=== PATIENT | male | born 1995 | race Caucasian/White ===

== ENCOUNTER 2017-02-21 15:00 | Inpatient (IN) | payer OTHER, BC ==
[~2017-02-21] VITALS: Ht 188 cm; Wt 58.5 kg
[2017-02-21] VITALS (8 sets, daily range): BP systolic 115–122; BP diastolic 72–75; PULSE 98–105; RESP 16; TEMP 99.9; O2SAT 95–100
[~2017-02-21 15:00] MED LIST: LIDOCAINE HCL 2% 100 MG/5 ML SYRINGE IV PUSH ONE
[2017-02-21] MEDS ORDERED: SUCCINYLCHOLINE CHLORIDE 200 MG/10 ML VIAL ONE (15:10)
[2017-02-21] MEDS ORDERED: ETOMIDATE 20 MG/10 ML VIAL ONE (15:11)
[2017-02-21] MEDS ORDERED: MIDAZOLAM HCL 5 MG/ML VIAL (1 ML) ONE ×3 (15:13→16:10)
[2017-02-21] MEDS ORDERED: PROPOFOL 1000 MG/100 ML INJ 100 ML ONE ×2 (15:23→17:31)
[2017-02-21] MEDS ORDERED: DIPHTH/TETANUS/ACEL PERTUSSIS (BOOSTER) 0.5 ML VIAL/PFS IM ONE (15:26)
[2017-02-21 15:40] LABS: I-STAT POTASSIUM 3.3 MMOL/L (3.5-4.9); I-STAT SODIUM 143 MMOL/L (138-146)
[2017-02-21 15:44] LABS: AUTOMATED NEUTROPHIL # 16.7 TH/MM3 (1.8-7.7); BASOPHIL # 0.1 TH/MM3 (0-0.2); BASOPHIL % 0.2 % (0.0-2.0); EOSINOPHIL % 0.2 % (0.0-4.0); HEMATOCRIT 45.6 % (39.0-51.0); HEMO FLAGS DIFF FINAL; LYMPHOCYTE # 3.5 TH/MM3 (1.0-4.8); MEAN CORPUSCULAR HEMOGLOBIN 29.8 PG (27.0-34.0); MEAN CORPUSCULAR HGB CONC 33.8 % (32.0-36.0); NEUT % 75.6 % (16.0-70.0); PLATELET COUNT 315 TH/MM3 (150-450); RED BLOOD COUNT 5.18 MIL/MM3 (4.50-5.90); RED CELL DISTRIBUTION WIDTH 12.2 % (11.6-17.2); WHITE BLOOD COUNT 22.1 TH/MM3 (4.0-11.0)
[2017-02-21] MEDS ORDERED: MISCELLANEOUS NURSING INFORMATION XX SCH (15:45)
[2017-02-21] MEDS ORDERED: ENALAPRILAT 1.25 MG/ML VIAL IV PRN (15:45)
[2017-02-21] MEDS ORDERED: SODIUM CHLORIDE 0.9% FLUSH 10 ML FLUSH IV FLUSH PRN (15:45)
[2017-02-21] MEDS ORDERED: CHLORHEXIDINE GLUCONATE 2 % 1 PACK (2 CLOTHS) TOP PRN (15:45)
[2017-02-21 15:49] LABS: APTT (PATIENT) 25.2 SEC (24.3-30.1); PROTHROMBIN TIME - PATIENT 11.4 SEC (9.8-11.6)
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
[2017-02-21] MEDS ORDERED: IOHEXOL 350 MG/ML 10 ML VIAL (for RAD DIAG) IV ONE (15:55)
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
--- NOTE | 2017-02-21 16:43 | PD.OP ---
Operative Report Date of Surgery: Feb 21, 2017 Preoperative Diagnosis: Traumatic brain injury with a left acute subdural hemorrhage and cerebral contusions; multiple left frontal and temporal scalp lacerations Postoperative Diagnosis: Same Procedure: Left frontal twist drill hole Gino intracanal pressure monitor placement; repair of 7 cm frontal and 4 cm left temporal scalp laceration Anesthesia: Local with sedation Surgeon: Michele Teixeira M.D. Court Deputy(s): None Operation and Findings: Following administration of the intravenous Versed along with continuation of the Diprivan and fentanyl drip with the oxygen saturation and hemodynamic monitoring in the intensive care unit, the right frontal region was shaved and the prep with chlor prep and sterilely draped. A 7 cm left frontal scalp laceration along with 4 cm left temporal scalp laceration was visualized and cleaned and prepped with the ChloraPrep also. Skin ophelia are used for primary scalp laceration closure. Using landmarks of 11 cm behind the nasion and 3 cm to the left of the midline, a 1 cm scalp incision was made after infiltrating with 1% lidocaine with epinephrine solution. With a handheld drill a twist drill hole was made in the underlying dura penetrated with a blunt probe. The [place] bolt was then secured to the skull. The fiberoptic catheter zeroed and passed into the subarachnoid space with an opening pressure of 14 mmHg noted. A sterile dressing was applied. There were no complications and blood loss was less than 5 cc. Michele Teixeira MD Feb 21, 2017 16:43
[2017-02-21] MEDS: SODIUM CHLOR 0.9% 1000 ML INJ 1,000 ML IV SCH ×2 (17:00→23:11)
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
[2017-02-21] MEDS ORDERED: POTASSIUM PHOSPHATE MONOBASIC 500 MG TAB PO PRN (17:45)
[2017-02-21] MEDS ORDERED: POTASSIUM PHOSPHATE MONOBASIC 500 MG TAB PO/TUBE PRN (17:45)
[2017-02-21] MEDS ORDERED: MAGNESIUM SULFATE INJ 2 GM in SODIUM CHLORIDE 0.9% INJ 96 ML IV PRN (17:45)
[2017-02-21] MEDS ORDERED: POTASSIUM CHLORIDE 25 MEQ EFFERVESCENT TAB PO PRN (17:45)
[2017-02-21] MEDS ORDERED: MAGNESIUM OXIDE 400 MG TAB PO PRN (17:45)
[2017-02-21] MEDS ORDERED: POTASSIUM CHLOR 20 MEQ PREMIX 100 ML IV PRN (17:45)
[2017-02-21] MEDS ORDERED: MAGNESIUM SULFATE INJ 4 GM in SODIUM CHLORIDE 0.9% INJ 92 ML IV PRN (17:45)
[2017-02-21] MEDS ORDERED: SODIUM PHOSPHATE INJ 30 MMOL in SODIUM CHLOR 0.9% 250 ML INJ 240 ML IV PRN (17:45)
[2017-02-21] MEDS: PANTOPRAZOLE SODIUM 40 MG VIAL IVP SCH (18:00)
[2017-02-21] MEDS: fentaNYL DRIP 250 ML IV SCH (18:14)
[2017-02-21] MEDS: MIDAZOLAM 100 MG/ML INJ 100 ML IV SCH (18:14)
[2017-02-21] MEDS ORDERED: ceFAZolin 2 GM PREMIX 50 ML ONE (18:23)
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
[2017-02-21] MEDS ORDERED: IODIXANOL 320 MG/ML 50 ML VIAL (for RAD SPEC) I-ARTERIAL ONE (19:16)
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
[2017-02-21 20:17] LABS: AMPHETAMINE, URINE NEG (NEG); BARBITURATES, URINE NEG (NEG); COCAINE, URINE NEG (NEG)
[2017-02-21] MEDS: levETIRAcetam INJ 500 MG in SODIUM CHLORIDE 0.9% INJ 100 ML IV SCH (21:10)
[2017-02-21] MEDS: MULTIVITAMIN INJ 10 ML, THIAMINE INJ 100 MG, FOLIC ACID INJ 1 MG in SODIUM CHLORID 0.9%... IV SCH (21:10)
[2017-02-21] MEDS: DOCUSATE SODIUM 100 MG CAP PO SCH (21:10)
[2017-02-21] MEDS ORDERED: ACETAMINOPHEN 1000 MG/100 ML VIAL IV PRN (21:30)
[2017-02-21 21:37] LABS: HEMATOCRIT 38.3 % (39.0-51.0); REVIEW FLAG FINAL
[2017-02-21 21:55] LABS: BLOOD GAS BASE EXCESS -2.9 mmol/L (-2-2); BLOOD GAS CARBOXYHEMOGLOBIN 0.8 % (0-4); BLOOD GAS HCO3 21 mmol/L (22-26); BLOOD GAS METHEMOGLOBIN 0.9 % (0-2); BLOOD GAS O2 HGB SATURATION 98 % (90-100); BLOOD GAS OXYGEN CONTENT 18.4 Vol % (12.0-20.0); BLOOD GAS PCO2 30 mmHg (38-42); BLOOD GAS PO2 291 mmHg (61-120); BLOOD GAS TOTAL HGB 12.8 G/DL (12.0-16.0); CRITICAL VALUE NO; DRAW SITE ART LINE; FIO2 70 %; OXYGEN DEVICE VENTILATOR; STAT NO; TEMP CORR TO 98.6
[2017-02-21 21:56] LABS: VENT SETTINGS AC/16/500/PEEP 5
[2017-02-21] MEDS: BACITRACIN TOP OINT 15 GM TUBE TOP SCH (22:06)
[2017-02-21] MEDS: PROPOFOL 1000 MG/100 ML INJ 100 ML IV SCH (22:07)
[2017-02-22] VITALS (20 sets, daily range): BP systolic 90–143; BP diastolic 54–74; PULSE 100–134; RESP 16; TEMP 99.9–102.2; O2SAT 95–100
[2017-02-22] MEDS ORDERED: NOREPINEPHRINE-DEXTROSE DRIP 250 ML IV ONE (00:31)
[2017-02-22] MEDS ORDERED: TERBUTALINE INJ 1 MG/ML AMP SQ PRN (00:45)
[2017-02-22] MEDS ORDERED: NOREPINEPHRINE 4 MG/4 ML AMP ONE (00:56)
[2017-02-22 01:21] LABS: REVIEW FLAG FINAL
[2017-02-22] MEDS: PROPOFOL 1000 MG/100 ML INJ 100 ML IV SCH ×5 (01:32→22:27)
[2017-02-22] MEDS: MIDAZOLAM 100 MG/ML INJ 100 ML IV SCH ×2 (03:03→17:34)
[2017-02-22] MEDS: fentaNYL DRIP 250 ML IV SCH ×3 (03:03→22:27)
[2017-02-22 04:24] LABS: AUTOMATED NEUTROPHIL # 12.1 TH/MM3 (1.8-7.7); BASOPHIL # 0.1 TH/MM3 (0-0.2); BASOPHIL % 0.3 % (0.0-2.0); EOSINOPHIL # 0.3 TH/MM3 (0-0.4); HEMATOCRIT 34.2 % (39.0-51.0); HEMO FLAGS DIFF FINAL; LYMPH % 8.3 % (9.0-44.0); LYMPHOCYTE # 1.3 TH/MM3 (1.0-4.8); MEAN CELL VOLUME 86.6 FL (80.0-100.0); MEAN CORPUSCULAR HEMOGLOBIN 30.9 PG (27.0-34.0); MEAN CORPUSCULAR HGB CONC 35.6 % (32.0-36.0); MONO % 12.7 % (0.0-8.0); NEUT % 76.7 % (16.0-70.0); PLATELET COUNT 208 TH/MM3 (150-450); RED BLOOD COUNT 3.95 MIL/MM3 (4.50-5.90); RED CELL DISTRIBUTION WIDTH 12.1 % (11.6-17.2); WHITE BLOOD COUNT 15.8 TH/MM3 (4.0-11.0)
--- NOTE | 2017-02-22 04:27 | RADRPT ---
EXAM DATE/TIME: 02/22/2017 03:41 [facility] COMPARISON: CHEST SINGLE AP, February 21, 2017, 15:04. CHEST SINGLE AP, February 21, 2017, 19:44. INDICATIONS : Short of breath. MEDICAL HISTORY : None. SURGICAL HISTORY : None. ENCOUNTER: Subsequent ACUITY: 1 week PAIN SCORE: 0/10 LOCATION: Bilateral chest FINDINGS: Lines and tubes are present not significantly changed. Right lung base opacity is present probably co llapsed right middle lobe and lower lobe. Mucous plugging should be entertained. Pleural effusion is difficult to exclude at this time. The left lung is clear. CONCLUSION: Probable collapsed right middle lobe and lower lobe and mucous plugging should be entertained. Right pleural effusion is difficult to exclude. Varinder Damico MD on February 22, 2017 at 4:24 Board Certified Radiologist. This report was verified electronically.
[2017-02-22] MEDS: CHLORHEXIDINE GLUCONATE 2 % 1 PACK (2 CLOTHS) TOP SCH (04:39)
[2017-02-22 04:45] LABS: BICARBONATE 22.4 MEQ/L (21.0-32.0); POTASSIUM 3.4 MEQ/L (3.5-5.1)
[2017-02-22] MEDS ORDERED: EPINEPHrine HCL (1:10,000) 1 MG/10 ML SYRINGE ONE (04:55)
[2017-02-22] MEDS ORDERED: ATROPINE SULFATE 1 MG/10 ML SYRINGE ONE (04:55)
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
[2017-02-22] MEDS: ACETAMINOPHEN 1000 MG/100 ML VIAL IV PRN ×2 (05:58→12:52)
[2017-02-22] MEDS: SODIUM CHLOR 0.9% 1000 ML INJ 1,000 ML IV SCH ×3 (05:59→16:35)
[2017-02-22] MEDS: POTASSIUM CHLOR 40 MEQ PREMIX 100 ML IV PRN (06:44)
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
[2017-02-22] MEDS: NOREPINEPHRINE INJ 4 MG in SODIUM CHLOR 0.9% 250 ML INJ 246 ML IV SCH ×4 (08:11→23:32)
[2017-02-22] MEDS: levETIRAcetam INJ 500 MG in SODIUM CHLORIDE 0.9% INJ 100 ML IV SCH ×2 (08:12→19:25)
[2017-02-22] MEDS: DOCUSATE SODIUM 100 MG CAP PO SCH ×2 (08:12→19:26)
[2017-02-22] MEDS: BACITRACIN TOP OINT 15 GM TUBE TOP SCH ×2 (08:12→19:43)
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
[2017-02-22 11:54] LABS: REVIEW FLAG FINAL
[2017-02-22] MEDS: SODIUM CHLORIDE 23.4% INJ 188 MEQ in SODIUM CHLOR 0.9% 1000 ML INJ 1,000 ML IV SCH (12:23)
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
[2017-02-22] MEDS: MULTIVITAMIN INJ 10 ML, THIAMINE INJ 100 MG, FOLIC ACID INJ 1 MG in SODIUM CHLORID 0.9%... IV SCH (16:51)
[2017-02-22] MEDS: PANTOPRAZOLE SODIUM 40 MG VIAL IVP SCH (16:51)
[2017-02-22] MEDS ORDERED: ROCURONIUM INJ 50 MG/5 ML VIAL ONE (17:32)
[2017-02-22] MEDS ORDERED: ROCURONIUM INJ 50 MG/5 ML VIAL IV ONE (17:45)
--- NOTE | 2017-02-22 17:53 | RADRPT ---
EXAM DATE/TIME: 02/22/2017 17:11 This report includes an Addendum and supersedes previous reports for this exam. [facility] COMPARISON: CHEST SINGLE AP, February 22, 2017, 3:41. INDICATIONS : Shortness of breath. MEDICAL HISTORY : None. SURGICAL HISTORY : None. ENCOUNTER: Subsequent ACUITY: 2 days PAIN SCORE: Non-responsive. LOCATION: Bilateral chest FINDINGS: The endotracheal tube has its tip approximately 4 cm above the soo. A nasogastric tube has its tip below the diaphragm. A right subclavian central line has its tip in the right atrium. There is no p neumothorax. Hazy opacity is noted within the right lung base consistent with atelectasis and/or con solidation. Clinical correlation is recommended. The left lung is clear. CONCLUSION: 1. Hazy opacity within the right lung base consistent with atelectasis and/or pneumonia. Clinical cor relation is recommended. 2. Multiple tubes and lines are stable. Elmer Vizcaino MD on February 22, 2017 at 17:48 Board Certified Radiologist. This report was verified electronically. ADDENDUM: Right base atelectasis is associated with volume loss and may be on the basis of mucous plugging. The re is associated rightward mediastinal shift. Dylan Heck MD on February 22, 2017 at 18:14 Board Certified Radiologist. This report was verified electronically.
--- NOTE | 2017-02-22 18:03 | PD.PROCEDR ---
Procedure Note Procedure Procedure: Diagnostic and Bronchoscopy Indication: R middle and lower lobe collapse Description: Patient was continuously sedated with propofol, fentanyl and versed gtt. NM paralysis with 50 mg Rocuronium. Bronchoscope placed within ETT and anterior airways inspected (trachea, right and left mainstem). R mainstem bronchus and bronchus intermedius was completely obstructed with thick yellow mucus. All secretions cleared with multiple saline lavages and suctioning. Bronchoscope then advance to RLL and RML subsegmental bronchi which had moderate amount of yellow secretions. BAL specimen collected from right lower lobe and sent for culture. Right upper lobe subsegmental bronchi also had large amount of yellow thick secretions which was lavaged and suctioned out. After this left lung was inspected. Left lower lobe, left upper lobe and lingular segments were devoid of major secretions. Patient tolerated procedure well. 100 g IV fentanyl was also pushed due to transient ICP elevation to 22. CXR: Follow up CXR pending Complications: Pt tolerated procedure well with no acute complications noted. BAL for bronchoscopy was negligible Sonny Richardson MD Feb 22, 2017 18:03
[2017-02-22] MEDS: PIPERACIL-TAZO 4.5 GM PREMIX 100 ML IV SCH (18:24)
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
--- NOTE | 2017-02-22 18:34 | RADRPT ---
EXAM DATE/TIME: 02/22/2017 18:11 [facility] COMPARISON: No previous studies available for comparison. INDICATIONS : Post bronchoscopy. Right lower lung atelectasis. MEDICAL HISTORY : None. SURGICAL HISTORY : None. ENCOUNTER: Initial ACUITY: 1 day PAIN SCORE: Non-responsive. LOCATION: Right chest FINDINGS: Slightly improved aeration seen at the right lung base. The associated volume loss has decreased with now minimal rightward mediastinal shift. No large effusion demonstrated. No pneumothorax. Patient remains intubated. Endotracheal tube tip is about 4 cm above the soo. There is a nasogastr ic tube with tip in the stomach again seen. Right subclavian central venous catheter with tip in the right atrium again noted. CONCLUSION: Decreased atelectasis/volume loss of the right base. No pneumothorax. Unchanged lines and tubes. Dylan Heck MD on February 22, 2017 at 18:31 Board Certified Radiologist. This report was verified electronically.
[2017-02-22] MEDS: CHLORHEXIDINE 0.12% (ORAL KIT) 15 ML CUP MT SCH (19:25)
[2017-02-22] MEDS ORDERED: VANCOMYCIN INJ 1,250 MG in SODIUM CHLOR 0.9% 250 ML INJ 250 ML IV ONE (20:00)
[2017-02-22 23:52] LABS: BLOOD GAS BASE EXCESS -5.7 mmol/L (-2-2); BLOOD GAS CARBOXYHEMOGLOBIN 0.7 % (0-4); BLOOD GAS HCO3 20 mmol/L (22-26); BLOOD GAS METHEMOGLOBIN 0.9 % (0-2); BLOOD GAS O2 HGB SATURATION 94 % (90-100); BLOOD GAS OXYGEN CONTENT 15.3 Vol % (12.0-20.0); BLOOD GAS PCO2 40 mmHg (38-42); BLOOD GAS PO2 78 mmHg (61-120); BLOOD GAS TOTAL HGB 11.6 G/DL (12.0-16.0); CRITICAL VALUE NO; OXYGEN DEVICE VENTILATOR; TEMP CORR TO 98.6
[2017-02-22 23:53] LABS: DRAW SITE ART LINE; FIO2 70 %; STAT NO; VENT SETTINGS AC/16/625/PEEP5
[2017-02-23] VITALS (23 sets, daily range): BP systolic 106–148; BP diastolic 51–68; PULSE 84–132; RESP 14–22; TEMP 97.2–102.6; O2SAT 97–100
[2017-02-23] MEDS: RESP: ALBUTEROL 2.5 MG/IPRATROPIUM 0.5 MG NEB (SCH) NEB ×7 (00:56→23:44)
[2017-02-23] MEDS: PIPERACIL-TAZO 4.5 GM PREMIX 100 ML IV SCH ×5 (00:59→23:36)
[2017-02-23] MEDS: SODIUM CHLOR 0.9% 1000 ML INJ 1,000 ML IV SCH ×4 (02:07→19:34)
[2017-02-23] MEDS: PROPOFOL 1000 MG/100 ML INJ 100 ML IV SCH ×3 (02:40→16:58)
[2017-02-23] MEDS: NOREPINEPHRINE INJ 4 MG in SODIUM CHLOR 0.9% 250 ML INJ 246 ML IV SCH ×4 (02:41→18:42)
[2017-02-23] MEDS: MIDAZOLAM 100 MG/ML INJ 100 ML IV SCH (03:41)
[2017-02-23 04:03] LABS: BLOOD GAS BASE EXCESS -5.3 mmol/L (-2-2); BLOOD GAS CARBOXYHEMOGLOBIN 0.7 % (0-4); BLOOD GAS HCO3 20 mmol/L (22-26); BLOOD GAS METHEMOGLOBIN 0.9 % (0-2); BLOOD GAS O2 HGB SATURATION 96 % (90-100); BLOOD GAS OXYGEN CONTENT 15.6 Vol % (12.0-20.0); BLOOD GAS PCO2 39 mmHg (38-42); BLOOD GAS PO2 96 mmHg (61-120); BLOOD GAS TOTAL HGB 11.5 G/DL (12.0-16.0); TEMP CORR TO 98.6
[2017-02-23 04:05] LABS: CRITICAL VALUE YES
[2017-02-23 04:07] LABS: DRAW SITE ART LINE; FIO2 70 %; OXYGEN DEVICE AC/14/625/PEEP5; STAT NO
[2017-02-23 04:58] LABS: BASOPHIL # 0.1 TH/MM3 (0-0.2); BASOPHIL % 0.7 % (0.0-2.0); EOSINOPHIL # 0.5 TH/MM3 (0-0.4); EOSINOPHIL % 2.5 % (0.0-4.0); HEMATOCRIT 32.3 % (39.0-51.0); HEMO FLAGS DIFF FINAL; LYMPH % 3.9 % (9.0-44.0); LYMPHOCYTE # 0.7 TH/MM3 (1.0-4.8); MEAN CELL VOLUME 89.3 FL (80.0-100.0); MEAN CORPUSCULAR HEMOGLOBIN 30.2 PG (27.0-34.0); MEAN CORPUSCULAR HGB CONC 33.9 % (32.0-36.0); MONO % 8.4 % (0.0-8.0); NEUT % 84.5 % (16.0-70.0); PLATELET COUNT 171 TH/MM3 (150-450); RED BLOOD COUNT 3.62 MIL/MM3 (4.50-5.90); RED CELL DISTRIBUTION WIDTH 12.3 % (11.6-17.2); WHITE BLOOD COUNT 18.9 TH/MM3 (4.0-11.0)
[2017-02-23 05:03] LABS: ALKALINE PHOSPHATASE 254 U/L (45-117); ALT (GPT) 116 U/L (9-52); ANION GAP 9 MEQ/L (5-15); AST (GOT) 74 U/L (15-39); BICARBONATE 20.8 MEQ/L (21.0-32.0); BLOOD UREA NITROGEN 6 MG/DL (7-18); CHLORIDE 118 MEQ/L (98-107); GLOMERULAR FILTRATION RATE 121 ML/MIN (>89); MAGNESIUM 2.1 MG/DL (1.5-2.5); POTASSIUM 3.9 MEQ/L (3.5-5.1); SODIUM (NA) 148 MEQ/L (136-145); TOTAL BILIRUBIN ADULT 0.5 MG/DL (0.2-1.0)
[2017-02-23] MEDS: CHLORHEXIDINE GLUCONATE 2 % 1 PACK (2 CLOTHS) TOP SCH (05:03)
--- NOTE | 2017-02-23 05:47 | RADRPT ---
EXAM DATE/TIME: 02/23/2017 04:46 [facility] COMPARISON: CHEST SINGLE AP, February 22, 2017, 18:11. INDICATIONS : Shortness of breath. MEDICAL HISTORY : None. SURGICAL HISTORY : None. ENCOUNTER: Subsequent ACUITY: 3 days PAIN SCORE: Non-responsive. LOCATION: Bilateral chest FINDINGS: Lines and tubes are present not significantly changed. There is improvement in the aeration of the ri ght lung base since the prior examination with dense consolidation remaining. Slight atelectasis is p resent in the left lung base. Heart and mediastinum are unremarkable for technique. CONCLUSION: Slight improvement in aeration of right lung base. Varinder Damico MD on February 23, 2017 at 5:44 Board Certified Radiologist. This report was verified electronically.
[2017-02-23 06:33] LABS: BLOOD GAS BASE EXCESS -5.3 mmol/L (-2-2); BLOOD GAS CARBOXYHEMOGLOBIN 0.6 % (0-4); BLOOD GAS HCO3 20 mmol/L (22-26); BLOOD GAS O2 HGB SATURATION 92 % (90-100); BLOOD GAS OXYGEN CONTENT 14.5 Vol % (12.0-20.0); BLOOD GAS PCO2 43 mmHg (38-42); BLOOD GAS PO2 74 mmHg (61-120); BLOOD GAS TOTAL HGB 11.1 G/DL (12.0-16.0); CRITICAL VALUE YES; OXYGEN DEVICE VENTILATOR; TEMP CORR TO 98.6
[2017-02-23 06:34] LABS: DRAW SITE ART LINE; FIO2 70 %; STAT NO; VENT SETTINGS AC/14/625/PEEP 5
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
[2017-02-23] MEDS: fentaNYL DRIP 250 ML IV SCH ×2 (06:50→16:03)
[2017-02-23] MEDS: DOCUSATE SODIUM 100 MG CAP PO SCH ×2 (08:16→19:34)
[2017-02-23] MEDS: levETIRAcetam INJ 500 MG in SODIUM CHLORIDE 0.9% INJ 100 ML IV SCH ×2 (08:16→19:33)
[2017-02-23] MEDS: AZITHROMYCIN INJ 500 MG in SODIUM CHLOR 0.9% 250 ML INJ 250 ML IV SCH (08:16)
[2017-02-23] MEDS: CHLORHEXIDINE 0.12% (ORAL KIT) 15 ML CUP MT SCH ×2 (08:16→19:33)
[2017-02-23] MEDS: BACITRACIN TOP OINT 15 GM TUBE TOP SCH ×2 (08:17→19:34)
[2017-02-23 08:36] LABS: BLOOD GAS BASE EXCESS -4.7 mmol/L (-2-2); BLOOD GAS CARBOXYHEMOGLOBIN 0.6 % (0-4); BLOOD GAS HCO3 20 mmol/L (22-26); BLOOD GAS METHEMOGLOBIN 0.8 % (0-2); BLOOD GAS O2 HGB SATURATION 93 % (90-100); BLOOD GAS OXYGEN CONTENT 18.7 Vol % (12.0-20.0); BLOOD GAS PO2 75 mmHg (61-120); BLOOD GAS TOTAL HGB 14.2 G/DL (12.0-16.0); CRITICAL VALUE NO; DRAW SITE ART LINE; FIO2 60 %; OXYGEN DEVICE VENTILATOR; STAT NO; TEMP CORR TO 98.6; VENT SETTINGS 625/18/PEEP10
[2017-02-23 08:37] LABS: BLOOD GAS PCO2 39 mmHg (38-42)
[2017-02-23] MEDS: SODIUM CHLORIDE 23.4% INJ 188 MEQ in SODIUM CHLOR 0.9% 1000 ML INJ 1,000 ML IV SCH (10:00)
[2017-02-23] MEDS ORDERED: ALBUMIN HUMAN 5% 25 GM/500 ML BOTTLE IV ONE (11:00)
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
--- NOTE | 2017-02-23 12:52 | HHI.PR ---
Neuropsych Emotional Emotional: UnabletoAssess: Emotional, Anxious/Fearful, Depressed/Sad, Hostile/ Resentful, Irritable/Angry/Frustrate, Labile, Constricted/Blunted Behavior Behavior: Unable to Asses: Behavior, Coping/Acceptance, Cooperative w/ Treatment, Motivation, Frustration Tolerance/[place], Impulsive/Agitated, Suicidal/ Homicidal Risk Cognitive Cognitive: Unable to Asses: Cognitive, Attention/Concentration, Confused/ Orientation, Insight/Awareness, Judgement/Problem-Solving, Memory Progress Notes/Response to Tx Contents of Sessions: Adjustment Time with Patient: 15 minutes Premorbid psychological status Premorbid Cognitive, Emotional and Behavioral Status: Unable to Assess. Family was not present to discuss. Behavioral Reactions of Patient and Family/Support System: Unable to Assess. The patients family will likely experience ongoing issues of adjustment given the nature of the injury, and this aspect of recovery will require ongoing monitoring. Emotional/Behavioral Status of Patient and Family/Support System: Unable to Assess. Pertinent issues, if appropriate to this patients clinical care, are described in detail above. Maximizing acute care outcome It is recommended that the patient be monitored for emergent behavioral impulsivity as the medical condition evolves. This patients neuropathological challenges may limit their rehabilitation potential going forward, and these challenges will require specialized therapeutic skills to maximize outcome. Additionally, the patients family is experiencing ongoing issues of adjustment given the traumatic nature of the injury, and they may benefit from ongoing psychological assistance. Anticipated Problems Ongoing areas of concern will include behavioral impulsivity, lack of insight and judgment, which is expected to improve with time and treatment. Presently , the patient is intubated and sedated. Treatment Plan This clinician will continue to follow with you throughout the course of this patients acute care treatment, and I will be available to meet with the patient s family/support system to facilitate their understanding and the ongoing care of their family member. The goals of neuropsychological intervention shall be both educational and supportive to the family/support system as is deemed clinically appropriate. [facility] Level: I:No response-total assistance Impression This patient sustained a severe traumatic brain injury with anticipated major neurocognitive disorder. Diagnosis: (1) Major neurocognitive disorder as late effect of traumatic brain injury without behavioral disturbance Status: Acute Progress Note Narrative Ongoing follow-up of patient seen during daily trauma rounds. This is day 2 post injury. The patient is stable, with ICPs controlled with propofol and fentanyl. He withdraws to pain x 4. He remains at [facility]. I will continue to follow. Tom Dunaway PhD Feb 23, 2017 12:52
[2017-02-23] MEDS ORDERED: VANCOMYCIN INJ 1,500 MG in SODIUM CHLORID 0.9% 500 ML INJ 500 ML IV ONE (13:45)
[2017-02-23] MEDS ORDERED: Vancomycin Consult Pharmacy 1 EA OTHER SCH (13:45)
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
[2017-02-23] MEDS: VANCOMYCIN INJ 1,250 MG in SODIUM CHLOR 0.9% 250 ML INJ 250 ML IV SCH (16:02)
[2017-02-23] MEDS: ACETAMINOPHEN 1000 MG/100 ML VIAL IV PRN ×2 (16:02→23:35)
[2017-02-23] MEDS: MULTIVITAMIN INJ 10 ML, THIAMINE INJ 100 MG, FOLIC ACID INJ 1 MG in SODIUM CHLORID 0.9%... IV SCH (16:58)
[2017-02-23] MEDS: PANTOPRAZOLE SODIUM 40 MG VIAL IVP SCH (16:59)
--- NOTE | 2017-02-23 18:59 | PD.PROCEDR ---
Procedure Note Procedure Date of procedure March 23, 2017 Time 1741 Procedure: Subclavian central line placement A time-out was completed verifying correct patient, procedure, site, positioning , and special equipment if applicable. The patient was placed in a dependent position appropriate for central line placement based on the vein to be cannulated. The patients right shoulder was prepped and draped in sterile fashion. 1% Lidocaine was used to anesthetize the surrounding skin area. A triple lumen 9-[place] Cordis catheter was introduced into the the right subclavian vein using the Seldinger technique. The catheter was threaded smoothly over the guide wire and appropriate blood return was obtained. Each lumen of the catheter was evacuated of air and flushed with sterile saline. The catheter was then sutured in place to the skin and a sterile dressing applied. Perfusion to the extremity distal to the point of catheter insertion was checked and found to be adequate. Estimated Blood Loss: 1ml The patient tolerated the procedure well and there were no complications. Flex Colorado MD Feb 23, 2017 18:59
--- NOTE | 2017-02-23 19:01 | PD.PROCEDR ---
Procedure Note Procedure Procedure date: February 21, 2017 Procedure time: 1804 Procedure: Right radial arterial line placement A time-out was completed verifying correct patient, procedure, site, positioning , and special equipment if applicable. Allens test was performed to ensure adequate perfusion. The patients right wrist was prepped and draped in sterile fashion. 1% Lidocaine was used to anesthetize the area. A 18G Arrow arterial line was introduced into the radial artery. The catheter was threaded over the guide wire and the needle was removed with appropriate pulsatile blood return. The catheter was then sutured in place to the skin and a sterile dressing applied. Perfusion to the extremity distal to the point of catheter insertion was checked and found to be adequate. Estimated Blood Loss: 1ml The patient tolerated the procedure well and there were no complications. Flex Colorado MD Feb 23, 2017 19:01
[2017-02-23] MEDS: MUPIROCIN 2% OINT 1 APPLIC/GM SYR NASAL SCH (19:33)
[2017-02-24] VITALS (18 sets, daily range): BP systolic 107–132; BP diastolic 52–93; PULSE 76–128; RESP 18–20; TEMP 96.7–100.9; O2SAT 97–100
[2017-02-24] MEDS: VANCOMYCIN INJ 1,250 MG in SODIUM CHLOR 0.9% 250 ML INJ 250 ML IV SCH ×3 (01:25→16:06)
[2017-02-24] MEDS: PROPOFOL 1000 MG/100 ML INJ 100 ML IV SCH ×2 (01:25→07:53)
[2017-02-24] MEDS: RESP: ALBUTEROL 2.5 MG/IPRATROPIUM 0.5 MG NEB (SCH) NEB ×6 (03:24→23:38)
[2017-02-24 04:26] LABS: BASOPHIL # 0.1 TH/MM3 (0-0.2); BASOPHIL % 0.7 % (0.0-2.0); EOSINOPHIL # 0.6 TH/MM3 (0-0.4); EOSINOPHIL % 2.7 % (0.0-4.0); HEMATOCRIT 28.8 % (39.0-51.0); LYMPH % 2.7 % (9.0-44.0); LYMPHOCYTE # 0.6 TH/MM3 (1.0-4.8); MEAN CELL VOLUME 89.3 FL (80.0-100.0); MEAN CORPUSCULAR HEMOGLOBIN 30.7 PG (27.0-34.0); MEAN CORPUSCULAR HGB CONC 34.3 % (32.0-36.0); MONO % 9.6 % (0.0-8.0); NEUT % 84.3 % (16.0-70.0); PLATELET COUNT 184 TH/MM3 (150-450); RED BLOOD COUNT 3.22 MIL/MM3 (4.50-5.90); RED CELL DISTRIBUTION WIDTH 12.7 % (11.6-17.2); WHITE BLOOD COUNT 22.5 TH/MM3 (4.0-11.0)
[2017-02-24] MEDS: CHLORHEXIDINE GLUCONATE 2 % 1 PACK (2 CLOTHS) TOP SCH (04:27)
[2017-02-24] MEDS: SODIUM CHLOR 0.9% 1000 ML INJ 1,000 ML IV SCH ×4 (04:27→23:06)
[2017-02-24 04:32] LABS: HEMO FLAGS AUTO DIFF
[2017-02-24 04:40] LABS: ANION GAP 10 MEQ/L (5-15); AST (GOT) 48 U/L (15-39); BICARBONATE 21.5 MEQ/L (21.0-32.0); BLOOD UREA NITROGEN 9 MG/DL (7-18); CHLORIDE 115 MEQ/L (98-107); GLOMERULAR FILTRATION RATE 115 ML/MIN (>89); MAGNESIUM 2.1 MG/DL (1.5-2.5); POTASSIUM 3.7 MEQ/L (3.5-5.1); SODIUM (NA) 146 MEQ/L (136-145)
[2017-02-24 04:45] LABS: ALKALINE PHOSPHATASE 57 U/L (45-117); ALT (GPT) 78 U/L (9-52); TOTAL BILIRUBIN ADULT 0.7 MG/DL (0.2-1.0)
--- NOTE | 2017-02-24 05:19 | RADRPT ---
EXAM DATE/TIME: 02/24/2017 04:43 [place] COMPARISON: CHEST SINGLE AP, February 23, 2017, 4:46. INDICATIONS : Short of breath. MEDICAL HISTORY : None. SURGICAL HISTORY : None. ENCOUNTER: Subsequent ACUITY: 1 week PAIN SCORE: 0/10 LOCATION: Bilateral chest FINDINGS: Macroaaa left lung base parenchymal process has progressed, however there is no significant change in air space process in right lower lung. The rest of the examination has not significantly changed. CONCLUSION: Worsening left lung base mainly as this process and the right lung base air space consolidation has n ot changed. Varinder Damico MD on February 24, 2017 at 5:17 Board Certified Radiologist. This report was verified electronically.
[2017-02-24 05:29] LABS: BLOOD GAS BASE EXCESS -5.5 mmol/L (-2-2); BLOOD GAS CARBOXYHEMOGLOBIN 0.8 % (0-4); BLOOD GAS HCO3 19 mmol/L (22-26); BLOOD GAS METHEMOGLOBIN 0.9 % (0-2); BLOOD GAS O2 HGB SATURATION 97 % (90-100); BLOOD GAS OXYGEN CONTENT 13.7 Vol % (12.0-20.0); BLOOD GAS PCO2 37 mmHg (38-42); BLOOD GAS PO2 134 mmHg (61-120); BLOOD GAS TOTAL HGB 9.8 G/DL (12.0-16.0)
[2017-02-24] MEDS: PIPERACIL-TAZO 4.5 GM PREMIX 100 ML IV SCH ×4 (05:29→23:09)
[2017-02-24 05:30] LABS: CRITICAL VALUE NO; OXYGEN DEVICE VENTILATOR
[2017-02-24 05:31] LABS: FIO2 60 %; TEMP CORR TO 98.6; VENT SETTINGS PRVC
[2017-02-24 05:32] LABS: DRAW SITE ART LINE; STAT NO
[2017-02-24 06:02] LABS: BANDS 34 % (0-6); EOSINOPHILS 1 % (0-4); METAMYELOCYTES 3 % (0-1); NEUTROPHIL # MANUAL DIFF 20.9 TH/MM3 (1.8-7.7); POLYS (SEG NEUTROPHILS) 56 % (16-70); WBC DIFF SAMPLE 100
[2017-02-24 06:03] LABS: PLATELET ESTIMATE SMEAR NORMAL (NORMAL); PLATELET MORPHOLOGY NORMAL (NORMAL); SCAN/DIFF FINAL DIFF MANUAL
[2017-02-24] MEDS: fentaNYL DRIP 250 ML IV SCH (07:53)
[2017-02-24] MEDS ORDERED: DEXMEDETOMIDINE INJ 400 MCG in SODIUM CHLORIDE 0.9% INJ 100 ML IV SCH (08:15)
[2017-02-24] MEDS: AZITHROMYCIN INJ 500 MG in SODIUM CHLOR 0.9% 250 ML INJ 250 ML IV SCH (08:28)
[2017-02-24] MEDS: SODIUM CHLORIDE 23.4% INJ 188 MEQ in SODIUM CHLOR 0.9% 1000 ML INJ 1,000 ML IV SCH (08:29)
[2017-02-24] MEDS: NOREPINEPHRINE INJ 4 MG in SODIUM CHLOR 0.9% 250 ML INJ 246 ML IV SCH (08:29)
[2017-02-24] MEDS: levETIRAcetam INJ 500 MG in SODIUM CHLORIDE 0.9% INJ 100 ML IV SCH ×2 (08:29→20:05)
[2017-02-24] MEDS: DOCUSATE SODIUM 100 MG CAP PO SCH ×2 (08:30→20:05)
[2017-02-24] MEDS: CHLORHEXIDINE 0.12% (ORAL KIT) 15 ML CUP MT SCH ×2 (08:30→20:00)
[2017-02-24] MEDS: MUPIROCIN 2% OINT 1 APPLIC/GM SYR NASAL SCH ×3 (08:30→20:47)
[2017-02-24] MEDS: BACITRACIN TOP OINT 15 GM TUBE TOP SCH ×2 (08:31→20:06)
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
[2017-02-24] MEDS: ENOXAPARIN SODIUM 40 MG/0.4 ML SYRINGE SQ SCH (12:13)
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
[2017-02-24] MEDS ORDERED: PHARMACY ORDERED LAB ONE (15:45)
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
[2017-02-24] MEDS: PANTOPRAZOLE SODIUM 40 MG VIAL IVP SCH (17:50)
[2017-02-24] MEDS: DEXMEDETOMIDINE INJ 400 MCG in SODIUM CHLORIDE 0.9% INJ 100 ML IV SCH (23:06)
[2017-02-25] VITALS (21 sets, daily range): BP systolic 103–134; BP diastolic 62–78; PULSE 72–83; RESP 18–30; TEMP 97.2–99.2; O2SAT 93–100
[2017-02-25] MEDS: VANCOMYCIN INJ 1,500 MG in SODIUM CHLORID 0.9% 500 ML INJ 500 ML IV SCH ×3 (00:20→15:53)
[2017-02-25] MEDS: DEXMEDETOMIDINE INJ 400 MCG in SODIUM CHLORIDE 0.9% INJ 100 ML IV SCH ×4 (03:01→15:53)
[2017-02-25] MEDS: RESP: ALBUTEROL 2.5 MG/IPRATROPIUM 0.5 MG NEB (SCH) NEB ×6 (03:04→22:50)
[2017-02-25] MEDS: CHLORHEXIDINE GLUCONATE 2 % 1 PACK (2 CLOTHS) TOP SCH (04:00)
[2017-02-25 05:35] LABS: BLOOD GAS BASE EXCESS -4.1 mmol/L (-2-2); BLOOD GAS CARBOXYHEMOGLOBIN 0.8 % (0-4); BLOOD GAS HCO3 19 mmol/L (22-26); BLOOD GAS METHEMOGLOBIN 0.6 % (0-2); BLOOD GAS O2 HGB SATURATION 98 % (90-100); BLOOD GAS OXYGEN CONTENT 17.2 Vol % (12.0-20.0); BLOOD GAS PCO2 27 mmHg (38-42); BLOOD GAS PO2 130 mmHg (61-120); BLOOD GAS TOTAL HGB 12.4 G/DL (12.0-16.0); CRITICAL VALUE NO; TEMP CORR TO 98.6
[2017-02-25 05:42] LABS: OXYGEN DEVICE VENT
[2017-02-25 05:43] LABS: DRAW SITE ALINE; FIO2 50 %; STAT NO; ULNAR PULSE PRESENT; VENT SETTINGS SEE COMMENTS
[2017-02-25 05:52] LABS: AUTOMATED NEUTROPHIL # 20.9 TH/MM3 (1.8-7.7); BASOPHIL % 0.1 % (0.0-2.0); EOSINOPHIL # 0.4 TH/MM3 (0-0.4); EOSINOPHIL % 1.8 % (0.0-4.0); HEMATOCRIT 27.8 % (39.0-51.0); LYMPH % 2.6 % (9.0-44.0); LYMPHOCYTE # 0.6 TH/MM3 (1.0-4.8); MEAN CELL VOLUME 88.4 FL (80.0-100.0); MEAN CORPUSCULAR HEMOGLOBIN 30.1 PG (27.0-34.0); MEAN CORPUSCULAR HGB CONC 34.1 % (32.0-36.0); MONO % 7.4 % (0.0-8.0); NEUT % 88.1 % (16.0-70.0); PLATELET COUNT 191 TH/MM3 (150-450); RED BLOOD COUNT 3.14 MIL/MM3 (4.50-5.90); RED CELL DISTRIBUTION WIDTH 12.6 % (11.6-17.2); WHITE BLOOD COUNT 23.7 TH/MM3 (4.0-11.0)
[2017-02-25 05:54] LABS: HEMO FLAGS AUTO DIFF
[2017-02-25] MEDS: PIPERACIL-TAZO 4.5 GM PREMIX 100 ML IV SCH ×3 (06:14→17:17)
[2017-02-25] MEDS: SODIUM CHLOR 0.9% 1000 ML INJ 1,000 ML IV SCH ×3 (06:15→17:17)
[2017-02-25 06:17] LABS: ALKALINE PHOSPHATASE 73 U/L (45-117); ALT (GPT) 59 U/L (9-52); ANION GAP 5 MEQ/L (5-15); AST (GOT) 43 U/L (15-39); BICARBONATE 22.7 MEQ/L (21.0-32.0); BLOOD UREA NITROGEN 11 MG/DL (7-18); CHLORIDE 120 MEQ/L (98-107); GLOMERULAR FILTRATION RATE 198 ML/MIN (>89); MAGNESIUM 2.1 MG/DL (1.5-2.5); POTASSIUM 3.2 MEQ/L (3.5-5.1); SODIUM (NA) 148 MEQ/L (136-145); TOTAL BILIRUBIN ADULT 0.6 MG/DL (0.2-1.0)
--- NOTE | 2017-02-25 06:23 | RADRPT ---
EXAM DATE/TIME: 02/25/2017 04:50 [facility] COMPARISON: CHEST SINGLE AP, February 24, 2017, 4:43. INDICATIONS : Short of breath. MEDICAL HISTORY : None. SURGICAL HISTORY : None. ENCOUNTER: Subsequent ACUITY: 4 - 6 days PAIN SCORE: Non-responsive. LOCATION: Bilateral chest FINDINGS: Lines and tubes are present not significantly changed. There is no change in left lung base infiltrat e and right lung base opacity appears more diffuse. This could be due to interval development of pleu ral effusion and right lung base consolidation may have improved slightly. CONCLUSION: No change in left mid and lower lung infiltrate, the right lung this opacity appears more diffuse pos sibly due to interval development of pulmonary edema. Right lung base air space process possibly slig htly improved. Varindre Damico MD on February 25, 2017 at 6:20 Board Certified Radiologist. This report was verified electronically.
[2017-02-25 07:06] LABS: BANDS 46 % (0-6); CORRECTED NUCLEATED RBC 2 /100 WBC (0-0); EOSINOPHILS 1 % (0-4); NEUTROPHIL # MANUAL DIFF 20.4 TH/MM3 (1.8-7.7); PLATELET ESTIMATE SMEAR NORMAL (NORMAL); PLATELET MORPHOLOGY NORMAL (NORMAL); POLYS (SEG NEUTROPHILS) 40 % (16-70); SCAN/DIFF FINAL DIFF MANUAL; WBC DIFF SAMPLE 100
[2017-02-25] MEDS: POTASSIUM PHOSPHATE INJ 30 MMOL in SODIUM CHLOR 0.9% 250 ML INJ 250 ML IV PRN (08:10)
[2017-02-25] MEDS: levETIRAcetam INJ 500 MG in SODIUM CHLORIDE 0.9% INJ 100 ML IV SCH ×2 (08:11→19:41)
[2017-02-25] MEDS: AZITHROMYCIN INJ 500 MG in SODIUM CHLOR 0.9% 250 ML INJ 250 ML IV SCH (08:11)
[2017-02-25] MEDS: MUPIROCIN 2% OINT 1 APPLIC/GM SYR NASAL SCH ×2 (08:11→21:00)
[2017-02-25] MEDS: DOCUSATE SODIUM 100 MG CAP PO SCH ×2 (08:11→19:42)
[2017-02-25] MEDS: CHLORHEXIDINE 0.12% (ORAL KIT) 15 ML CUP MT SCH ×2 (08:11→19:41)
[2017-02-25] MEDS: BACITRACIN TOP OINT 15 GM TUBE TOP SCH ×2 (08:12→21:00)
[2017-02-25] MEDS: SODIUM CHLORIDE 23.4% INJ 188 MEQ in SODIUM CHLOR 0.9% 1000 ML INJ 1,000 ML IV SCH (08:12)
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
[2017-02-25] MEDS ORDERED: BISACODYL 10 MG SUPP RECTAL ONE (10:15)
[2017-02-25] MEDS: LACTULOSE SYRUP 20 GM/30 ML CUP PO SCH (11:17)
[2017-02-25] MEDS: ENOXAPARIN SODIUM 40 MG/0.4 ML SYRINGE SQ SCH (11:17)
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
[2017-02-25] MEDS ORDERED: LORazepam 2 MG/ML VIAL ONE ×2 (13:12→13:18)
[2017-02-25] MEDS ORDERED: LORazepam 2 MG/ML VIAL IV ONE (13:30)
[2017-02-25] MEDS: METOCLOPRAMIDE HCL 10 MG/2 ML VIAL IV PUSH SCH ×2 (14:12→22:51)
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
--- NOTE | 2017-02-25 15:24 | HHI.PR ---
Neuropsych Progress Notes/Response to Tx Contents of Sessions: Level of Consciousness Time with Patient: 15 minutes Premorbid psychological status Premorbid Cognitive, Emotional and Behavioral Status: Unable to Assess. Family was not present to discuss. Behavioral Reactions of Patient and Family/Support System: Unable to Assess. The patients family will likely experience ongoing issues of adjustment given the nature of the injury, and this aspect of recovery will require ongoing monitoring. Emotional/Behavioral Status of Patient and Family/Support System: Unable to Assess. Pertinent issues, if appropriate to this patients clinical care, are described in detail above. Maximizing acute care outcome It is recommended that the patient be monitored for emergent behavioral impulsivity as the medical condition evolves. This patients neuropathological challenges may limit their rehabilitation potential going forward, and these challenges will require specialized therapeutic skills to maximize outcome. Additionally, the patients family is experiencing ongoing issues of adjustment given the traumatic nature of the injury, and they may benefit from ongoing psychological assistance. Anticipated Problems Ongoing areas of concern will include behavioral impulsivity, lack of insight and judgment, which is expected to improve with time and treatment. Presently , the patient is intubated and sedated. Treatment Plan This clinician will continue to follow with you throughout the course of this patients acute care treatment, and I will be available to meet with the patient s family/support system to facilitate their understanding and the ongoing care of their family member. The goals of neuropsychological intervention shall be both educational and supportive to the family/support system as is deemed clinically appropriate. [facility] Level: I:No response-total assistance Impression This patient sustained a severe traumatic brain injury with anticipated major neurocognitive disorder. Diagnosis: (1) Major neurocognitive disorder as late effect of traumatic brain injury without behavioral disturbance Status: Acute Progress Note Narrative Ongoing follow-up of patient seen in daily trauma rounds. This is day 4 post injury. The patient's CPP/ICP is stable, and he remains intubated and sedated. Neurobehaviorally, he remains a [place]. I will continue to follow. Tom Dunaway PhD Feb 25, 2017 3:24 pm
[2017-02-25] MEDS: PANTOPRAZOLE SODIUM 40 MG VIAL IVP SCH (17:17)
[2017-02-25] MEDS: ACETAMINOPHEN 1000 MG/100 ML VIAL IV PRN (20:35)
[2017-02-25] MEDS: PROPOFOL 1000 MG/100 ML INJ 100 ML IV SCH (20:57)
[2017-02-25] MEDS: ONDANSETRON HCL 4 MG/2 ML VIAL IV PRN (21:06)
[2017-02-25] MEDS ORDERED: LIDOCAINE HCL 2% 100 MG/5 ML SYRINGE ONE (22:26)
[2017-02-25] MEDS ORDERED: EPINEPHrine HCL (1:10,000) 1 MG/10 ML SYRINGE ONE (22:26)
[2017-02-25] MEDS ORDERED: ATROPINE SULFATE 1 MG/10 ML SYRINGE ONE (22:26)
[2017-02-25] MEDS ORDERED: IOHEXOL 350 MG/ML 10 ML VIAL (for RAD DIAG) IV ONE (23:46)
[2017-02-26] VITALS (21 sets, daily range): BP systolic 121–152; BP diastolic 63–82; PULSE 92–118; RESP 21–28; TEMP 99–101.4; O2SAT 95–100
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
[2017-02-26] MEDS: PIPERACIL-TAZO 4.5 GM PREMIX 100 ML IV SCH ×3 (00:21→11:29)
[2017-02-26] MEDS: POTASSIUM PHOSPHATE INJ 30 MMOL in SODIUM CHLOR 0.9% 250 ML INJ 250 ML IV PRN (00:22)
[2017-02-26] MEDS: VANCOMYCIN INJ 1,500 MG in SODIUM CHLORID 0.9% 500 ML INJ 500 ML IV SCH ×4 (01:13→23:19)
[2017-02-26] MEDS: PROPOFOL 1000 MG/100 ML INJ 100 ML IV SCH ×5 (01:13→20:12)
[2017-02-26] MEDS: ACETAMINOPHEN 1000 MG/100 ML VIAL IV PRN ×2 (02:13→21:19)
[2017-02-26] MEDS: SODIUM CHLOR 0.9% 1000 ML INJ 1,000 ML IV SCH ×2 (02:23→08:33)
[2017-02-26] MEDS: RESP: ALBUTEROL 2.5 MG/IPRATROPIUM 0.5 MG NEB (SCH) NEB ×5 (03:14→21:00)
[2017-02-26] MEDS: CHLORHEXIDINE GLUCONATE 2 % 1 PACK (2 CLOTHS) TOP SCH (04:00)
[2017-02-26 05:15] LABS: BLOOD GAS BASE EXCESS -3.2 mmol/L (-2-2); BLOOD GAS CARBOXYHEMOGLOBIN 0.7 % (0-4); BLOOD GAS HCO3 21 mmol/L (22-26); BLOOD GAS METHEMOGLOBIN 1.1 % (0-2); BLOOD GAS O2 HGB SATURATION 97 % (90-100); BLOOD GAS OXYGEN CONTENT 16.2 Vol % (12.0-20.0); BLOOD GAS PCO2 34 mmHg (38-42); BLOOD GAS PO2 146 mmHg (61-120); BLOOD GAS TOTAL HGB 11.7 G/DL (12.0-16.0); TEMP CORR TO 98.6
[2017-02-26 05:16] LABS: CRITICAL VALUE NO; DRAW SITE RT RADIAL; FIO2 60 %; NUMBER OF ARTERIAL PUNCTURES 1; OXYGEN DEVICE VENTILATOR
[2017-02-26 05:16] LABS: AUTOMATED NEUTROPHIL # 21.1 TH/MM3 (1.8-7.7); BASOPHIL % 0.2 % (0.0-2.0); EOSINOPHIL # 0.4 TH/MM3 (0-0.4); EOSINOPHIL % 1.8 % (0.0-4.0); HEMATOCRIT 28.5 % (39.0-51.0); LYMPH % 3.1 % (9.0-44.0); LYMPHOCYTE # 0.8 TH/MM3 (1.0-4.8); MEAN CELL VOLUME 88.6 FL (80.0-100.0); MEAN CORPUSCULAR HGB CONC 33.8 % (32.0-36.0); NEUT % 85.9 % (16.0-70.0); PLATELET COUNT 218 TH/MM3 (150-450); RED BLOOD COUNT 3.21 MIL/MM3 (4.50-5.90); WHITE BLOOD COUNT 24.5 TH/MM3 (4.0-11.0)
[2017-02-26 05:17] LABS: STAT NO; ULNAR PULSE PRESENT
[2017-02-26 05:18] LABS: HEMO FLAGS AUTO DIFF
[2017-02-26] MEDS: METOCLOPRAMIDE HCL 10 MG/2 ML VIAL IV PUSH SCH ×3 (05:22→20:37)
[2017-02-26 05:42] LABS: ALT (GPT) 65 U/L (9-52); ANION GAP 8 MEQ/L (5-15); AST (GOT) 55 U/L (15-39); BICARBONATE 24.4 MEQ/L (21.0-32.0); BLOOD UREA NITROGEN 11 MG/DL (7-18); CHLORIDE 118 MEQ/L (98-107); GLOMERULAR FILTRATION RATE 162 ML/MIN (>89); POTASSIUM 3.2 MEQ/L (3.5-5.1); SODIUM (NA) 150 MEQ/L (136-145)
[2017-02-26 05:45] LABS: ALKALINE PHOSPHATASE 134 U/L (45-117)
[2017-02-26 06:00] LABS: BANDS 2 % (0-6); EOSINOPHILS 1 % (0-4); MYELOCYTES 1 % (0-0); NEUTROPHIL # MANUAL DIFF 23.3 TH/MM3 (1.8-7.7); POLYS (SEG NEUTROPHILS) 92 % (16-70); WBC DIFF SAMPLE 100
[2017-02-26 06:01] LABS: KERATOCYTES 1+ (NORMAL); PLATELET ESTIMATE SMEAR NORMAL (NORMAL); PLATELET MORPHOLOGY NORMAL (NORMAL); SCAN/DIFF FINAL DIFF MANUAL
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
[2017-02-26] MEDS ORDERED: PHARMACY ORDERED LAB-VANCO TROUGH ONE (07:45)
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
[2017-02-26] MEDS: MUPIROCIN 2% OINT 1 APPLIC/GM SYR NASAL SCH ×2 (08:32→20:11)
[2017-02-26] MEDS: levETIRAcetam INJ 500 MG in SODIUM CHLORIDE 0.9% INJ 100 ML IV SCH ×2 (08:32→20:11)
[2017-02-26] MEDS: DOCUSATE SODIUM 100 MG CAP PO SCH ×2 (08:32→20:11)
[2017-02-26] MEDS: BACITRACIN TOP OINT 15 GM TUBE TOP SCH ×2 (08:33→20:11)
[2017-02-26] MEDS: LACTULOSE SYRUP 20 GM/30 ML CUP PO SCH (08:33)
[2017-02-26] MEDS: AZITHROMYCIN INJ 500 MG in SODIUM CHLOR 0.9% 250 ML INJ 250 ML IV SCH (08:34)
[2017-02-26] MEDS: CHLORHEXIDINE 0.12% (ORAL KIT) 15 ML CUP MT SCH ×2 (08:34→20:12)
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
[2017-02-26] MEDS: SODIUM CHLORIDE 23.4% INJ 188 MEQ in SODIUM CHLOR 0.9% 1000 ML INJ 1,000 ML IV SCH (10:00)
[2017-02-26 10:24] LABS: POTASSIUM 3.1 MEQ/L (3.5-5.1)
[2017-02-26] MEDS ORDERED: FUROSEMIDE 40 MG/4 ML VIAL IV PUSH ONE (10:30)
[2017-02-26] MEDS: ENOXAPARIN SODIUM 40 MG/0.4 ML SYRINGE SQ SCH (11:29)
[2017-02-26] MEDS: POTASSIUM CHLOR 40 MEQ PREMIX 100 ML IV PRN ×3 (11:30→23:19)
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
[2017-02-26] MEDS ORDERED: LIDOCAINE 1%/EPINEPHrine 1:100,000 SOLN 50 ML VIAL ONE (13:13)
[2017-02-26] MEDS ORDERED: LIDOCAINE 1%/EPINEPHrine 1:100,000 SOLN 20 ML VIAL INFIL ONE (13:15)
[2017-02-26] MEDS: CEFEPIME INJ 2,000 MG in SODIUM CHLORIDE 0.9% INJ 100 ML IV SCH ×2 (15:01→20:37)
[2017-02-26] MEDS: metroNIDAZOLE 500 MG INJ 100 ML IV SCH ×2 (15:02→23:13)
[2017-02-26] MEDS: LEVOFLOXACIN 750 MG PREMIX INJ 150 ML IV SCH (15:02)
[2017-02-26] MEDS: DEXMEDETOMIDINE INJ 400 MCG in SODIUM CHLORIDE 0.9% INJ 100 ML IV SCH ×2 (15:03→22:23)
[2017-02-26] MEDS ORDERED: LIDOCAINE HCL 1% 20 ML VIAL ONE (16:44)
--- NOTE | 2017-02-26 17:15 | RADRPT ---
EXAM DATE/TIME: 02/26/2017 16:39 [facility] COMPARISON: CHEST SINGLE AP, February 26, 2017, 5:40. INDICATIONS : Status post bronchoscopy. MEDICAL HISTORY : None. SURGICAL HISTORY : None. ENCOUNTER: Subsequent ACUITY: 1 day PAIN SCORE: Non-responsive. LOCATION: Chest FINDINGS: ET tube and central venous catheter are in good position. There is interval improvement with less air -space disease present. Parenchymal changes persist in both lung bases. Heart and pulmonary vasculari ty are normal. CONCLUSION: 1. Interval improvement following bronchoscopy. 2. Support apparatus in good position. Lincoln Kaiser MD FACR on February 26, 2017 at 17:10 Board Certified Radiologist. This report was verified electronically.
[2017-02-26] MEDS: PANTOPRAZOLE SODIUM 40 MG VIAL IVP SCH (18:00)
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
[2017-02-26] MEDS: ONDANSETRON HCL 4 MG/2 ML VIAL IV PRN (22:14)
[2017-02-27] VITALS (18 sets, daily range): BP systolic 113–155; BP diastolic 62–96; PULSE 84–116; RESP 16–29; TEMP 100–100.8; O2SAT 100
[2017-02-27] MEDS: PROPOFOL 1000 MG/100 ML INJ 100 ML IV SCH ×7 (00:41→20:03)
[2017-02-27] MEDS: SODIUM CHLOR 0.9% 1000 ML INJ 1,000 ML IV SCH (02:39)
[2017-02-27] MEDS: RESP: ALBUTEROL 2.5 MG/IPRATROPIUM 0.5 MG NEB (SCH) NEB ×4 (03:02→21:20)
[2017-02-27] MEDS: CHLORHEXIDINE GLUCONATE 2 % 1 PACK (2 CLOTHS) TOP SCH (04:00)
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
[2017-02-27 04:58] LABS: AUTOMATED NEUTROPHIL # 19.8 TH/MM3 (1.8-7.7); BASOPHIL # 0.1 TH/MM3 (0-0.2); BASOPHIL % 0.2 % (0.0-2.0); EOSINOPHIL # 0.9 TH/MM3 (0-0.4); EOSINOPHIL % 3.8 % (0.0-4.0); HEMATOCRIT 26.3 % (39.0-51.0); LYMPH % 3.6 % (9.0-44.0); LYMPHOCYTE # 0.9 TH/MM3 (1.0-4.8); MEAN CELL VOLUME 89.2 FL (80.0-100.0); MEAN CORPUSCULAR HEMOGLOBIN 30.1 PG (27.0-34.0); MEAN CORPUSCULAR HGB CONC 33.7 % (32.0-36.0); MONO % 12.3 % (0.0-8.0); NEUT % 80.1 % (16.0-70.0); PLATELET COUNT 245 TH/MM3 (150-450); RED BLOOD COUNT 2.95 MIL/MM3 (4.50-5.90); RED CELL DISTRIBUTION WIDTH 12.9 % (11.6-17.2); WHITE BLOOD COUNT 24.7 TH/MM3 (4.0-11.0)
[2017-02-27 05:02] LABS: HEMO FLAGS AUTO DIFF
[2017-02-27] MEDS: CEFEPIME INJ 2,000 MG in SODIUM CHLORIDE 0.9% INJ 100 ML IV SCH ×3 (05:04→21:49)
[2017-02-27] MEDS: METOCLOPRAMIDE HCL 10 MG/2 ML VIAL IV PUSH SCH ×3 (05:04→21:49)
[2017-02-27 05:24] LABS: CALCIUM-PROTEIN CORRECTED 8.5 MG/DL (8.5-10.1); POTASSIUM 3.5 MEQ/L (3.5-5.1); TOTAL BILIRUBIN ADULT 0.9 MG/DL (0.2-1.0)
[2017-02-27] MEDS: DOCUSATE SODIUM 100 MG CAP PO SCH ×2 (08:14→20:02)
[2017-02-27] MEDS: LACTULOSE SYRUP 20 GM/30 ML CUP PO SCH (08:14)
[2017-02-27] MEDS: levETIRAcetam INJ 500 MG in SODIUM CHLORIDE 0.9% INJ 100 ML IV SCH ×2 (08:14→20:02)
[2017-02-27] MEDS: MUPIROCIN 2% OINT 1 APPLIC/GM SYR NASAL SCH ×2 (08:15→20:02)
[2017-02-27] MEDS: metroNIDAZOLE 500 MG INJ 100 ML IV SCH ×3 (08:18→23:03)
[2017-02-27] MEDS: VANCOMYCIN INJ 1,500 MG in SODIUM CHLORID 0.9% 500 ML INJ 500 ML IV SCH ×3 (08:19→23:03)
[2017-02-27] MEDS: CHLORHEXIDINE 0.12% (ORAL KIT) 15 ML CUP MT SCH ×2 (08:19→20:00)
[2017-02-27] MEDS: BACITRACIN TOP OINT 15 GM TUBE TOP SCH ×2 (08:20→20:02)
[2017-02-27 08:40] LABS: BANDS 19 % (0-6); CORRECTED NUCLEATED RBC 1 /100 WBC (0-0); EOSINOPHILS 3 % (0-4); MYELOCYTES 2 % (0-0); NEUTROPHIL # MANUAL DIFF 20.7 TH/MM3 (1.8-7.7); POLYS (SEG NEUTROPHILS) 63 % (16-70); WBC DIFF SAMPLE 100
[2017-02-27 08:41] LABS: SCAN/DIFF FINAL DIFF MANUAL
[2017-02-27] MEDS ORDERED: FUROSEMIDE 20 MG/2 ML VIAL IV PUSH ONE (10:30)
[2017-02-27] MEDS ORDERED: POTASSIUM CHLORIDE 25 MEQ EFFERVESCENT TAB PO ONE (12:00)
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
[2017-02-27] MEDS: LEVOFLOXACIN 750 MG PREMIX INJ 150 ML IV SCH (14:30)
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
[2017-02-27] MEDS ORDERED: oxyCODONE HCL ORAL CONC 20 MG/ML SYRINGE PO PRN (17:15)
[2017-02-27] MEDS ORDERED: MORPHINE SULFATE 4 MG/ML INJ IV PUSH PRN (17:15)
[2017-02-27] MEDS: oxyCODONE HCL ORAL CONC 20 MG/ML SYRINGE PO SCH ×2 (17:34→23:04)
[2017-02-27] MEDS: PANTOPRAZOLE SODIUM 40 MG VIAL IVP SCH (17:35)
[2017-02-27] MEDS: guaiFENesin SOLUTION 200 MG/10 ML CUP OG-TUBE SCH ×2 (18:16→23:04)
[2017-02-27] MEDS: RESP: ACETYLCYSTEINE 10% 30 ML NEB NEB SCH (22:00)
[2017-02-28] VITALS (21 sets, daily range): BP systolic 126–173; BP diastolic 72–93; PULSE 98–127; RESP 17–27; TEMP 99.7–101.1; O2SAT 93–100
[2017-02-28] MEDS: PROPOFOL 1000 MG/100 ML INJ 100 ML IV SCH ×4 (00:55→21:22)
[2017-02-28] MEDS: RESP: ACETYLCYSTEINE 10% 30 ML NEB NEB SCH ×3 (03:20→16:03)
[2017-02-28] MEDS: RESP: ALBUTEROL 2.5 MG/IPRATROPIUM 0.5 MG NEB (SCH) NEB ×4 (03:20→21:55)
[2017-02-28] MEDS: CHLORHEXIDINE GLUCONATE 2 % 1 PACK (2 CLOTHS) TOP SCH (04:00)
[2017-02-28] MEDS: CEFEPIME INJ 2,000 MG in SODIUM CHLORIDE 0.9% INJ 100 ML IV SCH ×3 (05:14→22:31)
[2017-02-28] MEDS: METOCLOPRAMIDE HCL 10 MG/2 ML VIAL IV PUSH SCH ×3 (05:14→22:31)
[2017-02-28] MEDS: oxyCODONE HCL ORAL CONC 20 MG/ML SYRINGE PO SCH ×3 (05:15→18:00)
[2017-02-28] MEDS: guaiFENesin SOLUTION 200 MG/10 ML CUP OG-TUBE SCH ×3 (05:15→16:57)
[2017-02-28 05:54] LABS: AUTOMATED NEUTROPHIL # 20.8 TH/MM3 (1.8-7.7); BASOPHIL # 0.1 TH/MM3 (0-0.2); BASOPHIL % 0.5 % (0.0-2.0); EOSINOPHIL # 1.6 TH/MM3 (0-0.4); LYMPH % 5.1 % (9.0-44.0); LYMPHOCYTE # 1.4 TH/MM3 (1.0-4.8); MEAN CELL VOLUME 89.1 FL (80.0-100.0); MEAN CORPUSCULAR HEMOGLOBIN 30.5 PG (27.0-34.0); MEAN CORPUSCULAR HGB CONC 34.2 % (32.0-36.0); MONO % 11.8 % (0.0-8.0); NEUT % 76.6 % (16.0-70.0); PLATELET COUNT 311 TH/MM3 (150-450); RED BLOOD COUNT 3.02 MIL/MM3 (4.50-5.90); RED CELL DISTRIBUTION WIDTH 13.3 % (11.6-17.2)
[2017-02-28 06:02] LABS: HEMO FLAGS AUTO DIFF
[2017-02-28 06:09] LABS: BLOOD GAS BASE EXCESS 2.4 mmol/L (-2-2); BLOOD GAS HCO3 26 mmol/L (22-26); BLOOD GAS METHEMOGLOBIN 1.2 % (0-2); BLOOD GAS O2 HGB SATURATION 90 % (90-100); BLOOD GAS OXYGEN CONTENT 12.8 Vol % (12.0-20.0); BLOOD GAS PCO2 41 mmHg (38-42); BLOOD GAS PO2 64 mmHg (61-120); BLOOD GAS TOTAL HGB 10.1 G/DL (12.0-16.0); CRITICAL VALUE NO; DRAW SITE RT RADIAL; FIO2 60 %; OXYGEN DEVICE VENTILATOR; TEMP CORR TO 98.6; VENT SETTINGS AC/14/600/PEEP10
[2017-02-28 06:10] LABS: NUMBER OF ARTERIAL PUNCTURES 1; STAT NO; ULNAR PULSE PRESENT
[2017-02-28 06:34] LABS: ALKALINE PHOSPHATASE 223 U/L (45-117); ALT (GPT) 51 U/L (9-52); ANION GAP 7 MEQ/L (5-15); AST (GOT) 50 U/L (15-39); BICARBONATE 29.2 MEQ/L (21.0-32.0); BLOOD UREA NITROGEN 13 MG/DL (7-18); CHLORIDE 109 MEQ/L (98-107); GLOMERULAR FILTRATION RATE 190 ML/MIN (>89); POTASSIUM 3.6 MEQ/L (3.5-5.1); SODIUM (NA) 145 MEQ/L (136-145); TOTAL BILIRUBIN ADULT 0.7 MG/DL (0.2-1.0)
[2017-02-28] MEDS: ACETAMINOPHEN 1000 MG/100 ML VIAL IV PRN (07:30)
[2017-02-28] MEDS ORDERED: PHARMACY ORDERED LAB ONE (07:45)
[2017-02-28 07:48] LABS: BANDS 16 % (0-6); EOSINOPHILS 5 % (0-4); METAMYELOCYTES 6 % (0-1); MYELOCYTES 5 % (0-0); NEUTROPHIL # MANUAL DIFF 23.2 TH/MM3 (1.8-7.7); POLYS (SEG NEUTROPHILS) 59 % (16-70); WBC DIFF SAMPLE 100
[2017-02-28 07:49] LABS: DOHLE BODIES PRESENT (NONE SEEN)
[2017-02-28 07:50] LABS: PLATELET ESTIMATE SMEAR NORMAL (NORMAL); PLATELET MORPHOLOGY NORMAL (NORMAL); SCAN/DIFF FINAL DIFF MANUAL; TOXIC GRANULATION 1+ (NORMAL)
--- NOTE | 2017-02-28 07:54 | RADRPT ---
EXAM DATE/TIME: 02/28/2017 07:05 [facility] COMPARISON: No previous studies available for comparison. INDICATIONS : Evaluate lung status. MEDICAL HISTORY : None. SURGICAL HISTORY : None. ENCOUNTER: Initial ACUITY: 1 day PAIN SCORE: Non-responsive. LOCATION: Bilateral chest FINDINGS: A single view of the chest demonstrates endotracheal tube in satisfactory position. Nasogastric tube enters stomach. Right central line in superior vena cava. Bilateral mostly basilar airspace consolida tion increasing from February 27. CONCLUSION: 1. Worsening airspace disease bilaterally since February 27. The support apparatus unchanged. Kale Rojas MD on February 28, 2017 at 7:50 Board Certified Radiologist. This report was verified electronically.
[2017-02-28] MEDS: metroNIDAZOLE 500 MG INJ 100 ML IV SCH ×2 (07:55→16:57)
[2017-02-28] MEDS: BACITRACIN TOP OINT 15 GM TUBE TOP SCH (07:56)
[2017-02-28] MEDS: LACTULOSE SYRUP 20 GM/30 ML CUP PO SCH (07:56)
[2017-02-28] MEDS: levETIRAcetam INJ 500 MG in SODIUM CHLORIDE 0.9% INJ 100 ML IV SCH (07:56)
[2017-02-28] MEDS: CHLORHEXIDINE 0.12% (ORAL KIT) 15 ML CUP MT SCH (07:56)
[2017-02-28] MEDS: MUPIROCIN 2% OINT 1 APPLIC/GM SYR NASAL SCH ×2 (07:56→22:32)
[2017-02-28] MEDS: DOCUSATE SODIUM 100 MG CAP PO SCH ×2 (07:56→22:32)
[2017-02-28] MEDS: VANCOMYCIN INJ 1,500 MG in SODIUM CHLORID 0.9% 500 ML INJ 500 ML IV SCH (08:00)
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
[2017-02-28] MEDS ORDERED: MICAFUNGIN INJ 100 MG in SODIUM CHLORIDE 0.9% INJ 100 ML IV ONE (13:00)
[2017-02-28 13:12] LABS: BACTERIA, URINE OCC /hpf; BLOOD, URINE NEG (NEG); GLUCOSE,URINE NEG (NEG); KETONE, URINE NEG (NEG); MUCUS URINE FEW /lpf (OCC); NITRITE,URINE NEG (NEG); URINE COLOR YELLOW (YELLW/STRAW)
[2017-02-28 13:13] LABS: COMMENT (UR) CATH-CULTURE IND; CULTURE IF INDICATED CATH CULTURE IND
[2017-02-28] MEDS ORDERED: MIDAZOLAM HCL 2 MG/2 ML VIAL IV PUSH ONE (13:30)
[2017-02-28] MEDS: fentaNYL DRIP 250 ML IV SCH ×2 (13:34→22:31)
[2017-02-28] MEDS ORDERED: MIDAZOLAM HCL 5 MG/5 ML VIAL IV PUSH SCH (14:00)
[2017-02-28] MEDS ORDERED: ROCURONIUM INJ 50 MG/5 ML VIAL ONE ×4 (14:14→20:39)
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
[2017-02-28] MEDS ORDERED: IOHEXOL 350 MG/ML 10 ML VIAL (for RAD DIAG) IV ONE (14:45)
--- NOTE | 2017-02-28 14:50 | RADRPT ---
EXAM DATE/TIME: 02/28/2017 14:16 [facility] COMPARISON: CT BRAIN W/O CONTRAST, February 22, 2017, 5:08. INDICATIONS : Previous trauma alert,follow up hemorage. RADIATION DOSE: 65.11 CTDIvol (mGy) MEDICAL HISTORY : None SURGICAL HISTORY : None. ENCOUNTER: Subsequent ACUITY: 1 week PAIN SCALE: Non-responsive LOCATION: Bilateral cranial TECHNIQUE: Multiple contiguous axial images were obtained of the head. Using automated exposure control and adj ustment of the mA and/or kV according to patient size, radiation dose was kept as low as reasonably a chievable to obtain optimal diagnostic quality images. FINDINGS: Previously noted left subdural hematoma is again not identified. The punctate parenchymal contusions in the right temporoparietal mid to high convexities are less evident and resolving. There is hypoden sity noted in the region of left frontal lobe parenchymal contusion consistent with evolving changes. No intercurrent intra-axial or axial hemorrhage. Ventricles are normal in size without evidence for hydrocephalus. Brainstem and cerebellum are unremarkable. There has been interval removal of anterior frontal monitoring device. Interval development of paranasal mucosal thickening and fluid involving nearly all paranasal sinuses. CONCLUSION: 1. Resolution of left subdural hematoma. 2. Evolving intracranial hemorrhages in the right temporoparietal and left frontal lobes. No intercur rent hemorrhage. 3. Interval development of paranasal sinusitis. Serafin Mix MD on February 28, 2017 at 14:41 Board Certified Radiologist. This report was verified electronically.
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
[2017-02-28] MEDS ORDERED: VANCOMYCIN INJ 1,750 MG in SODIUM CHLORID 0.9% 500 ML INJ 500 ML IV SCH (16:00)
--- NOTE | 2017-02-28 16:11 | PD.PROCEDR ---
Procedure Note Procedure DATE: 02/28/17 CENTRAL LINE PLACEMENT: Left internal vein. INDICATION: Central venous access CONSENT Informed consent for procedure was obtained from patient's mother after discussion of risks, benefits, alternatives. Signed consent is on the chart. DESCRIPTION OF THE PROCEDURE The patient was placed in supine position, Trendelenburg. The skin was cleansed with Chloraprep x3. Additional barrier precautions included large sterile drape, sterile gloves, sterile gown, face mask, and hat. 1 % lidocaine was used for local anesthesia. Under direct ultrasound guidance and on single attempt, the vein was accessed with an introducer needle. The guide wire was advanced and confirmed venous position by u/s. The tract was dilated. Using Seldinger technique a 7 Yoruba 20 cm antimicrobial coated triple-lumen catheter was advanced to a depth of 18 centimeters. The guide wire was removed. All ports had good return of dark venous blood and flushed easily with saline. The central line was secured with 2.0 silk. A sterile dressing with antibiotic disc was applied. ESTIMATED BLOOD LOSS: Minimal COMPLICATIONS: No apparent complications. STAT chest x-ray is pending. Chey Marx MD Feb 28, 2017 16:11
--- NOTE | 2017-02-28 16:53 | RADRPT ---
EXAM DATE/TIME: 02/28/2017 16:15 [facility] COMPARISON: CHEST SINGLE AP, February 28, 2017, 7:05. INDICATIONS : Central line placement. MEDICAL HISTORY : None. SURGICAL HISTORY : None. ENCOUNTER: Subsequent ACUITY: 2 weeks PAIN SCORE: 0/10 LOCATION: Bilateral chest FINDINGS: There is a stable ETT in place. Interval removal of right subclavian central line. Interval placement of left IJ central line with tip coiled in the brachiocephalic vein region. Redemonstration of diffu se bilateral, right greater left, patchy airspace opacities. Probable small right pleural effusion. C ardiomediastinal contours are within normal limits. Remainder of exam is unchanged. CONCLUSION: 1. Left IJ central line is coiled likely in the brachiocephalic vein. No pneumothorax. 2. No significant interval change with continued bilateral, right greater than left, patchy airspace opacities consistent with diffuse infection versus ARDS. Serafin Mix MD on February 28, 2017 at 16:45 Board Certified Radiologist. This report was verified electronically.
[2017-02-28] MEDS: LINEZOLID 600 MG PREMIX 300 ML IV SCH (16:57)
[2017-02-28] MEDS: PANTOPRAZOLE SODIUM 40 MG VIAL IVP SCH (16:57)
--- NOTE | 2017-02-28 17:05 | RADRPT ---
EXAM DATE/TIME: 02/28/2017 14:22 [facility] COMPARISON: CT ABSCESS DRAINAGE AVINASH/RETRO, February 26, 2017, 17:31. CT ABDOMEN & PELVIS W CONTRAST, February 25, 2017, 23:44. INDICATIONS : Previous trauma alert. Post drainage. Fever. IV CONTRAST: 71 cc Omnipaque 350 (iohexol) IV ; Cumulative dose for multiple exams. ORAL CONTRAST: No oral contrast ingested. RADIATION DOSE: 19.01 CTDIvol (mGy) ; Combined studies MEDICAL HISTORY : None SURGICAL HISTORY : drainage done recently. ENCOUNTER: Initial ACUITY: 4 - 6 days PAIN SCALE: Non-responsive LOCATION: Bilateral abdomen TECHNIQUE: Volumetric scanning of the abdomen and pelvis was performed. Using automated exposure control and ad justment of the mA and/or kV according to patient size, radiation dose was kept as low as reasonably achievable to obtain optimal diagnostic quality images. FINDINGS: LOWER LUNGS: Please refer to chest CT report for description of the supradiaphragmatic findings. LIVER: Homogeneous density without lesion. There is no dilation of the biliary tree. No calcified gallston es. SPLEEN: Spleen demonstrates areas of non-enhancement likely representing infarct particular the superior aspe ct and combination of laceration. No significant perisplenic hematoma is present. The appearance has not significantly changed from the prior exam. PANCREAS: No acute finding is identified. KIDNEYS: Normal in size and shape. There is no mass, stone or hydronephrosis. ADRENAL GLANDS: There is a new left adrenal gland hyperdense mass measuring 4.1 x 2.5 cm. Right adrenal gland is with in normal limits. VASCULAR: There is no aortic aneurysm. No acute vascular abnormality is identified. BOWEL/MESENTERY: Nasogastric tube is looped in the stomach. Small bowel and colon demonstrate no acute finding. There is a moderate volume of free fluid in the abdomen and pelvis with layering hyperdense fluid in the in ferior pelvis. There is no free air visualized. ABDOMINAL WALL: There is anasarca. RETROPERITONEUM: There is no lymphadenopathy. BLADDER: Decompressed with Reyes catheter in place. REPRODUCTIVE: Within normal limits. INGUINAL: There is no lymphadenopathy or hernia. MUSCULOSKELETAL: No fracture or acute osseous abnormality is identified. CONCLUSION: 1. There is a new hyperdense left adrenal gland mass measuring approximately 4 cm. Although nonspecif ic this most likely represents interval adrenal gland hemorrhage. 2. The pigtail catheter is looped in the right lower quadrant. There is a moderate volume of free flu id in the abdomen and pelvis with layering hyperdense fluid in the pelvis likely related to a layerin g blood products. 3. Spleen demonstrates a stable appearance related to a combination of infarct and lacerations. 4. Anasarca. Dylan Don MD on February 28, 2017 at 16:57 Board Certified Radiologist. This report was verified electronically.
--- NOTE | 2017-02-28 17:09 | RADRPT ---
EXAM DATE/TIME: 02/28/2017 14:22 [facility] COMPARISON: CT ABDOMEN & PELVIS W CONTRAST, February 25, 2017, 23:44. CT THORAX W CONTRAST, February 21, 2017, 15:44. INDICATIONS : Previous trauma alert. Pneumonia. IV CONTRAST: 71 cc Omnipaque 350 (iohexol) IV ; Cumulative dose for multiple exams. RADIATION DOSE: 19.01 CTDIvol (mGy) ; Combined studies MEDICAL HISTORY : None SURGICAL HISTORY : None. ENCOUNTER: Initial ACUITY: 4 - 6 days PAIN SCALE: Non-responsive LOCATION: Bilateral chest TECHNIQUE: Volumetric scanning of the chest was performed. Using automated exposure control and adjustment of t he mA and/or kV according to patient size, radiation dose was kept as low as reasonably achievable to obtain optimal diagnostic quality images. FINDINGS: LUNGS: There is severe relatively diffuse airspace consolidation bilaterally, right greater than left. This is greater than what was appreciated on the prior CT examinations. There is also volume loss in the l ower lobes bilaterally, right greater than left. No pneumothorax is present. PLEURA: Small bilateral pleural effusions, left slightly larger than right. MEDIASTINUM: The heart and great vessels demonstrate no acute abnormality. There is no mediastinal or hilar lymph adenopathy. Endotracheal tube is present. There is nasogastric tube in the esophagus. Small pericardi al effusion is present. AXILLAE: Within normal limits. No lymphadenopathy. SKELETAL: No acute finding is identified. MISCELLANEOUS: Please refer to abdomen and pelvis CT report for description of the subdiaphragmatic findings. CONCLUSION: 1. Severe relatively diffuse airspace consolidation bilaterally, right greater than left along with l ower lobe volume loss bilaterally. These findings have increased from the prior studies. Although non specific this could be related to ARDS. 2. Small bilateral pleural effusions, left slightly larger than right. 3. Anasarca. Dylan Don MD on February 28, 2017 at 17:03 Board Certified Radiologist. This report was verified electronically.
[2017-02-28 17:25] LABS: BLOOD GAS BASE EXCESS 0.5 mmol/L (-2-2); BLOOD GAS CARBOXYHEMOGLOBIN 0.9 % (0-4); BLOOD GAS HCO3 25 mmol/L (22-26); BLOOD GAS METHEMOGLOBIN 0.9 % (0-2); BLOOD GAS O2 HGB SATURATION 98 % (90-100); BLOOD GAS OXYGEN CONTENT 12.8 Vol % (12.0-20.0); BLOOD GAS PCO2 39 mmHg (38-42); BLOOD GAS PO2 171 mmHG (61-120); BLOOD GAS TOTAL HGB 9.1 G/DL (12.0-16.0); CRITICAL VALUE NO; OXYGEN DEVICE VENTILATOR; TEMP CORR TO 98.6
[2017-02-28 17:26] LABS: DRAW SITE LT RADIAL; FIO2 100 %; NUMBER OF ARTERIAL PUNCTURES 1; STAT YES; ULNAR PULSE Y
[2017-02-28 17:30] LABS: VENT SETTINGS AC/VT500/R26/PEEP12
--- NOTE | 2017-02-28 21:18 | PD.PROCEDR ---
Procedure Note Procedure DATE: 02/28/17 PROCEDURE: Right femoral arterial catheter placement INDICATION: ARDS, need for ABG monitoring. DETAILS OF PROCEDURE RT and myself unsuccessful in placing radial art line. The patient was placed in supine position.. The skin was cleansed with Chloraprep x4. Additional barrier precautions included large sterile drape, sterile gloves, sterile gown, face mask, and hat. 1% lidocaine was used for local anesthesia. Under direct ultrasound guidnce and on the first attempt, the artery was accessed with an introducer needle. The guide wire was advanced. Using Seldinger technique 16 gauge arterial catheter was placed. The guide wire was removed. The catheter was connected to a transducer line and flushed with saline. The video monitor displayed normal arterial wave forms. The catheter was secured with 2-0 silk. A sterile dressing with antibiotic disc was applied. ESTIMATED BLOOD LOSS: minimal COMPLICATIONS: None Chey Marx MD Feb 28, 2017 21:18
--- NOTE | 2017-02-28 21:25 | PD.PROCEDR ---
Procedure Note Procedure DATE: 02/28/17 CENTRAL LINE PLACEMENT: Right internal jugular vein. INDICATION: Central venous access. The L IJ had been placed successfully ( though tip coiled back into brachiocephalic). RN was assisting with preparations to pull the line back and unintentionally left the central line without a dressing in place while attending to other issues including assisting with art line placement. Unfortunately patient had been moving head and drooling and I had significant concern for contamination of the line site. Therefore new CVL was placed. CONSENT Informed consent for procedure was obtained from mother after discussion of risks, benefits alternatives. Signed consent is on the chart. DESCRIPTION OF THE PROCEDURE The patient was placed in supine position, Trendelenburg. The skin was cleansed with Chloraprep x3. Additional barrier precautions included large sterile drape, sterile gloves, sterile gown, face mask, and hat. 1 % lidocaine was used for local anesthesia. Under direct ultrasound guidance and on single attempt, the vein was accessed with an introducer needle. The guide wire was advanced and the tract was dilated. Using Seldinger technique a 7 Urdu 20 cm antimicrobial coated triple-lumen catheter was advanced to a depth of 17 centimeters. The guide wire was removed. All ports had good return of dark venous blood and flushed easily with saline. The central line was secured with 2.0 silk. A sterile dressing with antibiotic disc was applied. ESTIMATED BLOOD LOSS: Minimal COMPLICATIONS: No apparent complications. STAT chest x-ray is pending. Chey Marx MD Feb 28, 2017 21:25
[2017-02-28] MEDS ORDERED: CISATRACURIUM BESYLATE 20 MG/10 ML VIAL IVP ONE (21:30)
[2017-02-28] MEDS ORDERED: FUROSEMIDE 20 MG/2 ML VIAL IV PUSH SCH (21:30)
[2017-02-28] MEDS ORDERED: CISATRACURIUM INJ 100 MG in SODIUM CHLOR 0.9% 250 ML INJ 240 ML IV SCH (21:30)
--- NOTE | 2017-02-28 22:09 | RADRPT ---
EXAM DATE/TIME: 02/28/2017 21:32 [facility] COMPARISON: CHEST SINGLE AP, February 28, 2017, 16:15. INDICATIONS : Central line placement. MEDICAL HISTORY : None. SURGICAL HISTORY : None. ENCOUNTER: Initial ACUITY: 1 day PAIN SCORE: Non-responsive. LOCATION: Bilateral chest FINDINGS: Portable AP view of the chest demonstrates a normal-sized cardiac silhouette. ETT, NG tube, and feedi ng tube are present. The NG tube and feeding tube course beyond the GE junction. Right IJ line tip is near the cavoatrial junction. Left IJ line remains looped in the region of the left brachiocephalic vein. There is relatively severe diffuse airspace consolidation bilaterally. No pneumothorax is seen. CONCLUSION: 1. The left IJ central line remains partially looped in the left brachiocephalic vein. 2. Stable severe bilateral airspace consolidation. Dylan Don MD on February 28, 2017 at 22:06 Board Certified Radiologist. This report was verified electronically.
--- NOTE | 2017-02-28 22:10 | RADRPT ---
EXAM DATE/TIME: 02/28/2017 21:39 [facility] COMPARISON: No previous studies available for comparison. INDICATIONS : Dobhoff placement. MEDICAL HISTORY : None. SURGICAL HISTORY : None. ENCOUNTER: Initial ACUITY: 1 day PAIN SCORE: Non-responsive. LOCATION: Bilateral abdomen. FINDINGS: Single view of the abdomen demonstrates feeding tube distal tip in the stomach. Nasogastric tube is l ooped in the proximal stomach with tip in the fundal region. There is airspace consolidation in the l ower lung zones. CONCLUSION: Feeding tube tip in the stomach. Dylan Don MD on February 28, 2017 at 22:07 Board Certified Radiologist. This report was verified electronically.
[2017-02-28] MEDS ORDERED: MIDAZOLAM HCL 2 MG/2 ML VIAL IV ONE (23:00)
[2017-02-28] MEDS ORDERED: MIDAZOLAM HCL 2 MG/2 ML VIAL IV PUSH PRN (23:00)
[2017-02-28] MEDS: MIDAZOLAM 100 MG/ML INJ 100 ML IV SCH (23:39)
[2017-03-01] VITALS (19 sets, daily range): BP systolic 103–178; BP diastolic 56–90; PULSE 102–118; RESP 26; TEMP 100–101.3; O2SAT 98–100
[2017-03-01] MEDS ORDERED: METOCLOPRAMIDE HCL 10 MG/2 ML VIAL IV PUSH SCH (01:00)
[2017-03-01] MEDS ORDERED: METOCLOPRAMIDE HCL 10 MG/2 ML VIAL IV PUSH ONE (01:45)
[2017-03-01] MEDS: metroNIDAZOLE 500 MG INJ 100 ML IV SCH ×4 (01:48→23:56)
[2017-03-01] MEDS: CHLORHEXIDINE 0.12% (ORAL KIT) 15 ML CUP MT SCH ×3 (02:01→21:47)
[2017-03-01] MEDS: BACITRACIN TOP OINT 15 GM TUBE TOP SCH ×3 (02:01→21:50)
[2017-03-01] MEDS: ACETAMINOPHEN 1000 MG/100 ML VIAL IV PRN ×2 (03:17→23:57)
[2017-03-01] MEDS: PROPOFOL 1000 MG/100 ML INJ 100 ML IV SCH ×7 (03:33→23:53)
[2017-03-01] MEDS: CHLORHEXIDINE GLUCONATE 2 % 1 PACK (2 CLOTHS) TOP SCH (04:00)
[2017-03-01] MEDS: RESP: ALBUTEROL 2.5 MG/IPRATROPIUM 0.5 MG NEB (SCH) NEB ×4 (05:04→20:19)
[2017-03-01] MEDS: oxyCODONE HCL ORAL CONC 20 MG/ML SYRINGE PO SCH ×6 (06:00→21:48)
[2017-03-01] MEDS: guaiFENesin SOLUTION 200 MG/10 ML CUP OG-TUBE SCH ×4 (06:00→17:14)
[2017-03-01] MEDS: fentaNYL DRIP 250 ML IV SCH ×3 (06:32→23:53)
[2017-03-01] MEDS: CEFEPIME INJ 2,000 MG in SODIUM CHLORIDE 0.9% INJ 100 ML IV SCH ×3 (06:32→21:49)
[2017-03-01] MEDS: LINEZOLID 600 MG PREMIX 300 ML IV SCH ×2 (06:32→17:13)
[2017-03-01 06:41] LABS: AUTOMATED NEUTROPHIL # 27.3 TH/MM3 (1.8-7.7); BASOPHIL # 0.1 TH/MM3 (0-0.2); BASOPHIL % 0.3 % (0.0-2.0); EOSINOPHIL # 1.6 TH/MM3 (0-0.4); EOSINOPHIL % 4.9 % (0.0-4.0); HEMATOCRIT 27.1 % (39.0-51.0); LYMPHOCYTE # 1.3 TH/MM3 (1.0-4.8); MEAN CELL VOLUME 89.7 FL (80.0-100.0); MEAN CORPUSCULAR HEMOGLOBIN 29.4 PG (27.0-34.0); MEAN CORPUSCULAR HGB CONC 32.8 % (32.0-36.0); MONO % 7.8 % (0.0-8.0); PLATELET COUNT 287 TH/MM3 (150-450); RED BLOOD COUNT 3.02 MIL/MM3 (4.50-5.90); RED CELL DISTRIBUTION WIDTH 13.2 % (11.6-17.2); WHITE BLOOD COUNT 32.8 TH/MM3 (4.0-11.0)
[2017-03-01 06:51] LABS: HEMO FLAGS AUTO DIFF
[2017-03-01 07:06] LABS: ALT (GPT) 39 U/L (9-52); ANION GAP 8 MEQ/L (5-15); AST (GOT) 47 U/L (15-39); BICARBONATE 30.2 MEQ/L (21.0-32.0); BLOOD UREA NITROGEN 15 MG/DL (7-18); CHLORIDE 104 MEQ/L (98-107); GLOMERULAR FILTRATION RATE 190 ML/MIN (>89); MAGNESIUM 2.1 MG/DL (1.5-2.5); POTASSIUM 3.4 MEQ/L (3.5-5.1); SODIUM (NA) 142 MEQ/L (136-145)
[2017-03-01 07:08] LABS: ALKALINE PHOSPHATASE 135 U/L (45-117); TOTAL BILIRUBIN ADULT 0.8 MG/DL (0.2-1.0)
[2017-03-01 07:14] LABS: BLOOD GAS BASE EXCESS 3.4 mmol/L (-2-2); BLOOD GAS CARBOXYHEMOGLOBIN 0.9 % (0-4); BLOOD GAS HCO3 27 mmol/L (22-26); BLOOD GAS METHEMOGLOBIN 1.3 % (0-2); BLOOD GAS O2 HGB SATURATION 97 % (90-100); BLOOD GAS OXYGEN CONTENT 12.8 Vol % (12.0-20.0); BLOOD GAS PCO2 39 mmHg (38-42); BLOOD GAS PO2 156 mmHg (61-120); BLOOD GAS TOTAL HGB 9.2 G/DL (12.0-16.0); CRITICAL VALUE NO; DRAW SITE ART LINE; FIO2 70 %; OXYGEN DEVICE VENTILATOR; STAT YES; TEMP CORR TO 98.6; VENT SETTINGS 500/26/+12
[2017-03-01] MEDS: QUEtiapine FUMARATE 100 MG TAB PO SCH ×3 (07:45→21:49)
[2017-03-01] MEDS ORDERED: DEXTROSE 50% IN WATER 50 ML VIAL(D50) IV PUSH PRN (07:45)
[2017-03-01] MEDS ORDERED: PHARMACY ORDERED LAB ONE (07:45)
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
[2017-03-01 07:58] LABS: BANDS 7 % (0-6); CORRECTED NUCLEATED RBC 2 /100 WBC (0-0); EOSINOPHILS 5 % (0-4); METAMYELOCYTES 1 % (0-1); MYELOCYTES 1 % (0-0); NEUTROPHIL # MANUAL DIFF 28.5 TH/MM3 (1.8-7.7); POLYS (SEG NEUTROPHILS) 78 % (16-70); WBC DIFF SAMPLE 100
[2017-03-01 07:59] LABS: PLATELET ESTIMATE SMEAR NORMAL (NORMAL); PLATELET MORPHOLOGY NORMAL (NORMAL); SCAN/DIFF FINAL DIFF MANUAL
[2017-03-01] MEDS: FUROSEMIDE 40 MG/4 ML VIAL IV PUSH SCH ×3 (08:00→21:47)
--- NOTE | 2017-03-01 08:00 | MP ---
cc: JUANA POLO MD DATE OF SURGERY 02/26/2017 PREOPERATIVE DIAGNOSES Opacification of right lower lobe. Atelectasis of the lung Massive secretions. POSTOPERATIVE DIAGNOSES Opacification of right lower lobe. Atelectasis of the lung Massive secretions. OPERATIVE PROCEDURE Bronchoscopy, washout and evacuation of secretions from both lungs. SURGEON MD Jordon ANESTHESIA Propofol from before. ESTIMATED BLOOD LOSS None. PROCEDURE The patient is prepped and draped in usual fashion. The bronchoscope is inserted after the patient is placed on 100% FIO2 and advanced into the trachea. In the trachea there are large, thick mucous plugs which are suctioned off and washed out. Then a bronchoscope is advanced to the bifurcatio, inserted and placed first in the right mainstem bronchus, advanced to the third generation arboration of the bronchi. This was washed out and a copious amount of mucous secretions obtained. The same is done with the left side. Once completed the bronchoscope was withdrawn. The patient was placed back on the respirator 100%. The patient tolerated the procedure well. Juana GARCIA/KASSY /6:37 PM /7:59 AM
[2017-03-01] MEDS: POLYETHYLENE GLYCOL 17 GM PKG PO SCH ×2 (08:13→21:49)
[2017-03-01] MEDS: DOCUSATE SODIUM 100 MG CAP PO SCH ×2 (08:13→21:47)
[2017-03-01] MEDS: METOCLOPRAMIDE HCL 10 MG/2 ML VIAL IV PUSH SCH ×2 (08:13→15:42)
[2017-03-01] MEDS: MUPIROCIN 2% OINT 1 APPLIC/GM SYR NASAL SCH ×2 (08:13→21:48)
[2017-03-01] MEDS: LACTULOSE SYRUP 20 GM/30 ML CUP PO SCH ×2 (08:13→21:48)
[2017-03-01] MEDS: BISACODYL 10 MG SUPP RECTAL SCH (08:14)
[2017-03-01] MEDS: POTASSIUM CHLOR 40 MEQ PREMIX 100 ML IV PRN ×2 (08:15→15:43)
--- NOTE | 2017-03-01 08:38 | RADRPT ---
EXAM DATE/TIME: 02/26/2017 17:31 [place] COMPARISON: No previous studies available for comparison. INDICATIONS : Pelvic hematoma status post splenic embolization. Possible abscess. DEVICE(S): 1.) 10 Fr Skater FLUID: Total volume of 700 cc of cloudy, red fluid was removed. Fluid was sent for laboratory ordered studies. MEDICAL HISTORY : None. SURGICAL HISTORY : None. ENCOUNTER: Initial ACUITY: 1 day PAIN SCORE: Non-responsive LOCATION: Bilateral abdomen PROCEDURE: 2.) EKG and oximetry remained stable throughout the procedure. PROCEDURE : 1. CT guided drainage of the pelvic fluid collection 2. Conscious sedation with continuous EKG and oximetry monitoring. The risks, benefits and alternatives to the procedure were explained and verbal and written consent w as obtained. Using automated exposure control and adjustment of the mA and/or kV according to patient size, radiation dose was kept as low as reasonably achievable to obtain optimal diagnostic quality i mages. The site was prepped in sterile fashion. Full sterile technique was used, including cap, ma sk, sterile gloves and gown and a large sterile sheet. Hand hygiene and 2% chlorhexidine and/or beta dine/alcohol prep was utilized per protocol for cutaneous antisepsis. The skin and subcutaneous tiss ues were infiltrated with local anesthetic solution. Under CT guidance 10-Spanish catheter was placed in the lower abdominal fluid collection. 700 cc of f luid removed. Catheter was left in good position. Fluid was sent for Gram stain and culture. Laureen ter can be removed if the fluid is not infected. The patient tolerated the procedure well and there were no complications. Conscious sedation was per formed with the prescribed dosages and duration as above in the presence of an independent trained ra diology nurse to assist in the monitoring of the patient. EKG and oximetry remained stable throughou t the procedure. The patient tolerated the procedure well and there were no complications. The patient was sent to pos t anesthesia recovery in stable condition. CONCLUSION: Uncomplicated CT guided drainage of pelvic fluid collection. Culture and Gram stain are pending. Ca theter can be removed if the fluid is not infected. Lincoln Kaiser MD FACR on March 01, 2017 at 8:34 Board Certified Radiologist. This report was verified electronically.
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
--- NOTE | 2017-03-01 11:55 | RADRPT ---
EXAM DATE/TIME: 03/01/2017 11:04 [facility] COMPARISON: CHEST SINGLE AP, February 28, 2017, 21:32. INDICATIONS : Short of breath. MEDICAL HISTORY : None. SURGICAL HISTORY : None. ENCOUNTER: Initial ACUITY: 1 week PAIN SCORE: Non-responsive. LOCATION: Bilateral chest FINDINGS: Stable ETT, NGT in the stomach, and nasoenteric feeding catheter with tip beyond the GE junction omit geeta from the image. Stable right IJ central line. Interval removal of left IJ central line. Improving , right greater then left, diffuse patchy airspace disease. Remainder of exam is unchanged. CONCLUSION: 1. Interval removal of left IJ central line. Remaining lines and tubes are stable, as above. 2. Improving bilateral, right greater then left, diffuse airspace disease. Serafin Mix MD on March 01, 2017 at 11:50 Board Certified Radiologist. This report was verified electronically.
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
[2017-03-01] MEDS: INSULIN NovoLIN REGULAR SUPPLEMENTAL SCALE SQ SCH ×2 (12:00→17:39)
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
--- NOTE | 2017-03-01 14:22 | ECHRPT ---
Indication: Shortness of breath CONCLUSIONS The left ventricular systolic function is mildly reduced with an estimated ejection fraction in the range of 45- 50%. Wall thickness is measured at the upper limits of normal. Normal left ventricular size. There is a small pericardial effusion present. BP: 155 / 92 HR: 118 Rhythm: Sinus MEASUREMENTS (Male / Female) Normal Values Technical Quality:Good 2D ECHO LV Diastolic Diameter PLAX 4.3 cm 4.2 - 5.9 / 3.9 - 5.3 cm LV Systolic Diameter PLAX 3.5 cm IVS Diastolic Thickness 1.1 cm 0.6 - 1.0 / 0.6 - 0.9 cm LVPW Diastolic Thickness 1.1 cm 0.6 - 1.0 / 0.6 - 0.9 cm LV Relative Wall Thickness 0.5 LVOT Diameter 2.0 cm M-MODE Aortic Root Diameter MM 3.4 cm LA Systolic Diameter MM 3.3 cm LA Ao Ratio MM 1.0 AV Cusp Separation MM 1.8 cm DOPPLER AV Peak Velocity 122.0 cm/s AV Peak Gradient 6.0 mmHg LVOT Peak Velocity 85.9 cm/s LVOT Peak Gradient 3.0 mmHg AV Area Cont Eq pk 2.2 cm Mitral E Point Velocity 109.0 cm/s Mitral A Point Velocity 80.5 cm/s Mitral E to A Ratio 1.4 LV E' Lateral Velocity 9.9 cm/s Mitral E to LV E' Lateral Ratio 11.0 LV E' Septal Velocity 8.8 cm/s Mitral E to LV E' Septal Ratio 12.4 TR Peak Velocity 191.0 cm/s TR Peak Gradient 14.6 mmHg PV Peak Velocity 118.0 cm/s PV Peak Gradient 5.6 mmHg FINDINGS LEFT VENTRICLE The left ventricular systolic function is mildly reduced with an estimated ejection fraction in the range of 45- 50%. Wall thickness is measured at the upper limits of normal. Normal left ventricular size. There is trace tricuspid valve regurgitation. The estimated pulmonary arterial pressure is 25 mmHg. There is a small pericardial effusion present. A small pleural effusion is noted. RIGHT VENTRICLE Normal right ventricular size and systolic function. LEFT ATRIUM The left atrial size is normal. RIGHT ATRIUM The right atrial size is normal. ATRIAL SEPTUM Normal atrial septal thickness without atrial level shunting by limited color doppler interrogation. AORTA The aortic root and proximal ascending aorta are normal in size on limited imaging. MITRAL VALVE Structurally normal mitral valve. No mitral valve stenosis or regurgitation. AORTIC VALVE Trileaflet aortic valve. No aortic valve stenosis or regurgitation. TRICUSPID VALVE Structurally normal tricuspid valve. There is trace tricuspid valve regurgitation. The estimated pulmonary arterial pressure is 25 mmHg. PULMONARY VALVE The pulmonary valve is not well visualized. VESSELS The inferior vena cava is normal in size. PERICARDIUM There is a small pericardial effusion present. A small pleural effusion is noted. Art Simpson MD (Electronically Signed) Final Date:01 March 2017 14:21
[2017-03-01] MEDS: MIDAZOLAM 100 MG/ML INJ 100 ML IV SCH ×2 (15:14→23:54)
[2017-03-01 15:20] LABS: BICARBONATE 32.9 MEQ/L (21.0-32.0); MAGNESIUM 2.2 MG/DL (1.5-2.5); POTASSIUM 3.4 MEQ/L (3.5-5.1)
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
[2017-03-01] MEDS: PANTOPRAZOLE SODIUM 40 MG VIAL IVP SCH (17:14)
[2017-03-01] MEDS ORDERED: ROCURONIUM INJ 50 MG/5 ML VIAL ONE ×2 (19:35→20:59)
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
--- NOTE | 2017-03-01 20:45 | RADRPT ---
EXAM DATE/TIME: 03/01/2017 20:03 [facility] COMPARISON: No previous studies available for comparison. INDICATIONS : ET tube placement, respiratory failure. MEDICAL HISTORY : None. SURGICAL HISTORY : None. ENCOUNTER: Initial ACUITY: 1 day PAIN SCORE: Non-responsive. LOCATION: Bilateral chest FINDINGS: Portable AP view of the chest demonstrates a normal-sized cardiac silhouette. Endotracheal tube is pr esent with tip near the thoracic inlet region and tip measures 9.4 cm from the soo. Nasogastric tu be and feeding tube course beyond the GE junction. Right IJ line tip is in the SVC. Multiple EKG line s overlie the patient. There is severe right upper lung zone and right midlung zone airspace consolid ation and mild left lower lung zone airspace consolidation. No pneumothorax is visualized. Bones and soft tissues demonstrate no acute finding. CONCLUSION: 1. Endotracheal tube tip measures approximately 9.4 cm from the soo. 2. Patchy bilateral airspace consolidation, right greater than left. Dylan Don MD on March 01, 2017 at 20:42 Board Certified Radiologist. This report was verified electronically.
--- NOTE | 2017-03-01 22:14 | RADRPT ---
EXAM DATE/TIME: 03/01/2017 21:45 [facility] COMPARISON: CHEST SINGLE AP, March 01, 2017, 20:03. INDICATIONS : Repositioning of ET tube. MEDICAL HISTORY : None. SURGICAL HISTORY : None. ENCOUNTER: Subsequent ACUITY: 1 day PAIN SCORE: Non-responsive. LOCATION: Bilateral chest FINDINGS: Portable AP view of the chest demonstrates a normal-sized cardiac silhouette. Endotracheal tube is at the aortic knob level it tip measuring 4.1 cm from the soo. Right IJ line distal tip remains in t he SVC. Nasogastric tube and feeding tube course beyond the GE junction. There is patchy bilateral ai rspace consolidation more severe in the right lung. No pneumothorax is present. CONCLUSION: 1. Endotracheal tube tip now measures approximately 4.1 cm from the soo. 2. Stable bilateral airspace consolidation, right greater than left. Dylan Don MD on March 01, 2017 at 22:10 Board Certified Radiologist. This report was verified electronically.
[2017-03-01] MEDS ORDERED: POTASSIUM CHLORIDE 25 MEQ EFFERVESCENT TAB OG-TUBE ONE (22:30)
[2017-03-02] VITALS (16 sets, daily range): BP systolic 88–153; BP diastolic 48–79; PULSE 114–130; RESP 26–29; TEMP 100–101.3; O2SAT 97–100
[2017-03-02] MEDS ORDERED: POTASSIUM CHLOR 20 MEQ PREMIX 100 ML IV ONE (01:30)
[2017-03-02] MEDS: METOCLOPRAMIDE HCL 10 MG/2 ML VIAL IV PUSH SCH ×3 (01:36→17:37)
[2017-03-02] MEDS: guaiFENesin SOLUTION 200 MG/10 ML CUP OG-TUBE SCH ×5 (01:40→23:09)
[2017-03-02] MEDS: oxyCODONE HCL ORAL CONC 20 MG/ML SYRINGE PO SCH ×6 (01:40→20:20)
[2017-03-02] MEDS ORDERED: LIDOCAINE VISCOUS 2% SOLN 15 ML UDC SWISH-SPIT ONE (03:45)
[2017-03-02] MEDS: RESP: ALBUTEROL 2.5 MG/IPRATROPIUM 0.5 MG NEB (SCH) NEB ×4 (03:46→22:29)
[2017-03-02] MEDS: CHLORHEXIDINE GLUCONATE 2 % 1 PACK (2 CLOTHS) TOP SCH (04:00)
[2017-03-02 05:16] LABS: BLOOD GAS BASE EXCESS 7.2 mmol/L (-2-2); BLOOD GAS HCO3 31 mmol/L (22-26); BLOOD GAS METHEMOGLOBIN 1.3 % (0-2); BLOOD GAS O2 HGB SATURATION 96 % (90-100); BLOOD GAS OXYGEN CONTENT 12.7 Vol % (12.0-20.0); BLOOD GAS PCO2 46 mmHg (38-42); BLOOD GAS PO2 123 mmHg (61-120); BLOOD GAS TOTAL HGB 9.2 G/DL (12.0-16.0); CRITICAL VALUE NO; OXYGEN DEVICE VENTILATOR; TEMP CORR TO 98.6
[2017-03-02 05:17] LABS: DRAW SITE ART LINE; FIO2 55 %; STAT NO; VENT SETTINGS AC/26/500/PEEP12
[2017-03-02] MEDS: CEFEPIME INJ 2,000 MG in SODIUM CHLORIDE 0.9% INJ 100 ML IV SCH ×3 (05:25→23:09)
[2017-03-02] MEDS: LINEZOLID 600 MG PREMIX 300 ML IV SCH ×2 (05:25→17:37)
[2017-03-02] MEDS: QUEtiapine FUMARATE 100 MG TAB PO SCH ×3 (05:27→23:09)
[2017-03-02 05:40] LABS: HEMATOCRIT 25.7 % (39.0-51.0); MEAN CELL VOLUME 88.3 FL (80.0-100.0); MEAN CORPUSCULAR HEMOGLOBIN 30.1 PG (27.0-34.0); PLATELET COUNT 372 TH/MM3 (150-450); RED BLOOD COUNT 2.91 MIL/MM3 (4.50-5.90); RED CELL DISTRIBUTION WIDTH 13.2 % (11.6-17.2); WHITE BLOOD COUNT 35.2 TH/MM3 (4.0-11.0)
[2017-03-02 05:46] LABS: HEMO FLAGS AUTO DIFF
[2017-03-02] MEDS: INSULIN NovoLIN REGULAR SUPPLEMENTAL SCALE SQ SCH ×4 (06:00→18:00)
[2017-03-02] MEDS: PROPOFOL 1000 MG/100 ML INJ 100 ML IV SCH ×4 (06:14→20:54)
[2017-03-02 06:19] LABS: BICARBONATE 32.4 MEQ/L (21.0-32.0); CALCIUM-PROTEIN CORRECTED 8.8 MG/DL (8.5-10.1); MAGNESIUM 2.1 MG/DL (1.5-2.5); POTASSIUM 3.6 MEQ/L (3.5-5.1); TOTAL BILIRUBIN ADULT 0.5 MG/DL (0.2-1.0)
[2017-03-02 07:59] LABS: BANDS 24 % (0-6); EOSINOPHILS 4 % (0-4); METAMYELOCYTES 2 % (0-1); MYELOCYTES 2 % (0-0); NEUTROPHIL # MANUAL DIFF 31.7 TH/MM3 (1.8-7.7); POLYS (SEG NEUTROPHILS) 62 % (16-70); WBC DIFF SAMPLE 100
[2017-03-02 08:00] LABS: PLATELET ESTIMATE SMEAR NORMAL (NORMAL); PLATELET MORPHOLOGY NORMAL (NORMAL); SCAN/DIFF FINAL DIFF MANUAL; TOXIC GRANULATION 2+ (NORMAL)
--- NOTE | 2017-03-02 08:14 | HHI.PR ---
Neuropsych Emotional Emotional: UnabletoAssess: Emotional, Anxious/Fearful, Depressed/Sad, Hostile/ Resentful, Irritable/Angry/Frustrate, Labile, Constricted/Blunted Behavior Behavior: Unable to Asses: Behavior, Coping/Acceptance, Cooperative w/ Treatment, Motivation, Frustration Tolerance/Cement, Impulsive/Agitated, Suicidal/ Homicidal Risk Cognitive Cognitive: Unable to Asses: Cognitive, Attention/Concentration, Confused/ Orientation, Insight/Awareness, Judgement/Problem-Solving, Memory Progress Notes/Response to Tx Contents of Sessions: Adjustment, Level of Consciousness Time with Patient: 15 minutes Premorbid psychological status Premorbid Cognitive, Emotional and Behavioral Status: Unable to Assess. Family was not present to discuss. Behavioral Reactions of Patient and Family/Support System: Unable to Assess. The patients family will likely experience ongoing issues of adjustment given the nature of the injury, and this aspect of recovery will require ongoing monitoring. Emotional/Behavioral Status of Patient and Family/Support System: Unable to Assess. Pertinent issues, if appropriate to this patients clinical care, are described in detail above. Maximizing acute care outcome It is recommended that the patient be monitored for emergent behavioral impulsivity as the medical condition evolves. This patients neuropathological challenges may limit their rehabilitation potential going forward, and these challenges will require specialized therapeutic skills to maximize outcome. Additionally, the patients family is experiencing ongoing issues of adjustment given the traumatic nature of the injury, and they may benefit from ongoing psychological assistance. Anticipated Problems Ongoing areas of concern will include behavioral impulsivity, lack of insight and judgment, which is expected to improve with time and treatment. Presently , the patient is intubated and sedated. Treatment Plan This clinician will continue to follow with you throughout the course of this patients acute care treatment, and I will be available to meet with the patient s family/support system to facilitate their understanding and the ongoing care of their family member. The goals of neuropsychological intervention shall be both educational and supportive to the family/support system as is deemed clinically appropriate. [facility] [place] Level: IV:Confused/Agitated-maximal assist Impression This patient sustained a severe traumatic brain injury with anticipated major neurocognitive disorder. Diagnosis: (1) Major neurocognitive disorder as late effect of traumatic brain injury without behavioral disturbance Status: Acute Progress Note Narrative Ongoing follow-up of patient seen during daily trauma rounds. This is day 9 post injury. The patient is in a prone bed. He has severe pulmonary dysfunction that is improving. His agitation is managed with Seroquel 100 q8H, per Dr. Lopez, with whom I discussed and agree with plan. The patient is considered a medicated [place] IV. We are monitoring him for agitation as his sedation is being weaned, and if necessary will address at that point. I will continue to follow. Tom Dunaway PhD Mar 02, 2017 8:14 am
[2017-03-02] MEDS: BISACODYL 10 MG SUPP RECTAL SCH (08:15)
--- NOTE | 2017-03-02 08:16 | RADRPT ---
EXAM DATE/TIME: 03/02/2017 07:20 [facility] COMPARISON: CHEST SINGLE AP, March 01, 2017, 21:45. INDICATIONS : Respiratory failure. MEDICAL HISTORY : None. SURGICAL HISTORY : None. ENCOUNTER: Initial ACUITY: 2 days PAIN SCORE: Non-responsive. LOCATION: Bilateral chest FINDINGS: A single view of the chest demonstrates bilateral patchy densities. Endotracheal tube, nasogastric tu be and feeding tube and right jugular central line are stable in position. Heart normal in size. No p neumothorax. Osseous structures are intact. CONCLUSION: 1. Patchy airspace disease. 2. Support lines and tubes are unchanged. Kahlil Moon MD on March 02, 2017 at 8:12 Board Certified Radiologist. This report was verified electronically.
[2017-03-02] MEDS: POLYETHYLENE GLYCOL 17 GM PKG PO SCH ×2 (08:32→20:23)
[2017-03-02] MEDS: metroNIDAZOLE 500 MG INJ 100 ML IV SCH ×2 (08:32→17:37)
[2017-03-02] MEDS: LACTULOSE SYRUP 20 GM/30 ML CUP PO SCH ×2 (08:32→20:23)
[2017-03-02] MEDS: MUPIROCIN 2% OINT 1 APPLIC/GM SYR NASAL SCH ×2 (08:33→20:20)
[2017-03-02] MEDS: BACITRACIN TOP OINT 15 GM TUBE TOP SCH ×2 (08:33→20:23)
[2017-03-02] MEDS: DOCUSATE SODIUM 100 MG CAP PO SCH ×2 (08:33→20:22)
[2017-03-02] MEDS: CHLORHEXIDINE 0.12% (ORAL KIT) 15 ML CUP MT SCH ×2 (08:33→20:21)
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
[2017-03-02] MEDS: fentaNYL DRIP 250 ML IV SCH ×2 (12:48→20:54)
[2017-03-02] MEDS: ACETAMINOPHEN 1000 MG/100 ML VIAL IV PRN ×2 (13:45→20:24)
--- NOTE | 2017-03-02 13:55 | HHI.IDPN ---
Subjective Subjective Remarks Improved Off Rotoprone bed on regular low grade fever WBC worsening to 35 K with extreme bandemia, 24 % Growing MRSA from sputum cl a blood clx negative Antibiotics cefepime zyvox flagyl Allergies: Coded Allergies: *MDRO Multi-Drug Resistant Organism (Verified Adverse Reaction, Unknown, ) MRSA PCR Screen POSITIVE 02/22/17 MRSA (bronc wash)-02/22/17 Objective . Vital Signs Date Time Temp Pulse Resp B/P Pulse Ox O2 Delivery O2 Flow Rate FiO2 03/02/17 12:00 45 03/02/17 12:00 124 03/02/17 12:00 100.0 124 27 133/75 100 03/02/17 10:00 119 03/02/17 09:33 26 03/02/17 08:00 121 03/02/17 08:00 45 03/02/17 08:00 100.3 124 28 97 109/59 03/02/17 07:30 97 45 03/02/17 07:00 Mechanical Ventilator 03/02/17 06:00 116 03/02/17 05:32 45 03/02/17 04:00 123 03/02/17 04:00 101.1 123 26 123/71 100 116/61 03/02/17 04:00 55 03/02/17 03:47 100 55 03/02/17 02:00 55 03/02/17 02:00 114 03/02/17 01:18 100 55 03/02/17 00:00 101.1 124 26 88/48 98 98/48 03/02/17 00:00 124 03/02/17 00:00 55 03/01/17 22:00 55 03/01/17 22:00 118 03/01/17 21:28 100 55 03/01/17 20:00 100.6 118 26 98 143/81 03/01/17 20:00 100 03/01/17 20:00 118 03/01/17 19:00 99 Mechanical Ventilator 45 03/01/17 18:00 109 03/01/17 17:40 98 45 03/01/17 16:00 107 03/01/17 16:00 45 03/01/17 16:00 100.4 104 26 100 109/63 03/01/17 14:00 105 03/01/17 03/01/17 03/02/17 15:00 23:00 07:00 Intake Total 1427 ml 1428 ml 1420 ml Output Total 3370 ml 2700 ml 650 ml Balance -1943 ml -1272 ml 770 ml Intake IV Total 1229 ml 1126 ml 949 ml Tube Feeding 38 ml 102 ml 271 ml Tube Irrigant 160 ml 200 ml 200 ml Output Urine Total 3250 ml 2600 ml 650 ml Stool Total 10 ml 100 ml 0 ml Gastric Drainage Total 100 ml 0 ml Drainage Total 10 ml 0 ml 0 ml . Laboratory Tests Test 03/01/17 03/02/17 04:50 05:15 White Blood Count 32.8 TH/MM3 35.2 TH/MM3 Red Blood Count 3.02 MIL/MM3 2.91 MIL/MM3 Hemoglobin 8.9 GM/DL 8.7 GM/DL Hematocrit 27.1 % 25.7 % Mean Corpuscular Volume 89.7 FL 88.3 FL Mean Corpuscular Hemoglobin 29.4 PG 30.1 PG Mean Corpuscular Hemoglobin 32.8 % 34.0 % Concent Red Cell Distribution Width 13.2 % 13.2 % Platelet Count 287 TH/MM3 372 TH/MM3 Mean Platelet Volume 8.5 FL 8.3 FL Neutrophils (%) (Auto) 83.0 % % Lymphocytes (%) (Auto) 4.0 % % Monocytes (%) (Auto) 7.8 % % Eosinophils (%) (Auto) 4.9 % % Basophils (%) (Auto) 0.3 % % Neutrophils # (Auto) 27.3 TH/MM3 TH/MM3 Lymphocytes # (Auto) 1.3 TH/MM3 TH/MM3 Monocytes # (Auto) 2.5 TH/MM3 TH/MM3 Eosinophils # (Auto) 1.6 TH/MM3 TH/MM3 Basophils # (Auto) 0.1 TH/MM3 TH/MM3 CBC Comment AUTO DIFF AUTO DIFF Differential Total Cells 100 100 Counted Neutrophils % (Manual) 78 % 62 % Band Neutrophils % 7 % 24 % Lymphocytes % 3 % 2 % Monocytes % 5 % 4 % Eosinophils % 5 % 4 % Neutrophils # (Manual) 28.5 TH/MM3 31.7 TH/MM3 Metamyelocytes 1 % 2 % Myelocytes 1 % 2 % Nucleated Red Blood Cells 2 /100 WBC Differential Comment FINAL DIFF FINAL DIFF MANUAL MANUAL Platelet Estimate NORMAL NORMAL Platelet Morphology Comment NORMAL NORMAL Red Cell Morphology Comment NORMAL NORMAL Toxic Granulation 2+ Laboratory Tests Test 03/01/17 03/01/17 03/02/17 03/02/17 04:50 14:20 00:20 05:15 Sodium Level 142 MEQ/L 141 MEQ/L 140 MEQ/L Potassium Level 3.4 MEQ/L 3.4 MEQ/L 3.6 MEQ/L 3.6 MEQ/L Chloride Level 104 MEQ/L 102 MEQ/L 102 MEQ/L Carbon Dioxide Level 30.2 MEQ/L 32.9 MEQ/L 32.4 MEQ/L Anion Gap 8 MEQ/L 6 MEQ/L 6 MEQ/L Blood Urea Nitrogen 15 MG/DL 17 MG/DL 19 MG/DL Creatinine 0.55 MG/DL 0.63 MG/DL 0.67 MG/DL Estimat Glomerular Filtration 190 ML/MIN 120 ML/MIN 151 ML/MIN Rate Random Glucose 73 MG/DL 85 MG/DL 103 MG/DL Calcium Level 7.5 MG/DL 8.0 MG/DL 7.4 MG/DL Phosphorus Level 3.3 MG/DL 2.8 MG/DL Magnesium Level 2.1 MG/DL 2.2 MG/DL 2.1 MG/DL Total Bilirubin 0.8 MG/DL 0.5 MG/DL Aspartate Amino Transf 47 U/L 54 U/L (AST/SGOT) Alanine Aminotransferase 39 U/L 38 U/L (ALT/SGPT) Alkaline Phosphatase 135 U/L 132 U/L Total Protein 4.8 GM/DL 4.7 GM/DL Albumin 1.7 GM/DL 1.7 GM/DL Protein Corrected Calcium 8.8 MG/DL Microbiology Date/Time Procedure Status Source Growth 02/28/17 12:00 Gram Stain - Final Resulted Sputum Endotracheal 02/28/17 12:00 Sputum Culture - Preliminary Resulted S. Aureus Mrsa 02/28/17 12:46 Urine Culture - Final Complete Urine Catheterized Urine NO GROWTH IN 48 HOURS. 02/28/17 23:24 Aerobic Blood Culture - Preliminary Resulted Blood Peripheral NO GROWTH IN 2 DAYS 02/28/17 23:24 Anaerobic Blood Culture - Preliminary Resulted Blood Peripheral NO GROWTH IN 2 DAYS 02/28/17 23:30 Aerobic Blood Culture - Preliminary Resulted Blood Peripheral NO GROWTH IN 2 DAYS 02/28/17 23:30 Anaerobic Blood Culture - Preliminary Resulted Blood Peripheral NO GROWTH IN 2 DAYS Imaging Last Impressions Chest X-Ray 03/02/17 0600 Signed Impressions: Service Date/Time: Thursday, March 02, 2017 07:20 - CONCLUSION: 1. Patchy airspace disease. 2. Support lines and tubes are unchanged. Kahlil Moon MD Abdomen X-Ray 03/01/17 1100 Signed Impressions: Service Date/Time: Wednesday, March 01, 2017 11:09 - CONCLUSION: 1. The tip of the patient's weighted feeding tube is at the level of the antrum/pylorus. Jose Ramon Kaiser MD Head CT 02/28/17 0000 Signed Impressions: Service Date/Time: Tuesday, February 28, 2017 14:16 - CONCLUSION: 1. Resolution of left subdural hematoma. 2. Evolving intracranial hemorrhages in the right temporoparietal and left frontal lobes. No intercurrent hemorrhage. 3. Interval development of paranasal sinusitis. Serafin Mix MD Chest CT 02/28/17 0000 Signed Impressions: Service Date/Time: Tuesday, February 28, 2017 14:22 - CONCLUSION: 1. Severe relatively diffuse airspace consolidation bilaterally, right greater than left along with lower lobe volume loss bilaterally. These findings have increased from the prior studies. Although nonspecific this could be related to ARDS. 2. Small bilateral pleural effusions, left slightly larger than right. 3. Anasarca. Dylan Don MD Abdomen/Pelvis CT 02/28/17 0000 Signed Impressions: Service Date/Time: Tuesday, February 28, 2017 14:22 - CONCLUSION: 1. There is a new hyperdense left adrenal gland mass measuring approximately 4 cm. Although nonspecific this most likely represents interval adrenal gland hemorrhage. 2. The pigtail catheter is looped in the right lower quadrant. There is a moderate volume of free fluid in the abdomen and pelvis with layering hyperdense fluid in the pelvis likely related to a layering blood products. 3. Spleen demonstrates a stable appearance related to a combination of infarct and lacerations. 4. Anasarca. Dylan Don MD Retroperitoneal Abscess Drainage 02/26/17 0000 Signed Impressions: Service Date/Time: Sunday, February 26, 2017 17:31 - CONCLUSION: Uncomplicated CT guided drainage of pelvic fluid collection. Culture and Gram stain are pending. Catheter can be removed if the fluid is not infected. Lincoln Kaiser MD FACR Pelvis X-Ray 02/21/17 1518 Signed Impressions: Service Date/Time: Tuesday, February 21, 2017 15:04 - CONCLUSION: Intact pelvis. Dylan Heck MD Maxillofacial CT 02/21/17 1518 Signed Impressions: Service Date/Time: Tuesday, February 21, 2017 15:36 - CONCLUSION: Comminuted fracture of the nose. The rest of the face is intact. Chronic-appearing sinus disease. Dylan Heck MD Cervical Spine CT 02/21/17 1518 Signed Impressions: Service Date/Time: Tuesday, February 21, 2017 15:36 - CONCLUSION: Intact cervical spine. Dylan Heck MD Splenic Arteriogram 02/21/17 0000 Signed Impressions: Service Date/Time: Tuesday, February 21, 2017 18:17 - CONCLUSION: 1. Selective angiography of the common hepatic artery shows no signs of hemorrhage involving the liver. 2. Selective splenic artery angiography showed no hemorrhage initially but followup angiograms did show hemorrhage within the inferior margin of the spleen. Successful embolization utilizing Gelfoam. Rao Santillan Jr., MD Lumbar Spine CT 02/21/17 0000 Signed Impressions: Service Date/Time: Tuesday, February 21, 2017 15:44 - CONCLUSION: 1. No acute fracture or subluxation in the lumbar spine. 2. Chronic L1 limbus vertebra. Dylan Heck MD Knee X-Ray 02/21/17 0000 Signed Impressions: Service Date/Time: Tuesday, February 21, 2017 15:04 - CONCLUSION: No evidence of knee fracture. Dylan Heck MD Physical Exam CONSTITUTIONAL/GENERAL: sedated intubated supine TUBES/LINES/DRAINS: SKIN: No jaundice, no rash EYES: non icteric CARDIOVASCULAR: Regular rate and rhythm; no murmurs,rubs or gallops RESPIRATORY/CHEST: Symmetric, respirations. Scattered rhonchi b/l to auscultation. Breath sounds equal bilaterally. No wheezes, rales, or rhonchi. GASTROINTESTINAL: soft no reaction to palpaption, moderately distended drain in place with serosang d/c GENITOURINARY Reyes catheter in place w clear yellow urine MUSCULOSKELETAL: Extremities without clubbing, cyanosis, or edema. NEUROLOGICAL: sedated heavily PSYCHIATRIC: unable to assess Assessment & Plan Remarks Multitrauma, including TBI, splenic lac Acute VDRF, doing poorly from resp standpoint , on 100% FiO2 - plan to start prone ventilation Aspiration PNA, prehospital growing H.flu and MRSA - also growing non cryptococcal yeast, no clin significance Splenic lac with hemorrrage sp drainage, no e/o infx Critically ill but more stable from resp stanpointimproving clincially Worsening leukocytosism, lekemoid reaction and bandemia REC's: cont cefpeime cont zyvox - cont flagyl - fu CBC chk stool for C.diff Discussed Condition With Jessica Singleton RN, Alexandra A. MD Mar 02, 2017 13:55
[2017-03-02] MEDS ORDERED: METOPROLOL TARTRATE 5 MG/5 ML VIAL ONE (17:20)
[2017-03-02] MEDS: PANTOPRAZOLE SODIUM 40 MG VIAL IVP SCH (17:37)
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
[2017-03-02] MEDS ORDERED: METOPROLOL TARTRATE 5 MG/5 ML VIAL IV PUSH ONE (18:30)
[2017-03-02 18:43] LABS: BICARBONATE 28.2 MEQ/L (21.0-32.0); POTASSIUM 3.7 MEQ/L (3.5-5.1)
[2017-03-02 18:58] LABS: CALCIUM-PROTEIN CORRECTED 8.3 MG/DL (8.5-10.1)
[2017-03-02] MEDS: METOPROLOL TARTRATE 5 MG/5 ML VIAL IV PUSH PRN (20:21)
[2017-03-03] VITALS (18 sets, daily range): BP systolic 136–144; BP diastolic 72–81; PULSE 97–128; RESP 24–27; TEMP 100.4–101.5; O2SAT 90–100
[2017-03-03] MEDS: PROPOFOL 1000 MG/100 ML INJ 100 ML IV SCH ×7 (00:22→23:29)
[2017-03-03] MEDS: METOCLOPRAMIDE HCL 10 MG/2 ML VIAL IV PUSH SCH ×3 (01:55→18:27)
[2017-03-03] MEDS: METOPROLOL TARTRATE 5 MG/5 ML VIAL IV PUSH PRN (01:55)
[2017-03-03] MEDS: oxyCODONE HCL ORAL CONC 20 MG/ML SYRINGE PO SCH ×6 (01:56→21:04)
[2017-03-03] MEDS: metroNIDAZOLE 500 MG INJ 100 ML IV SCH ×3 (01:57→14:57)
[2017-03-03] MEDS: RESP: ALBUTEROL 2.5 MG/IPRATROPIUM 0.5 MG NEB (SCH) NEB ×4 (03:56→20:55)
[2017-03-03] MEDS: CHLORHEXIDINE GLUCONATE 2 % 1 PACK (2 CLOTHS) TOP SCH (04:00)
[2017-03-03 05:17] LABS: HEMATOCRIT 25.8 % (39.0-51.0); MEAN CELL VOLUME 89.3 FL (80.0-100.0); MEAN CORPUSCULAR HEMOGLOBIN 29.8 PG (27.0-34.0); MEAN CORPUSCULAR HGB CONC 33.3 % (32.0-36.0); PLATELET COUNT 438 TH/MM3 (150-450); RED BLOOD COUNT 2.89 MIL/MM3 (4.50-5.90); RED CELL DISTRIBUTION WIDTH 13.3 % (11.6-17.2); REVIEW FLAG FINAL; WHITE BLOOD COUNT 41.9 TH/MM3 (4.0-11.0)
[2017-03-03 05:34] LABS: BLOOD GAS BASE EXCESS -0.4 mmol/L (-2-2); BLOOD GAS HCO3 24 mmol/L (22-26); BLOOD GAS METHEMOGLOBIN 1.2 % (0-2); BLOOD GAS O2 HGB SATURATION 97 % (90-100); BLOOD GAS PCO2 41 mmHg (38-42); BLOOD GAS PO2 144 mmHg (61-120); BLOOD GAS TOTAL HGB 8.6 G/DL (12.0-16.0); CRITICAL VALUE NO; OXYGEN DEVICE VENTILATOR; TEMP CORR TO 98.6
[2017-03-03 05:35] LABS: DRAW SITE ART LINE; FIO2 45 %; STAT NO; VENT SETTINGS PRVC/AC
--- NOTE | 2017-03-03 05:44 | RADRPT ---
EXAM DATE/TIME: 03/03/2017 04:18 [facility] COMPARISON: No previous studies available for comparison. INDICATIONS : Shortness of breath. MEDICAL HISTORY : None. SURGICAL HISTORY : None. ENCOUNTER: Subsequent ACUITY: 2 days PAIN SCORE: Non-responsive. LOCATION: Bilateral chest FINDINGS: Patchy air space opacities are seen of both lungs, fairly diffuse and right worse on left. No pleural effusion demonstrated. No pneumothorax. Normal heart size. Endotracheal tube tip is approximately 3 cm above the soo. There is a nasogastric tube coursing in to the stomach. A right internal jugular central venous catheters present with tip in the right atriu m. CONCLUSION: Diffusely scattered airspace opacities, right more than left. Dylan Heck MD on March 03, 2017 at 5:41 Board Certified Radiologist. This report was verified electronically.
[2017-03-03 05:52] LABS: BICARBONATE 24.2 MEQ/L (21.0-32.0); MAGNESIUM 2.2 MG/DL (1.5-2.5); POTASSIUM 3.7 MEQ/L (3.5-5.1)
[2017-03-03] MEDS: INSULIN NovoLIN REGULAR SUPPLEMENTAL SCALE SQ SCH ×4 (06:00→18:00)
[2017-03-03] MEDS: QUEtiapine FUMARATE 100 MG TAB PO SCH ×3 (06:07→21:05)
[2017-03-03 06:08] LABS: CALCIUM-PROTEIN CORRECTED 8.3 MG/DL (8.5-10.1)
[2017-03-03] MEDS: guaiFENesin SOLUTION 200 MG/10 ML CUP OG-TUBE SCH ×3 (06:08→18:26)
[2017-03-03] MEDS: CEFEPIME INJ 2,000 MG in SODIUM CHLORIDE 0.9% INJ 100 ML IV SCH ×3 (06:08→21:05)
[2017-03-03] MEDS: LINEZOLID 600 MG PREMIX 300 ML IV SCH ×2 (06:09→18:26)
[2017-03-03] MEDS: FUROSEMIDE 40 MG/4 ML VIAL IV PUSH SCH ×3 (07:33→21:04)
[2017-03-03] MEDS: CHLORHEXIDINE 0.12% (ORAL KIT) 15 ML CUP MT SCH ×2 (07:34→21:06)
[2017-03-03] MEDS: fentaNYL DRIP 250 ML IV SCH ×2 (07:34→14:57)
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
[2017-03-03] MEDS: MUPIROCIN 2% OINT 1 APPLIC/GM SYR NASAL SCH ×2 (08:32→21:04)
[2017-03-03] MEDS: POLYETHYLENE GLYCOL 17 GM PKG PO SCH ×2 (08:32→21:00)
[2017-03-03] MEDS: PROPRANOLOL HCL 20 MG TAB PO SCH ×3 (08:32→18:28)
[2017-03-03] MEDS: BACITRACIN TOP OINT 15 GM TUBE TOP SCH ×2 (08:33→21:05)
[2017-03-03] MEDS: NUTRISOURCE FIBER POWDER 1 PACK G-TUBE SCH ×2 (09:00→21:05)
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
[2017-03-03] MEDS: ENOXAPARIN SODIUM 40 MG/0.4 ML SYRINGE SQ SCH (13:24)
[2017-03-03] MEDS: ACETAMINOPHEN 1000 MG/100 ML VIAL IV PRN ×2 (15:09→23:21)
[2017-03-03] MEDS: PANTOPRAZOLE SODIUM 40 MG VIAL IVP SCH (18:28)
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
[2017-03-04] VITALS (21 sets, daily range): BP systolic 96–154; BP diastolic 50–104; PULSE 88–120; RESP 20–31; TEMP 99.7–101.8; O2SAT 94–100
[2017-03-04] MEDS: guaiFENesin SOLUTION 200 MG/10 ML CUP OG-TUBE SCH ×5 (00:06→23:14)
[2017-03-04] MEDS: metroNIDAZOLE 500 MG INJ 100 ML IV SCH ×4 (00:06→23:14)
[2017-03-04] MEDS: oxyCODONE HCL ORAL CONC 20 MG/ML SYRINGE PO SCH ×6 (00:07→21:02)
[2017-03-04] MEDS: METOCLOPRAMIDE HCL 10 MG/2 ML VIAL IV PUSH SCH ×3 (00:07→17:03)
[2017-03-04] MEDS: PROPRANOLOL HCL 20 MG TAB PO SCH ×6 (00:07→23:15)
[2017-03-04] MEDS: FUROSEMIDE 40 MG/4 ML VIAL IV PUSH SCH ×4 (02:06→21:01)
[2017-03-04] MEDS: PROPOFOL 1000 MG/100 ML INJ 100 ML IV SCH ×4 (02:06→21:06)
--- NOTE | 2017-03-04 03:29 | RADRPT ---
EXAM DATE/TIME: 03/04/2017 02:47 [facility] COMPARISON: CHEST SINGLE AP, March 03, 2017, 4:18. INDICATIONS : Short of breath. MEDICAL HISTORY : None. SURGICAL HISTORY : None. ENCOUNTER: Subsequent ACUITY: 2 weeks PAIN SCORE: Non-responsive. LOCATION: Bilateral chest FINDINGS: Patchy air space opacities again seen diffusely of both lungs, right slightly more so the left. No la rge effusion demonstrated. No pneumothorax. Heart size stable, within normal limits. Endotracheal tube tip is approximately 4 cm above the soo. There is a feeding tube coursing into t he stomach. Right internal jugular central venous catheter again seen, tip at the atriocaval junction . CONCLUSION: No significant change. Extensive patchy airspace opacities persist. Dylan Heck MD on March 04, 2017 at 3:27 Board Certified Radiologist. This report was verified electronically.
[2017-03-04] MEDS: RESP: ALBUTEROL 2.5 MG/IPRATROPIUM 0.5 MG NEB (SCH) NEB ×4 (03:30→19:58)
[2017-03-04] MEDS: CHLORHEXIDINE GLUCONATE 2 % 1 PACK (2 CLOTHS) TOP SCH (04:00)
[2017-03-04 04:01] LABS: AUTOMATED NEUTROPHIL # 38.8 TH/MM3 (1.8-7.7); BASOPHIL # 0.3 TH/MM3 (0-0.2); BASOPHIL % 0.6 % (0.0-2.0); EOSINOPHIL # 1.5 TH/MM3 (0-0.4); EOSINOPHIL % 3.3 % (0.0-4.0); HEMATOCRIT 30.1 % (39.0-51.0); LYMPH % 4.4 % (9.0-44.0); MEAN CELL VOLUME 87.8 FL (80.0-100.0); MEAN CORPUSCULAR HEMOGLOBIN 29.3 PG (27.0-34.0); MEAN CORPUSCULAR HGB CONC 33.4 % (32.0-36.0); MONO % 7.5 % (0.0-8.0); NEUT % 84.2 % (16.0-70.0); PLATELET COUNT 563 TH/MM3 (150-450); RED BLOOD COUNT 3.43 MIL/MM3 (4.50-5.90); RED CELL DISTRIBUTION WIDTH 13.1 % (11.6-17.2)
[2017-03-04 04:02] LABS: HEMO FLAGS AUTO DIFF
[2017-03-04 04:16] LABS: ALT (GPT) 44 U/L (9-52); ANION GAP 6 MEQ/L (5-15); AST (GOT) 59 U/L (15-39); BICARBONATE 31.9 MEQ/L (21.0-32.0); BLOOD UREA NITROGEN 18 MG/DL (7-18); CHLORIDE 100 MEQ/L (98-107); GLOMERULAR FILTRATION RATE 169 ML/MIN (>89); POTASSIUM 3.7 MEQ/L (3.5-5.1); SODIUM (NA) 138 MEQ/L (136-145)
[2017-03-04 04:22] LABS: ALKALINE PHOSPHATASE 168 U/L (45-117); TOTAL BILIRUBIN ADULT 0.6 MG/DL (0.2-1.0)
[2017-03-04] MEDS: LINEZOLID 600 MG PREMIX 300 ML IV SCH ×2 (05:11→17:53)
[2017-03-04] MEDS: QUEtiapine FUMARATE 100 MG TAB PO SCH ×3 (05:12→21:01)
[2017-03-04] MEDS: CEFEPIME INJ 2,000 MG in SODIUM CHLORIDE 0.9% INJ 100 ML IV SCH ×4 (05:12→21:01)
[2017-03-04 05:49] LABS: BANDS 5 % (0-6); EOSINOPHILS 1 % (0-4); MYELOCYTES 3 % (0-0); NEUTROPHIL # MANUAL DIFF 40.9 TH/MM3 (1.8-7.7); POLYS (SEG NEUTROPHILS) 81 % (16-70); WBC DIFF SAMPLE 100
[2017-03-04 05:50] LABS: SCAN/DIFF FINAL DIFF MANUAL
[2017-03-04 05:51] LABS: PLATELET ESTIMATE SMEAR HIGH (NORMAL); PLATELET MORPHOLOGY NORMAL (NORMAL)
[2017-03-04] MEDS: INSULIN NovoLIN REGULAR SUPPLEMENTAL SCALE SQ SCH ×5 (06:00→23:39)
[2017-03-04] MEDS: fentaNYL DRIP 250 ML IV SCH (06:17)
[2017-03-04 06:26] LABS: BLOOD GAS BASE EXCESS 5.4 mmol/L (-2-2); BLOOD GAS CARBOXYHEMOGLOBIN 1.4 % (0-4); BLOOD GAS HCO3 29 mmol/L (22-26); BLOOD GAS METHEMOGLOBIN 1.3 % (0-2); BLOOD GAS O2 HGB SATURATION 90 % (90-100); BLOOD GAS OXYGEN CONTENT 11.9 Vol % (12.0-20.0); BLOOD GAS PCO2 44 mmHg (38-42); BLOOD GAS PO2 64 mmHg (61-120); BLOOD GAS TOTAL HGB 9.4 G/DL (12.0-16.0); CRITICAL VALUE NO; DRAW SITE RT RADIAL; FIO2 40 %; NUMBER OF ARTERIAL PUNCTURES 1; OXYGEN DEVICE VENTILATOR; TEMP CORR TO 98.6; VENT SETTINGS AC/18/500/PEEP10
[2017-03-04 06:27] LABS: STAT NO; ULNAR PULSE PRESENT
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
[2017-03-04] MEDS: POLYETHYLENE GLYCOL 17 GM PKG PO SCH ×2 (08:38→21:01)
[2017-03-04] MEDS: BACITRACIN TOP OINT 15 GM TUBE TOP SCH ×2 (09:00→21:02)
[2017-03-04] MEDS: MUPIROCIN 2% OINT 1 APPLIC/GM SYR NASAL SCH ×2 (09:00→21:01)
[2017-03-04] MEDS: CHLORHEXIDINE 0.12% (ORAL KIT) 15 ML CUP MT SCH ×2 (09:12→21:02)
[2017-03-04] MEDS: NUTRISOURCE FIBER POWDER 1 PACK G-TUBE SCH ×2 (09:13→21:02)
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
[2017-03-04] MEDS: ACETAMINOPHEN 1000 MG/100 ML VIAL IV PRN ×2 (10:28→21:00)
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
[2017-03-04] MEDS ORDERED: IOHEXOL 350 MG/ML 10 ML VIAL (for RAD DIAG) IV ONE (11:24)
--- NOTE | 2017-03-04 11:43 | RADRPT ---
EXAM DATE/TIME: 03/04/2017 10:57 [facility] COMPARISON: CT THORAX W CONTRAST, March 04, 2017, 10:56. INDICATIONS : Increasing white clood count concern for persistant abscess. IV CONTRAST: 85 cc Omnipaque 350 (iohexol) IV ; Cumulative dose for multiple exams. ORAL CONTRAST: No oral contrast ingested. RADIATION DOSE: 5.1 CTDIvol (mGy) ; Combined studies - Thorax/Abdomen/Pelvis MEDICAL HISTORY : None SURGICAL HISTORY : None. ENCOUNTER: Initial ACUITY: 1 day PAIN SCALE: Non-responsive LOCATION: Abdomen TECHNIQUE: Volumetric scanning of the abdomen and pelvis was performed. Using automated exposure control and ad justment of the mA and/or kV according to patient size, radiation dose was kept as low as reasonably achievable to obtain optimal diagnostic quality images. FINDINGS: Imaging through the lung bases demonstrates extensive bilateral infiltrates with pleural effusions co ncerning for pneumonia. The appearance of the liver is within normal limits. The examination demonstrates extensive splenic c ontusion. There is no evidence of gas within the fluid collection within the splenic capsule. The pancreas, right adrenal gland and kidneys are normal in appearance. There is enlargement of the left adrenal gland with decreased attenuation suggesting adrenal hemorrha ge/contusion. The visualized loops of small and large bowel are unremarkable. No free intraperitoneal air or locula geeta collections of fluid are seen within the abdomen. There is a drainage catheter in the right lower quadrant. There is no significant fluid around the catheter. There is very minimal free fluid within the pelvis. There is a rectal tube in deposition. There is arterial line in on the right. There is a Reyes catheter within the bladder. The visualized osseous structures demonstrate a Schmorl's node in the inferior endplate of L1. The os seous structures are otherwise grossly intact. CONCLUSION: 1. There are extensive bilateral pulmonary infiltrates concerning for a pneumonia. 2. No significant intra-abdominal fluid identified. There is a small bore drainage catheter in the ri ght lower quadrant. There is a small amount of free fluid in the dependent portion of the pelvis. The re is no evidence of gas within this. 3. Large splenic contusion without evidence of active bleeding. 4. Dobbhoff tube within the distal stomach. Jose Ramon Kaiser MD on March 04, 2017 at 11:35 Board Certified Radiologist. This report was verified electronically.
--- NOTE | 2017-03-04 11:45 | RADRPT ---
EXAM DATE/TIME: 03/04/2017 10:56 [facility] COMPARISON: CT THORAX W CONTRAST, February 28, 2017, 14:22. INDICATIONS : Evaluate pneumona. IV CONTRAST: 85 cc Omnipaque 350 (iohexol) IV ; Cumulative dose for multiple exams. RADIATION DOSE: 5.1 CTDIvol (mGy) ; Combined studies - Thorax/Abdomen/Pelvis MEDICAL HISTORY : None SURGICAL HISTORY : None. ENCOUNTER: Initial ACUITY: 1 day PAIN SCALE: Non-responsive LOCATION: chest TECHNIQUE: Volumetric scanning of the chest was performed. Using automated exposure control and adjustment of t he mA and/or kV according to patient size, radiation dose was kept as low as reasonably achievable to obtain optimal diagnostic quality images. FINDINGS: Patient is intubated. There is a right IJ central line in good position. Feeding type nasoenteric cat heter with tip in the mid body of the stomach. There has been significant interval improvement of previously noted diffuse bilateral airspace consol idation with residual patchy airspace consolidation noted bilaterally. This appears somewhat nodular on the current examination. Mildly improved small left and trace right pleural effusions which appear simple in fluid density. Subcentimeter mediastinal nodes are likely reactive or infectious in etiolo gy. Heart and great vessels are grossly unremarkable without significant pericardial effusion. The visualized portions of the upper abdomen again demonstrate diffusely abnormal splenic enhancement consistent with splenic infarction. There is Redemonstration of left adrenal mass which again demons trates heterogeneous density. CONCLUSION: 1. Significant interval improvement in diffuse bilateral airspace consolidation with residual patchy airspace disease which appears slightly more nodular. Differential considerations include resolving a spiration and improving ARDS versus improving diffuse infection. 2. Mildly improved small left and trace right simple appearing pleural effusions. 3. Visualized portions of the upper abdomen demonstrate significant continued abnormal splenic enhanc ement consistent with splenic infarction and heterogeneous left adrenal mass consistent with possible adrenal hemorrhage. Serafin Mix MD on March 04, 2017 at 11:33 Board Certified Radiologist. This report was verified electronically.
[2017-03-04 12:24] LABS: C. DIFF EPI 027 PRESUMPTIVE NEGATIVE (NEGATIVE); C. DIFF TOXIN PCR NEGATIVE (NEGATIVE)
[2017-03-04] MEDS ORDERED: LACTATED RINGER'S 1000 ML INJ 2,000 ML IV ONE (12:41)
[2017-03-04] MEDS ORDERED: PHENYLEPH/NS 1000 MCG/10 ML SYR IV ONE (12:41)
[2017-03-04] MEDS ORDERED: VECURONIUM BROMIDE 20 MG VIAL IV ONE (12:41)
[2017-03-04] MEDS: ENOXAPARIN SODIUM 40 MG/0.4 ML SYRINGE SQ SCH (12:51)
[2017-03-04] MEDS ORDERED: BUPIVACAINE/EPINEPHRINE 0.5% PF 30 ML VIAL ONE (14:10)
[2017-03-04] MEDS ORDERED: ceFAZolin INJ 1,000 MG VIAL ONE (14:11)
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
[2017-03-04 15:50] LABS: BLOOD GAS BASE EXCESS -0.6 mmol/L (-2-2); BLOOD GAS CARBOXYHEMOGLOBIN 1.3 % (0-4); BLOOD GAS HCO3 26 mmol/L (22-26); BLOOD GAS METHEMOGLOBIN 1.6 % (0-2); BLOOD GAS O2 HGB SATURATION 94 % (90-100); BLOOD GAS OXYGEN CONTENT 13.7 Vol % (12.0-20.0); BLOOD GAS PCO2 60 mmHg (38-42); BLOOD GAS PO2 108 mmHg (61-120); BLOOD GAS TOTAL HGB 10.3 G/DL (12.0-16.0); TEMP CORR TO 98.6
[2017-03-04 15:51] LABS: CRITICAL VALUE YES; OXYGEN DEVICE UNKNOWN-O.R.; VENT SETTINGS UNKNOWN-O.R.
[2017-03-04 15:52] LABS: DRAW SITE UNKNOWN-O.R.; STAT NO
[2017-03-04] MEDS ORDERED: MIDAZOLAM HCL 2 MG/2 ML VIAL ONE (16:36)
[2017-03-04] MEDS ORDERED: fentaNYL CITRATE 250 MCG/5 ML AMP ONE (16:36)
[2017-03-04] MEDS: PANTOPRAZOLE SODIUM 40 MG VIAL IVP SCH (17:03)
--- NOTE | 2017-03-04 19:44 | HHI.IDPN ---
Subjective Subjective Remarks cont to have fevers and worsening leukocytosi, leukemoid reaction Pt has CT that showed severe PNA and large splenic contusio ()pt is sp splenic artery embolisation) pt went for emergent splenectomy to remove the necrotic tissue post embolisation of splenic artery Antibiotics cefepime zyvox flagyl Allergies: Coded Allergies: *MDRO Multi-Drug Resistant Organism (Verified Adverse Reaction, Unknown, ) MRSA PCR Screen POSITIVE 02/22/17 MRSA (bronc wash)-02/22/17 Objective . Vital Signs Date Time Temp Pulse Resp B/P Pulse Ox O2 Delivery O2 Flow Rate FiO2 03/04/17 18:00 102 03/04/17 16:31 95 40 03/04/17 16:00 40 03/04/17 16:00 101 03/04/17 16:00 99.7 88 21 96/50 100 03/04/17 14:20 99 100 03/04/17 14:00 115 03/04/17 12:00 40 03/04/17 12:00 100.8 110 28 102/82 96 03/04/17 12:00 111 03/04/17 11:52 95 40 03/04/17 11:18 99 100 03/04/17 10:00 112 03/04/17 10:00 40 03/04/17 08:44 40 03/04/17 08:44 99 40 03/04/17 08:00 50 03/04/17 08:00 100.4 98 20 116/86 100 03/04/17 08:00 98 03/04/17 06:15 98 50 03/04/17 06:00 106 03/04/17 04:00 101.8 120 30 134/70 94 03/04/17 04:00 45 03/04/17 04:00 120 03/04/17 03:45 97 40 03/04/17 02:00 98 03/04/17 01:07 24 03/04/17 00:00 100.4 106 31 126/104 98 03/04/17 00:00 106 03/04/17 00:00 45 03/03/17 22:00 110 03/03/17 21:00 100 40 03/03/17 20:00 102 03/03/17 20:00 101.3 102 24 142/76 99 6/21/17 20:00 45 03/03/17 03/03/17 03/04/17 15:00 23:00 07:00 Intake Total 1090 ml 1831 ml 1400 ml Output Total 4750 ml 2800 ml 2025 ml Balance -3660 ml -969 ml -625 ml Intake IV Total 990 ml 1131 ml 852 ml Tube Feeding 460 ml 428 ml Tube Irrigant 100 ml Other 240 ml 120 ml Output Urine Total 4650 ml 2700 ml 1925 ml Stool Total 100 ml 100 ml 100 ml Drainage Total 0 ml 0 ml 0 ml . Laboratory Tests Test 03/03/17 03/04/17 05:00 03:45 White Blood Count 41.9 TH/MM3 46.0 TH/MM3 Red Blood Count 2.89 MIL/MM3 3.43 MIL/MM3 Hemoglobin 8.6 GM/DL 10.0 GM/DL Hematocrit 25.8 % 30.1 % Mean Corpuscular Volume 89.3 FL 87.8 FL Mean Corpuscular Hemoglobin 29.8 PG 29.3 PG Mean Corpuscular Hemoglobin 33.3 % 33.4 % Concent Red Cell Distribution Width 13.3 % 13.1 % Platelet Count 438 TH/MM3 563 TH/MM3 Mean Platelet Volume 7.6 FL 7.6 FL Neutrophils (%) (Auto) 84.2 % Lymphocytes (%) (Auto) 4.4 % Monocytes (%) (Auto) 7.5 % Eosinophils (%) (Auto) 3.3 % Basophils (%) (Auto) 0.6 % Neutrophils # (Auto) 38.8 TH/MM3 Lymphocytes # (Auto) 2.0 TH/MM3 Monocytes # (Auto) 3.4 TH/MM3 Eosinophils # (Auto) 1.5 TH/MM3 Basophils # (Auto) 0.3 TH/MM3 CBC Comment AUTO DIFF Differential Total Cells 100 Counted Neutrophils % (Manual) 81 % Band Neutrophils % 5 % Lymphocytes % 4 % Monocytes % 6 % Eosinophils % 1 % Neutrophils # (Manual) 40.9 TH/MM3 Myelocytes 3 % Differential Comment FINAL DIFF MANUAL Platelet Estimate HIGH Platelet Morphology Comment NORMAL Red Cell Morphology Comment NORMAL Laboratory Tests Test 03/03/17 03/04/17 05:00 03:45 Sodium Level 142 MEQ/L 138 MEQ/L Potassium Level 3.7 MEQ/L 3.7 MEQ/L Chloride Level 108 MEQ/L 100 MEQ/L Carbon Dioxide Level 24.2 MEQ/L 31.9 MEQ/L Anion Gap 10 MEQ/L 6 MEQ/L Blood Urea Nitrogen 18 MG/DL 18 MG/DL Creatinine 0.57 MG/DL 0.61 MG/DL Estimat Glomerular Filtration 182 ML/MIN 169 ML/MIN Rate Random Glucose 114 MG/DL 114 MG/DL Calcium Level 7.1 MG/DL 8.0 MG/DL Protein Corrected Calcium 8.3 MG/DL Magnesium Level 2.2 MG/DL 2.0 MG/DL Total Protein 4.9 GM/DL 6.0 GM/DL Phosphorus Level 2.6 MG/DL Total Bilirubin 0.6 MG/DL Aspartate Amino Transf 59 U/L (AST/SGOT) Alanine Aminotransferase 44 U/L (ALT/SGPT) Alkaline Phosphatase 168 U/L Albumin 2.1 GM/DL Microbiology Date/Time Procedure Status Source Growth 03/03/17 20:25 Aerobic Blood Culture - Preliminary Resulted Blood Peripheral NO GROWTH IN 1 DAY 03/03/17 20:25 Anaerobic Blood Culture - Preliminary Resulted Blood Peripheral NO GROWTH IN 1 DAY 03/03/17 20:30 Aerobic Blood Culture - Preliminary Resulted Blood Peripheral NO GROWTH IN 1 DAY 03/03/17 20:30 Anaerobic Blood Culture - Preliminary Resulted Blood Peripheral NO GROWTH IN 1 DAY 03/04/17 00:00 Gram Stain Received Wound Other Pending 03/04/17 00:00 Wound Culture Received Wound Other Pending 03/04/17 00:00 Acid Fast Stain Received Wound Other Pending 03/04/17 00:00 Mycobacterial Culture Received Wound Other Pending 03/04/17 00:00 Fungal Smear Received Wound Other Pending 03/04/17 00:00 Fungal Culture Received Wound Other Pending Imaging Last Impressions Chest X-Ray 03/04/17 0600 Signed Impressions: Service Date/Time: February 02:47 - CONCLUSION: No significant change. Extensive patchy airspace opacities persist. Dylan Heck MD Chest CT 03/04/17 0000 Signed Impressions: Service Date/Time: February 10:56 - CONCLUSION: 1. Significant interval improvement in diffuse bilateral airspace consolidation with residual patchy airspace disease which appears slightly more nodular. Differential considerations include resolving aspiration and improving ARDS versus improving diffuse infection. 2. Mildly improved small left and trace right simple appearing pleural effusions. 3. Visualized portions of the upper abdomen demonstrate significant continued abnormal splenic enhancement consistent with splenic infarction and heterogeneous left adrenal mass consistent with possible adrenal hemorrhage. Serafin Mix MD Abdomen/Pelvis CT 03/04/17 0000 Signed Impressions: Service Date/Time: February 10:57 - CONCLUSION: 1. There are extensive bilateral pulmonary infiltrates concerning for a pneumonia. 2. No significant intra-abdominal fluid identified. There is a small bore drainage catheter in the right lower quadrant. There is a small amount of free fluid in the dependent portion of the pelvis. There is no evidence of gas within this. 3. Large splenic contusion without evidence of active bleeding. 4. Dobbhoff tube within the distal stomach. Jose Ramon Kaiser MD Abdomen X-Ray 03/01/17 1100 Signed Impressions: Service Date/Time: Wednesday, March 01, 2017 11:09 - CONCLUSION: 1. The tip of the patient's weighted feeding tube is at the level of the antrum/pylorus. Jose Ramon Kaiser MD Head CT 02/28/17 0000 Signed Impressions: Service Date/Time: Tuesday, February 28, 2017 14:16 - CONCLUSION: 1. Resolution of left subdural hematoma. 2. Evolving intracranial hemorrhages in the right temporoparietal and left frontal lobes. No intercurrent hemorrhage. 3. Interval development of paranasal sinusitis. Serafin Mix MD Retroperitoneal Abscess Drainage 02/26/17 0000 Signed Impressions: Service Date/Time: Sunday, February 26, 2017 17:31 - CONCLUSION: Uncomplicated CT guided drainage of pelvic fluid collection. Culture and Gram stain are pending. Catheter can be removed if the fluid is not infected. Lincoln Kaiser MD FACR Pelvis X-Ray 02/21/17 1518 Signed Impressions: Service Date/Time: Tuesday, February 21, 2017 15:04 - CONCLUSION: Intact pelvis. Dylan Heck MD Maxillofacial CT 02/21/17 1518 Signed Impressions: Service Date/Time: Tuesday, February 21, 2017 15:36 - CONCLUSION: Comminuted fracture of the nose. The rest of the face is intact. Chronic-appearing sinus disease. Dylan Heck MD Cervical Spine CT 02/21/17 1518 Signed Impressions: Service Date/Time: Tuesday, February 21, 2017 15:36 - CONCLUSION: Intact cervical spine. Dylan Heck MD Splenic Arteriogram 02/21/17 0000 Signed Impressions: Service Date/Time: Tuesday, February 21, 2017 18:17 - CONCLUSION: 1. Selective angiography of the common hepatic artery shows no signs of hemorrhage involving the liver. 2. Selective splenic artery angiography showed no hemorrhage initially but followup angiograms did show hemorrhage within the inferior margin of the spleen. Successful embolization utilizing Gelfoam. Rao Santillan Jr., MD Lumbar Spine CT 02/21/17 0000 Signed Impressions: Service Date/Time: Tuesday, February 21, 2017 15:44 - CONCLUSION: 1. No acute fracture or subluxation in the lumbar spine. 2. Chronic L1 limbus vertebra. Dylan Heck MD Knee X-Ray 02/21/17 0000 Signed Impressions: Service Date/Time: Tuesday, February 21, 2017 15:04 - CONCLUSION: No evidence of knee fracture. Dylan Heck MD Physical Exam CONSTITUTIONAL/GENERAL: sedated intubated NAD TUBES/LINES/DRAINS: SKIN: No jaundice, no rash EYES: non icteric CARDIOVASCULAR: Regular rate and rhythm; no murmurs,rubs or gallops RESPIRATORY/CHEST: Symmetric, respirations. Scattered rhonchi b/l to auscultation. GASTROINTESTINAL: soft no reaction to palpaption, mildly distended post op dressing in place medial laparotomy MARY drain in place GENITOURINARY Reyes catheter in place w clear yellow urine MUSCULOSKELETAL: Extremities without clubbing, cyanosis, or edema. NEUROLOGICAL: sedated heavily PSYCHIATRIC: unable to assess Assessment & Plan Remarks Multitrauma, including TBI, splenic lac Acute VDRF, doing poorly from resp standpoint , on 100% FiO2 - plan to start prone ventilation Aspiration PNA, prehospital - growing H.flu and MRSA - also growing yeast, - no clin significance Splenic lac with hemorrrage sp drainage, no e/o infx - sp embolisation of spelinc artery on admission, now sp splenectomy Clinically improving, stable Leukocytosis, leukemoid reaction ? nectotic tissue from embolised spleen HIgh fever: ? line, ?persistent PNA, ?related to spleen lac and accumulated blood products in abdominal cavity?: all abouve can be contributing REC's: cont cefpeime cont zyvox - cont flagyl -fu repeat BC - fu intraabd fluid clx - fu WBC, fu clinically - If clinically deteriorating and persistent fever/leukocytosis will repeat CT abd/pev Pt will need to be vaccinated > 2 wks from splenectomy a dose of PCV13 , followed by PPSV23 at least eight weeks later. Hib vaccine if previously unvaccinated - meningococcal vaccine Discussed Condition With Dr Jessica diego RN dw family @ b/s Ayana Ulloa MD Mar 04, 2017 19:44
[2017-03-04] MEDS ORDERED: PILL SPLITTER OTHER PRN (20:15)
[2017-03-05] VITALS (18 sets, daily range): BP systolic 106–140; BP diastolic 54–88; PULSE 92–112; RESP 16–28; TEMP 99.1–101.6; O2SAT 97–100
[2017-03-05] MEDS: PROPOFOL 1000 MG/100 ML INJ 100 ML IV SCH ×6 (00:49→16:06)
[2017-03-05] MEDS: FUROSEMIDE 40 MG/4 ML VIAL IV PUSH SCH ×4 (00:50→20:56)
[2017-03-05] MEDS: fentaNYL DRIP 250 ML IV SCH ×3 (01:20→20:03)
[2017-03-05] MEDS: ACETAMINOPHEN 1000 MG/100 ML VIAL IV PRN ×2 (03:03→16:27)
[2017-03-05] MEDS: RESP: ALBUTEROL 2.5 MG/IPRATROPIUM 0.5 MG NEB (SCH) NEB ×4 (03:13→21:06)
[2017-03-05] MEDS: CHLORHEXIDINE GLUCONATE 2 % 1 PACK (2 CLOTHS) TOP SCH (04:00)
[2017-03-05] MEDS: CEFEPIME INJ 2,000 MG in SODIUM CHLORIDE 0.9% INJ 100 ML IV SCH ×3 (05:02→20:58)
[2017-03-05] MEDS: PROPRANOLOL HCL 20 MG TAB PO SCH ×2 (05:03→11:15)
[2017-03-05] MEDS: QUEtiapine FUMARATE 100 MG TAB PO SCH (05:03)
[2017-03-05] MEDS: guaiFENesin SOLUTION 200 MG/10 ML CUP OG-TUBE SCH ×3 (05:03→18:14)
[2017-03-05] MEDS: oxyCODONE HCL ORAL CONC 20 MG/ML SYRINGE PO SCH ×6 (05:03→20:57)
[2017-03-05] MEDS: LINEZOLID 600 MG PREMIX 300 ML IV SCH ×2 (05:03→18:14)
[2017-03-05 05:17] LABS: AUTOMATED NEUTROPHIL # 36.3 TH/MM3 (1.8-7.7); BASOPHIL # 0.3 TH/MM3 (0-0.2); BASOPHIL % 0.6 % (0.0-2.0); EOSINOPHIL # 0.9 TH/MM3 (0-0.4); EOSINOPHIL % 2.1 % (0.0-4.0); HEMATOCRIT 27.4 % (39.0-51.0); LYMPH % 4.4 % (9.0-44.0); LYMPHOCYTE # 1.9 TH/MM3 (1.0-4.8); MEAN CELL VOLUME 87.6 FL (80.0-100.0); MEAN CORPUSCULAR HEMOGLOBIN 29.1 PG (27.0-34.0); MEAN CORPUSCULAR HGB CONC 33.2 % (32.0-36.0); MONO % 9.6 % (0.0-8.0); NEUT % 83.3 % (16.0-70.0); PLATELET COUNT 581 TH/MM3 (150-450); RED BLOOD COUNT 3.13 MIL/MM3 (4.50-5.90); RED CELL DISTRIBUTION WIDTH 12.8 % (11.6-17.2); WHITE BLOOD COUNT 43.6 TH/MM3 (4.0-11.0)
[2017-03-05 05:24] LABS: HEMO FLAGS AUTO DIFF
[2017-03-05 05:31] LABS: ANION GAP 8 MEQ/L (5-15); AST (GOT) 76 U/L (15-39); BICARBONATE 27.4 MEQ/L (21.0-32.0); BLOOD UREA NITROGEN 19 MG/DL (7-18); CHLORIDE 99 MEQ/L (98-107); GLOMERULAR FILTRATION RATE 172 ML/MIN (>89); MAGNESIUM 1.9 MG/DL (1.5-2.5); POTASSIUM 3.3 MEQ/L (3.5-5.1); SODIUM (NA) 134 MEQ/L (136-145)
[2017-03-05 05:31] LABS: BLOOD GAS BASE EXCESS 1.8 mmol/L (-2-2); BLOOD GAS CARBOXYHEMOGLOBIN 1.4 % (0-4); BLOOD GAS HCO3 26 mmol/L (22-26); BLOOD GAS METHEMOGLOBIN 1.2 % (0-2); BLOOD GAS O2 HGB SATURATION 91 % (90-100); BLOOD GAS OXYGEN CONTENT 11.4 Vol % (12.0-20.0); BLOOD GAS PCO2 40 mmHg (38-42); BLOOD GAS PO2 67 mmHg (61-120); BLOOD GAS TOTAL HGB 8.9 G/DL (12.0-16.0); CRITICAL VALUE NO; DRAW SITE ALINE; FIO2 40 %; OXYGEN DEVICE VENTILATOR; STAT NO; TEMP CORR TO 98.6; VENT SETTINGS AC/18/500/PEEP8
[2017-03-05 05:34] LABS: ALKALINE PHOSPHATASE 163 U/L (45-117); ALT (GPT) 56 U/L (9-52); TOTAL BILIRUBIN ADULT 0.5 MG/DL (0.2-1.0)
[2017-03-05] MEDS: INSULIN NovoLIN REGULAR SUPPLEMENTAL SCALE SQ SCH ×3 (06:00→18:00)
--- NOTE | 2017-03-05 06:24 | RADRPT ---
EXAM DATE/TIME: 03/05/2017 04:10 [facility] COMPARISON: CHEST SINGLE AP, March 04, 2017, 2:47. INDICATIONS : Shortness of breath. MEDICAL HISTORY : None. SURGICAL HISTORY : None. ENCOUNTER: Subsequent ACUITY: 2 weeks PAIN SCORE: Non-responsive. LOCATION: chest FINDINGS: A single view of the chest demonstrates patchy diffuse bilateral airspace disease greater in the righ t upper lobe. Heart normal in size. Endotracheal tube, nasogastric tube and right jugular central shayy e are stable in position.. Osseous structures are intact. CONCLUSION: Bilateral patchy airspace disease. Kahlil Moon MD on March 05, 2017 at 6:21 Board Certified Radiologist. This report was verified electronically.
[2017-03-05] MEDS: POTASSIUM CHLOR 40 MEQ PREMIX 100 ML IV PRN (06:25)
[2017-03-05 07:36] LABS: BANDS 6 % (0-6); EOSINOPHILS 1 % (0-4); METAMYELOCYTES 1 % (0-1); NEUTROPHIL # MANUAL DIFF 38.4 TH/MM3 (1.8-7.7); PLASMA CELLS 1 % (0-0); POLYS (SEG NEUTROPHILS) 81 % (16-70); WBC DIFF SAMPLE 100
[2017-03-05 07:37] LABS: PLATELET ESTIMATE SMEAR HIGH (NORMAL); PLATELET MORPHOLOGY NORMAL (NORMAL); SCAN/DIFF FINAL DIFF MANUAL
[2017-03-05 07:38] LABS: POLYCHROMASIA 2.1 % (0.0-1.9)
[2017-03-05] MEDS: CHLORHEXIDINE 0.12% (ORAL KIT) 15 ML CUP MT SCH ×2 (08:00→20:00)
--- NOTE | 2017-03-05 08:08 | HHI.PR ---
Neuropsych Emotional Emotional: UnabletoAssess: Emotional, Anxious/Fearful, Depressed/Sad, Hostile/ Resentful, Irritable/Angry/Frustrate, Labile, Constricted/Blunted Behavior Behavior: Unable to Asses: Behavior, Coping/Acceptance, Cooperative w/ Treatment, Motivation, Frustration Tolerance/[place], Impulsive/Agitated, Suicidal/ Homicidal Risk Cognitive Cognitive: Unable to Asses: Cognitive, Attention/Concentration, Confused/ Orientation, Insight/Awareness, Judgement/Problem-Solving, Memory Psychosocial Psychosocial: Intact: Psychosocial, Family/Other Adjustment, Realistic Expectation, Unable to Asses: Self-Esteem/Confidence Progress Notes/Response to Tx Time with Patient: 15 minutes Premorbid psychological status Premorbid Cognitive, Emotional and Behavioral Status: Unable to Assess. Family was not present to discuss. Behavioral Reactions of Patient and Family/Support System: Unable to Assess. The patients family will likely experience ongoing issues of adjustment given the nature of the injury, and this aspect of recovery will require ongoing monitoring. Emotional/Behavioral Status of Patient and Family/Support System: Unable to Assess. Pertinent issues, if appropriate to this patients clinical care, are described in detail above. Maximizing acute care outcome It is recommended that the patient be monitored for emergent behavioral impulsivity as the medical condition evolves. This patients neuropathological challenges may limit their rehabilitation potential going forward, and these challenges will require specialized therapeutic skills to maximize outcome. Additionally, the patients family is experiencing ongoing issues of adjustment given the traumatic nature of the injury, and they may benefit from ongoing psychological assistance. Anticipated Problems Ongoing areas of concern will include behavioral impulsivity, lack of insight and judgment, which is expected to improve with time and treatment. Presently , the patient is intubated and sedated. Treatment Plan This clinician will continue to follow with you throughout the course of this patients acute care treatment, and I will be available to meet with the patient s family/support system to facilitate their understanding and the ongoing care of their family member. The goals of neuropsychological intervention shall be both educational and supportive to the family/support system as is deemed clinically appropriate. [place] Level: IV:Confused/Agitated-maximal assist Impression This patient sustained a severe traumatic brain injury with anticipated major neurocognitive disorder. Diagnosis: (1) Major neurocognitive disorder as late effect of traumatic brain injury without behavioral disturbance Status: Acute Progress Note Narrative Ongoing follow-up of patient seen during daily trauma rounds. This is day 12 post injury. The patient has a significantly elevated white count, and trauma team consensus is that the source is the spleen, and he underwent splenectomy. Dr. Lopez placed patient on Seroquel 100 q8H and increased Propranolol to 30 q6h for agitation management, for which I concur. The patient is a medicated [place] IV. Nursing reported additional issues with agitation, and as such trauma team consensus is to start Valproic Acid 250 BID. I will continue to follow. Tom Dunaway PhD Mar 05, 2017 08:07
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
[2017-03-05] MEDS: metroNIDAZOLE 500 MG INJ 100 ML IV SCH ×2 (08:44→16:02)
[2017-03-05] MEDS: POLYETHYLENE GLYCOL 17 GM PKG PO SCH ×2 (08:44→20:57)
[2017-03-05] MEDS: HALOPERIDOL LACTATE 5 MG/ML AMP IV PRN ×2 (08:45→18:14)
[2017-03-05] MEDS: MUPIROCIN 2% OINT 1 APPLIC/GM SYR NASAL SCH ×2 (08:45→21:00)
[2017-03-05] MEDS: NUTRISOURCE FIBER POWDER 1 PACK G-TUBE SCH ×2 (08:46→20:56)
[2017-03-05] MEDS: METOCLOPRAMIDE HCL 10 MG/2 ML VIAL IV PUSH SCH ×3 (08:46→16:02)
[2017-03-05] MEDS: BACITRACIN TOP OINT 15 GM TUBE TOP SCH ×2 (08:46→21:00)
[2017-03-05] MEDS: ENOXAPARIN SODIUM 40 MG/0.4 ML SYRINGE SQ SCH (11:16)
[2017-03-05] MEDS: VALPROIC ACID 250 MG CAP PO SCH ×2 (11:48→20:00)
[2017-03-05] MEDS: ZIPRASIDONE MESYLATE 20 MG VIAL IM SCH (13:48)
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
[2017-03-05] MEDS: PANTOPRAZOLE SODIUM 40 MG VIAL IVP SCH (18:14)
[2017-03-05] MEDS: PROPRANOLOL HCL 40 MG TAB PO SCH (18:51)
[2017-03-06] VITALS (18 sets, daily range): BP systolic 107–151; BP diastolic 56–91; PULSE 92–138; RESP 18–32; TEMP 99.5–101; O2SAT 93–100
[2017-03-06] MEDS: guaiFENesin SOLUTION 200 MG/10 ML CUP OG-TUBE SCH ×4 (00:03→16:36)
[2017-03-06] MEDS: oxyCODONE HCL ORAL CONC 20 MG/ML SYRINGE PO SCH ×5 (00:03→16:36)
[2017-03-06] MEDS: HALOPERIDOL LACTATE 5 MG/ML AMP IV PRN ×3 (00:03→20:40)
[2017-03-06] MEDS: METOCLOPRAMIDE HCL 10 MG/2 ML VIAL IV PUSH SCH ×3 (00:04→16:42)
[2017-03-06] MEDS: metroNIDAZOLE 500 MG INJ 100 ML IV SCH ×3 (00:04→16:35)
[2017-03-06] MEDS: PROPRANOLOL HCL 40 MG TAB PO SCH ×4 (00:43→16:36)
[2017-03-06] MEDS ORDERED: DEXTROSE 50% IN WATER 50 ML SYRINGE ONE (00:50)
[2017-03-06] MEDS: CHLORHEXIDINE GLUCONATE 2 % 1 PACK (2 CLOTHS) TOP SCH (01:47)
[2017-03-06] MEDS: ZIPRASIDONE MESYLATE 20 MG VIAL IM SCH ×3 (02:09→14:03)
[2017-03-06] MEDS: FUROSEMIDE 40 MG/4 ML VIAL IV PUSH SCH ×4 (02:09→20:40)
[2017-03-06] MEDS: PROPOFOL 1000 MG/100 ML INJ 100 ML IV SCH ×2 (04:00→05:47)
[2017-03-06] MEDS: RESP: ALBUTEROL 2.5 MG/IPRATROPIUM 0.5 MG NEB (SCH) NEB ×4 (04:10→20:05)
[2017-03-06] MEDS: CEFEPIME INJ 2,000 MG in SODIUM CHLORIDE 0.9% INJ 100 ML IV SCH ×3 (05:46→20:39)
[2017-03-06] MEDS: fentaNYL DRIP 250 ML IV SCH (05:47)
[2017-03-06] MEDS: LINEZOLID 600 MG PREMIX 300 ML IV SCH ×2 (05:47→16:42)
[2017-03-06] MEDS: INSULIN NovoLIN REGULAR SUPPLEMENTAL SCALE SQ SCH ×4 (05:47→18:00)
[2017-03-06] MEDS: CHLORHEXIDINE 0.12% (ORAL KIT) 15 ML CUP MT SCH (08:00)
[2017-03-06] MEDS: MUPIROCIN 2% OINT 1 APPLIC/GM SYR NASAL SCH ×2 (08:46→20:39)
[2017-03-06] MEDS: POLYETHYLENE GLYCOL 17 GM PKG PO SCH ×2 (08:48→21:00)
[2017-03-06] MEDS: VALPROIC ACID 250 MG CAP PO SCH ×2 (08:49→21:00)
[2017-03-06] MEDS: NUTRISOURCE FIBER POWDER 1 PACK G-TUBE SCH ×2 (08:49→21:00)
[2017-03-06] MEDS: BACITRACIN TOP OINT 15 GM TUBE TOP SCH ×2 (08:50→21:15)
[2017-03-06] MEDS: ACETAMINOPHEN 1000 MG/100 ML VIAL IV PRN ×2 (10:26→21:55)
[2017-03-06] MEDS: ENOXAPARIN SODIUM 40 MG/0.4 ML SYRINGE SQ SCH (10:26)
[2017-03-06 10:31] LABS: HEMATOCRIT 31.4 % (39.0-51.0); MEAN CELL VOLUME 86.6 FL (80.0-100.0); MEAN CORPUSCULAR HEMOGLOBIN 29.6 PG (27.0-34.0); MEAN CORPUSCULAR HGB CONC 34.2 % (32.0-36.0); PLATELET COUNT 844 TH/MM3 (150-450); RED BLOOD COUNT 3.63 MIL/MM3 (4.50-5.90); RED CELL DISTRIBUTION WIDTH 12.7 % (11.6-17.2); WHITE BLOOD COUNT 35.6 TH/MM3 (4.0-11.0)
[2017-03-06 10:36] LABS: REVIEW FLAG FINAL
[2017-03-06 10:47] LABS: BICARBONATE 33.8 MEQ/L (21.0-32.0); MAGNESIUM 2.3 MG/DL (1.5-2.5); POTASSIUM 3.6 MEQ/L (3.5-5.1)
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
[2017-03-06] MEDS: PANTOPRAZOLE SODIUM 40 MG VIAL IVP SCH (16:42)
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
--- NOTE | 2017-03-06 18:24 | HHI.IDPN ---
Subjective Subjective Remarks doing good extubated On venti mask co cough with thick secretions, gagging on it + fever, thrending down, but WBC markedly decreased Antibiotics cefepime zyvox flagyl Allergies: Coded Allergies: *MDRO Multi-Drug Resistant Organism (Verified Adverse Reaction, Unknown, ) MRSA PCR Screen POSITIVE 02/22/17 MRSA (bronc wash)-02/22/17 Objective . Vital Signs Date Time Temp Pulse Resp B/P Pulse Ox O2 Delivery O2 Flow Rate FiO2 03/06/17 16:00 138 03/06/17 16:00 100.3 138 28 151/78 98 03/06/17 14:00 109 03/06/17 12:00 40 03/06/17 12:00 100 03/06/17 12:00 99.5 100 28 137/78 100 03/06/17 10:45 97 Non-Rebreather 15.00 03/06/17 10:00 113 03/06/17 08:02 100 40 03/06/17 08:00 92 03/06/17 08:00 101.0 92 18 107/56 100 Arterial Line 03/06/17 08:00 40 03/06/17 06:51 22 03/06/17 06:00 110 03/06/17 04:10 93 40 03/06/17 04:00 111 03/06/17 04:00 40 03/06/17 04:00 100.0 104 20 121/75 96 03/06/17 02:00 103 03/06/17 01:18 93 40 03/06/17 00:00 100 03/06/17 00:00 100.1 100 18 124/70 100 03/06/17 00:00 40 03/05/17 22:00 104 03/05/17 21:00 100 40 03/05/17 20:00 92 03/05/17 20:00 40 03/05/17 20:00 101.4 92 18 128/68 100 03/05/17 03/05/17 03/06/17 15:00 23:00 07:00 Intake Total 1142 ml 1255 ml 967 ml Output Total 3850 ml 3180 ml 2305 ml Balance -2708 ml -1925 ml -1338 ml Intake IV Total 1102 ml 1055 ml 667 ml Tube Feeding 0 ml 0 ml Tube Irrigant 40 ml Other 200 ml 300 ml Output Urine Total 3750 ml 3150 ml 2275 ml Stool Total 0 ml 0 ml Drainage Total 100 ml 30 ml 30 ml . Laboratory Tests Test 03/05/17 03/06/17 04:25 10:00 White Blood Count 43.6 TH/MM3 35.6 TH/MM3 Red Blood Count 3.13 MIL/MM3 3.63 MIL/MM3 Hemoglobin 9.1 GM/DL 10.7 GM/DL Hematocrit 27.4 % 31.4 % Mean Corpuscular Volume 87.6 FL 86.6 FL Mean Corpuscular Hemoglobin 29.1 PG 29.6 PG Mean Corpuscular Hemoglobin 33.2 % 34.2 % Concent Red Cell Distribution Width 12.8 % 12.7 % Platelet Count 581 TH/MM3 844 TH/MM3 Mean Platelet Volume 8.2 FL 8.7 FL Neutrophils (%) (Auto) 83.3 % Lymphocytes (%) (Auto) 4.4 % Monocytes (%) (Auto) 9.6 % Eosinophils (%) (Auto) 2.1 % Basophils (%) (Auto) 0.6 % Neutrophils # (Auto) 36.3 TH/MM3 Lymphocytes # (Auto) 1.9 TH/MM3 Monocytes # (Auto) 4.2 TH/MM3 Eosinophils # (Auto) 0.9 TH/MM3 Basophils # (Auto) 0.3 TH/MM3 CBC Comment AUTO DIFF Differential Total Cells 100 Counted Neutrophils % (Manual) 81 % Band Neutrophils % 6 % Lymphocytes % 2 % Monocytes % 8 % Eosinophils % 1 % Neutrophils # (Manual) 38.4 TH/MM3 Metamyelocytes 1 % Differential Comment FINAL DIFF MANUAL Plasma Cells 1 % Platelet Estimate HIGH Platelet Morphology Comment NORMAL Polychromasia 2.1 % Laboratory Tests Test 03/05/17 03/05/17 03/06/17 04:25 18:07 10:00 Sodium Level 134 MEQ/L 135 MEQ/L Potassium Level 3.3 MEQ/L 3.5 MEQ/L 3.6 MEQ/L Chloride Level 99 MEQ/L 94 MEQ/L Carbon Dioxide Level 27.4 MEQ/L 33.8 MEQ/L Anion Gap 8 MEQ/L 7 MEQ/L Blood Urea Nitrogen 19 MG/DL 18 MG/DL Creatinine 0.60 MG/DL 0.59 MG/DL Estimat Glomerular Filtration 172 ML/MIN 175 ML/MIN Rate Random Glucose 96 MG/DL 90 MG/DL Calcium Level 7.7 MG/DL 8.0 MG/DL Phosphorus Level 2.4 MG/DL Magnesium Level 1.9 MG/DL 2.3 MG/DL Total Bilirubin 0.5 MG/DL Aspartate Amino Transf 76 U/L (AST/SGOT) Alanine Aminotransferase 56 U/L (ALT/SGPT) Alkaline Phosphatase 163 U/L Total Protein 5.8 GM/DL Albumin 1.8 GM/DL Microbiology Date/Time Procedure Status Source Growth 03/03/17 20:25 Aerobic Blood Culture - Preliminary Resulted Blood Peripheral NO GROWTH IN 3 DAYS 03/03/17 20:25 Anaerobic Blood Culture - Preliminary Resulted Blood Peripheral NO GROWTH IN 3 DAYS 03/03/17 20:30 Aerobic Blood Culture - Preliminary Resulted Blood Peripheral NO GROWTH IN 3 DAYS 03/03/17 20:30 Anaerobic Blood Culture - Preliminary Resulted Blood Peripheral NO GROWTH IN 3 DAYS 03/04/17 00:00 Gram Stain - Final Resulted Wound Other 03/04/17 00:00 Wound Culture - Preliminary Resulted Wound Other NO GROWTH IN 48 HOURS. 03/04/17 00:00 Acid Fast Stain - Final Resulted Wound Other NO ACID FAST BACILLI SEEN 03/04/17 00:00 Mycobacterial Culture Resulted Wound Other Pending 03/04/17 00:00 Fungal Smear - Final Resulted Wound Other NO FUNGAL ELEMENTS SEEN. 03/04/17 00:00 Fungal Culture Resulted Wound Other Pending Imaging Last Impressions Chest X-Ray 03/05/17 0600 Signed Impressions: Service Date/Time: Sunday, March 05, 2017 04:10 - CONCLUSION: Bilateral patchy airspace disease. Kahlil Moon MD Chest CT 03/04/17 0000 Signed Impressions: Service Date/Time: February 10:56 - CONCLUSION: 1. Significant interval improvement in diffuse bilateral airspace consolidation with residual patchy airspace disease which appears slightly more nodular. Differential considerations include resolving aspiration and improving ARDS versus improving diffuse infection. 2. Mildly improved small left and trace right simple appearing pleural effusions. 3. Visualized portions of the upper abdomen demonstrate significant continued abnormal splenic enhancement consistent with splenic infarction and heterogeneous left adrenal mass consistent with possible adrenal hemorrhage. Serafin Mix MD Abdomen/Pelvis CT 03/04/17 0000 Signed Impressions: Service Date/Time: February 10:57 - CONCLUSION: 1. There are extensive bilateral pulmonary infiltrates concerning for a pneumonia. 2. No significant intra-abdominal fluid identified. There is a small bore drainage catheter in the right lower quadrant. There is a small amount of free fluid in the dependent portion of the pelvis. There is no evidence of gas within this. 3. Large splenic contusion without evidence of active bleeding. 4. Dobbhoff tube within the distal stomach. Jose Ramon Kaiser MD Abdomen X-Ray 03/01/17 1100 Signed Impressions: Service Date/Time: Wednesday, March 01, 2017 11:09 - CONCLUSION: 1. The tip of the patient's weighted feeding tube is at the level of the antrum/pylorus. Jose Ramon Kaiser MD Head CT 02/28/17 0000 Signed Impressions: Service Date/Time: Tuesday, February 28, 2017 14:16 - CONCLUSION: 1. Resolution of left subdural hematoma. 2. Evolving intracranial hemorrhages in the right temporoparietal and left frontal lobes. No intercurrent hemorrhage. 3. Interval development of paranasal sinusitis. Serafin Mix MD Retroperitoneal Abscess Drainage 02/26/17 0000 Signed Impressions: Service Date/Time: Sunday, February 26, 2017 17:31 - CONCLUSION: Uncomplicated CT guided drainage of pelvic fluid collection. Culture and Gram stain are pending. Catheter can be removed if the fluid is not infected. Lincoln Kaiser MD FACR Pelvis X-Ray 02/21/17 1518 Signed Impressions: Service Date/Time: Tuesday, February 21, 2017 15:04 - CONCLUSION: Intact pelvis. Dylan Heck MD Maxillofacial CT 02/21/17 1518 Signed Impressions: Service Date/Time: Tuesday, February 21, 2017 15:36 - CONCLUSION: Comminuted fracture of the nose. The rest of the face is intact. Chronic-appearing sinus disease. Dylan Heck MD Cervical Spine CT 02/21/17 1518 Signed Impressions: Service Date/Time: Tuesday, February 21, 2017 15:36 - CONCLUSION: Intact cervical spine. Dylan Heck MD Splenic Arteriogram 02/21/17 0000 Signed Impressions: Service Date/Time: Tuesday, February 21, 2017 18:17 - CONCLUSION: 1. Selective angiography of the common hepatic artery shows no signs of hemorrhage involving the liver. 2. Selective splenic artery angiography showed no hemorrhage initially but followup angiograms did show hemorrhage within the inferior margin of the spleen. Successful embolization utilizing Gelfoam. Rao Santillan Jr., MD Lumbar Spine CT 02/21/17 0000 Signed Impressions: Service Date/Time: Tuesday, February 21, 2017 15:44 - CONCLUSION: 1. No acute fracture or subluxation in the lumbar spine. 2. Chronic L1 limbus vertebra. Dylan Heck MD Knee X-Ray 02/21/17 0000 Signed Impressions: Service Date/Time: Tuesday, February 21, 2017 15:04 - CONCLUSION: No evidence of knee fracture. Dylan Heck MD Physical Exam CONSTITUTIONAL/GENERAL: nauseated and gagging NAD TUBES/LINES/DRAINS: SKIN: No jaundice, no rash EYES: non icteric CARDIOVASCULAR: Regular rate and rhythm; no murmurs,rubs or gallops RESPIRATORY/CHEST: Symmetric, respirations. diffuse rhonchi b/l to auscultation. GASTROINTESTINAL: soft no reaction to palpaption, not distended dressing in place medial laparotomy inttact GENITOURINARY Reyes catheter in place w clear light yellow urine MUSCULOSKELETAL: Extremities without clubbing, cyanosis, or edema. NEUROLOGICAL: awake alert non focal PSYCHIATRIC: calm, cooperative Assessment & Plan Remarks Multitrauma, including TBI, splenic lac Acute VDRF, resolved Aspiration PNA, prehospital - growing H.flu and MRSA, repeat just MRSA - also growing yeast, - no clin significance Splenic lac with hemorrrage sp drainage, no e/o infx - sp embolisation of spelinc artery on admission, now sp splenectomy negative intraabd fluid clx Clinically improving, stable Leukocytosis, leukemoid reaction ? nectotic tissue from embolised spleen - improved p splenectomy HIgh fever: ? line, ?persistent PNA, ?related to spleen lac and accumulated blood products in abdominal cavity?: all abouve can be contributing - trending down REC's: cont cefpeime cont zyvox - cont flagyl -fu repeat BC - fu WBC, fu clinically - anticipate discontinuation of cefepime, flagyl early next week Pt will need to be vaccinated > 2 wks from splenectomy a dose of PCV13 , followed by PPSV23 at least eight weeks later. Hib vaccine - per mother pt was fully vaccinated with all recommended chilhood vaccine - meningococcal vaccine Discussed Condition With brandie mother @ b/s Ayana Huerta MD Mar 06, 2017 18:24
[2017-03-06] MEDS: HYDROmorphone HCL PF 1 MG/ML VIAL IV PUSH PRN (21:55)
[2017-03-06] MEDS: METOPROLOL TARTRATE 5 MG/5 ML VIAL IV PUSH PRN (22:50)
[2017-03-07] VITALS (15 sets, daily range): BP systolic 107–147; BP diastolic 61–86; PULSE 63–146; RESP 19–34; TEMP 99.3–101.1; O2SAT 95–100
[2017-03-07] MEDS: METOCLOPRAMIDE HCL 10 MG/2 ML VIAL IV PUSH SCH ×3 (01:00→16:34)
[2017-03-07] MEDS: FUROSEMIDE 40 MG/4 ML VIAL IV PUSH SCH ×4 (01:59→22:25)
[2017-03-07] MEDS: CHLORHEXIDINE GLUCONATE 2 % 1 PACK (2 CLOTHS) TOP SCH (01:59)
[2017-03-07] MEDS: guaiFENesin SOLUTION 200 MG/10 ML CUP OG-TUBE SCH ×5 (02:01→23:32)
[2017-03-07] MEDS: PROPRANOLOL HCL 40 MG TAB PO SCH ×5 (02:01→23:33)
[2017-03-07] MEDS: HYDROmorphone HCL PF 1 MG/ML VIAL IV PUSH PRN ×5 (02:06→22:25)
[2017-03-07] MEDS: METOPROLOL TARTRATE 5 MG/5 ML VIAL IV PUSH PRN ×3 (02:06→10:10)
[2017-03-07] MEDS: ZIPRASIDONE MESYLATE 20 MG VIAL IM PRN ×2 (02:07→14:11)
[2017-03-07] MEDS: HALOPERIDOL LACTATE 5 MG/ML AMP IV PRN ×3 (03:01→20:05)
[2017-03-07] MEDS: RESP: ALBUTEROL 2.5 MG/IPRATROPIUM 0.5 MG NEB (SCH) NEB ×4 (03:03→20:07)
--- NOTE | 2017-03-07 04:36 | RADRPT ---
EXAM DATE/TIME: 03/07/2017 03:53 [facility] COMPARISON: CHEST SINGLE AP, March 05, 2017, 4:10. INDICATIONS : Shortness of breath MEDICAL HISTORY : None. SURGICAL HISTORY : None. ENCOUNTER: Subsequent ACUITY: 2 weeks PAIN SCORE: Non-responsive. LOCATION: Bilateral chest FINDINGS: A single view of the chest demonstrates bilateral patchy opacities. Heart normal in size. The cardiom ediastinal contours are unremarkable. Osseous structures are intact. CONCLUSION: Bilateral patchy airspace disease. Kahlil Moon MD on March 07, 2017 at 4:34 Board Certified Radiologist. This report was verified electronically.
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
[2017-03-07 05:10] LABS: AUTOMATED NEUTROPHIL # 34.6 TH/MM3 (1.8-7.7); BASOPHIL # 0.4 TH/MM3 (0-0.2); BASOPHIL % 0.9 % (0.0-2.0); EOSINOPHIL # 0.2 TH/MM3 (0-0.4); EOSINOPHIL % 0.5 % (0.0-4.0); LYMPH % 5.4 % (9.0-44.0); LYMPHOCYTE # 2.2 TH/MM3 (1.0-4.8); MEAN CELL VOLUME 85.9 FL (80.0-100.0); MEAN CORPUSCULAR HEMOGLOBIN 29.4 PG (27.0-34.0); MEAN CORPUSCULAR HGB CONC 34.3 % (32.0-36.0); MONO % 10.4 % (0.0-8.0); NEUT % 82.8 % (16.0-70.0); PLATELET COUNT 1084 TH/MM3 (150-450); RED BLOOD COUNT 3.38 MIL/MM3 (4.50-5.90); RED CELL DISTRIBUTION WIDTH 12.6 % (11.6-17.2); WHITE BLOOD COUNT 41.7 TH/MM3 (4.0-11.0)
[2017-03-07 05:16] LABS: BLOOD GAS BASE EXCESS 2.5 mmol/L (-2-2); BLOOD GAS CARBOXYHEMOGLOBIN 1.1 % (0-4); BLOOD GAS HCO3 25 mmol/L (22-26); BLOOD GAS METHEMOGLOBIN 0.9 % (0-2); BLOOD GAS O2 HGB SATURATION 96 % (90-100); BLOOD GAS OXYGEN CONTENT 14.7 Vol % (12.0-20.0); BLOOD GAS PCO2 31 mmHg (38-42); BLOOD GAS PO2 94 mmHg (61-120); BLOOD GAS TOTAL HGB 10.9 G/DL (12.0-16.0); TEMP CORR TO 98.6
[2017-03-07 05:17] LABS: CRITICAL VALUE YES; DRAW SITE LT RADIAL; LITER FLOW 6 L/M; NUMBER OF ARTERIAL PUNCTURES 1; OXYGEN DEVICE NASAL CANNULA; STAT NO; ULNAR PULSE PRESENT
[2017-03-07 05:18] LABS: HEMO FLAGS AUTO DIFF
[2017-03-07] MEDS: CEFEPIME INJ 2,000 MG in SODIUM CHLORIDE 0.9% INJ 100 ML IV SCH ×3 (05:29→22:24)
[2017-03-07] MEDS: LINEZOLID 600 MG PREMIX 300 ML IV SCH ×2 (05:29→16:34)
[2017-03-07 05:42] LABS: ALKALINE PHOSPHATASE 125 U/L (45-117); ALT (GPT) 50 U/L (9-52); ANION GAP 13 MEQ/L (5-15); AST (GOT) 34 U/L (15-39); BLOOD UREA NITROGEN 30 MG/DL (7-18); CHLORIDE 97 MEQ/L (98-107); GLOMERULAR FILTRATION RATE 133 ML/MIN (>89); MAGNESIUM 2.5 MG/DL (1.5-2.5); SODIUM (NA) 135 MEQ/L (136-145); TOTAL BILIRUBIN ADULT 0.6 MG/DL (0.2-1.0)
[2017-03-07 05:49] LABS: BANDS 12 % (0-6); POLYS (SEG NEUTROPHILS) 72 % (16-70); WBC DIFF SAMPLE 100
[2017-03-07 05:50] LABS: PLATELET ESTIMATE SMEAR HIGH (NORMAL); PLATELET MORPHOLOGY NORMAL (NORMAL); SCAN/DIFF FINAL DIFF MANUAL
[2017-03-07 05:59] LABS: POTASSIUM 2.7 MEQ/L (3.5-5.1)
[2017-03-07] MEDS: INSULIN NovoLIN REGULAR SUPPLEMENTAL SCALE SQ SCH ×5 (06:00→23:51)
[2017-03-07] MEDS: POTASSIUM CHLOR 20 MEQ PREMIX 100 ML IV PRN ×2 (06:14→23:33)
[2017-03-07] MEDS: NUTRISOURCE FIBER POWDER 1 PACK G-TUBE SCH ×2 (07:29→21:00)
[2017-03-07] MEDS: POLYETHYLENE GLYCOL 17 GM PKG PO SCH ×2 (07:30→20:06)
[2017-03-07] MEDS: BACITRACIN TOP OINT 15 GM TUBE TOP SCH ×2 (07:30→20:06)
[2017-03-07] MEDS: ACETAMINOPHEN 1000 MG/100 ML VIAL IV PRN ×2 (07:44→18:29)
[2017-03-07] MEDS: MUPIROCIN 2% OINT 1 APPLIC/GM SYR NASAL SCH ×2 (07:45→20:06)
[2017-03-07] MEDS: metroNIDAZOLE 500 MG INJ 100 ML IV SCH ×4 (07:45→23:33)
[2017-03-07] MEDS: VALPROIC ACID 250 MG CAP PO SCH ×2 (07:49→20:06)
[2017-03-07] MEDS ORDERED: PROPRANOLOL INJ 1 MG/ML AMP IV PUSH ONE (11:00)
[2017-03-07] MEDS: ENOXAPARIN SODIUM 40 MG/0.4 ML SYRINGE SQ SCH (11:50)
[2017-03-07] MEDS: VALPROATE INJ 250 MG in SODIUM CHLORIDE 0.9% INJ 100 ML IV SCH ×2 (11:52→22:24)
--- NOTE | 2017-03-07 13:30 | RADRPT ---
EXAM DATE/TIME: 03/07/2017 12:55 [facility] COMPARISON: CT ABDOMEN & PELVIS W CONTRAST, February 28, 2017, 14:22. CT ABDOMEN & PELVIS W CONTRAST, March 04, 2017, 10:57. ABDOMEN SINGLE VIEW, February 28, 2017, 21:39. INDICATIONS : Evaluate NG tube placement. MEDICAL HISTORY : None. SURGICAL HISTORY : None. ENCOUNTER: Subsequent ACUITY: 1 day PAIN SCORE: Non-responsive. LOCATION: abdomen FINDINGS: There is a staple line in the midline. A feeding tube is seen with its tip in the stomach. Clips are seen in the left upper quadrant. The bowel is not significantly dilated. CONCLUSION: Feeding tube in the stomach. Dylan Alejandre MD on March 07, 2017 at 13:25 Board Certified Radiologist. This report was verified electronically.
[2017-03-07] MEDS: PANTOPRAZOLE SODIUM 40 MG VIAL IVP SCH (16:34)
[2017-03-08] VITALS (14 sets, daily range): BP systolic 114–147; BP diastolic 73–81; PULSE 78–107; RESP 18–24; TEMP 98.8–100.2; O2SAT 92–100
[2017-03-08] MEDS: HALOPERIDOL LACTATE 5 MG/ML AMP IV PRN ×2 (00:09→05:44)
[2017-03-08] MEDS: POTASSIUM CHLOR 20 MEQ PREMIX 100 ML IV PRN ×6 (01:45→23:08)
[2017-03-08] MEDS: METOCLOPRAMIDE HCL 10 MG/2 ML VIAL IV PUSH SCH ×3 (01:46→17:24)
[2017-03-08] MEDS: ZIPRASIDONE MESYLATE 20 MG VIAL IM PRN (02:00)
[2017-03-08] MEDS: RESP: ALBUTEROL 2.5 MG/IPRATROPIUM 0.5 MG NEB (SCH) NEB ×4 (03:34→21:12)
[2017-03-08] MEDS: HYDROmorphone HCL PF 1 MG/ML VIAL IV PUSH PRN ×3 (04:24→21:18)
[2017-03-08] MEDS: PROPRANOLOL HCL 40 MG TAB PO SCH ×3 (04:40→17:25)
[2017-03-08] MEDS: guaiFENesin SOLUTION 200 MG/10 ML CUP OG-TUBE SCH ×3 (04:40→17:25)
[2017-03-08] MEDS: ACETAMINOPHEN 1000 MG/100 ML VIAL IV PRN (04:40)
[2017-03-08] MEDS: FUROSEMIDE 40 MG/4 ML VIAL IV PUSH SCH ×2 (04:41→08:39)
[2017-03-08] MEDS: LINEZOLID 600 MG PREMIX 300 ML IV SCH (04:41)
[2017-03-08] MEDS: CHLORHEXIDINE GLUCONATE 2 % 1 PACK (2 CLOTHS) TOP SCH (04:41)
[2017-03-08] MEDS: INSULIN NovoLIN REGULAR SUPPLEMENTAL SCALE SQ SCH ×3 (05:05→18:00)
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
[2017-03-08] MEDS: CEFEPIME INJ 2,000 MG in SODIUM CHLORIDE 0.9% INJ 100 ML IV SCH (05:22)
[2017-03-08 06:36] LABS: ALT (GPT) 46 U/L (9-52); ANION GAP 13 MEQ/L (5-15); AST (GOT) 37 U/L (15-39); BICARBONATE 23.4 MEQ/L (21.0-32.0); CHLORIDE 102 MEQ/L (98-107); GLOMERULAR FILTRATION RATE 109 ML/MIN (>89); MAGNESIUM 2.7 MG/DL (1.5-2.5); POTASSIUM 3.4 MEQ/L (3.5-5.1); SODIUM (NA) 138 MEQ/L (136-145)
[2017-03-08 06:38] LABS: ALKALINE PHOSPHATASE 122 U/L (45-117); TOTAL BILIRUBIN ADULT 0.5 MG/DL (0.2-1.0)
[2017-03-08 06:39] LABS: BLOOD UREA NITROGEN 31 MG/DL (7-18)
[2017-03-08 06:54] LABS: AUTOMATED NEUTROPHIL # 24.5 TH/MM3 (1.8-7.7); BASOPHIL # 0.2 TH/MM3 (0-0.2); BASOPHIL % 0.6 % (0.0-2.0); EOSINOPHIL # 1.1 TH/MM3 (0-0.4); EOSINOPHIL % 3.4 % (0.0-4.0); HEMATOCRIT 30.3 % (39.0-51.0); HEMO FLAGS AUTO DIFF; LYMPH % 7.8 % (9.0-44.0); LYMPHOCYTE # 2.5 TH/MM3 (1.0-4.8); MEAN CELL VOLUME 86.9 FL (80.0-100.0); MEAN CORPUSCULAR HEMOGLOBIN 29.6 PG (27.0-34.0); MONO % 12.5 % (0.0-8.0); NEUT % 75.7 % (16.0-70.0); PLATELET COUNT 1335 TH/MM3 (150-450); RED BLOOD COUNT 3.48 MIL/MM3 (4.50-5.90); WHITE BLOOD COUNT 32.4 TH/MM3 (4.0-11.0)
[2017-03-08] MEDS: MUPIROCIN 2% OINT 1 APPLIC/GM SYR NASAL SCH ×2 (08:27→21:00)
[2017-03-08] MEDS: POLYETHYLENE GLYCOL 17 GM PKG PO SCH ×2 (08:27→21:00)
[2017-03-08] MEDS: metroNIDAZOLE 500 MG INJ 100 ML IV SCH (08:33)
[2017-03-08 08:36] LABS: BANDS 8 % (0-6); EOSINOPHILS 4 % (0-4); MYELOCYTES 4 % (0-0); NEUTROPHIL # MANUAL DIFF 24.9 TH/MM3 (1.8-7.7); POLYS (SEG NEUTROPHILS) 64 % (16-70); PROMYELOCYTES 1 % (0-0); WBC DIFF SAMPLE 100
[2017-03-08 08:38] LABS: PLATELET ESTIMATE SMEAR HIGH (NORMAL); PLATELET MORPHOLOGY NORMAL (NORMAL); SCAN/DIFF FINAL DIFF MANUAL
[2017-03-08 08:39] LABS: OVALOCYTES 1+ (NORMAL); POLYCHROMASIA 3.1 % (0.0-1.9)
[2017-03-08] MEDS: BACITRACIN TOP OINT 15 GM TUBE TOP SCH ×2 (08:39→21:18)
[2017-03-08] MEDS: NUTRISOURCE FIBER POWDER 1 PACK G-TUBE SCH ×2 (08:39→21:17)
[2017-03-08] MEDS ORDERED: VALPROIC ACID SYRUP 250 MG/5 ML UDC PO SCH (09:00)
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
[2017-03-08] MEDS: ENOXAPARIN SODIUM 40 MG/0.4 ML SYRINGE SQ SCH (10:03)
[2017-03-08] MEDS: ASPIRIN 325 MG TAB PO SCH (10:03)
--- NOTE | 2017-03-08 11:03 | HHI.PR ---
Neuropsych Behavior Behavior: Moderate: Impulsive/Agitated Cognitive Cognitive: Severe: Attention/Concentration, Confused/Orientation, Insight/ Awareness, Judgement/Problem-Solving, Memory Psychosocial Psychosocial: Intact: Psychosocial, Family/Other Adjustment, Realistic Expectation, Unable to Asses: Self-Esteem/Confidence Progress Notes/Response to Tx Contents of Sessions: Adjustment, Level of Consciousness Time with Patient: 15 minutes Premorbid psychological status Premorbid Cognitive, Emotional and Behavioral Status: Unable to Assess. Family was not present to discuss. Behavioral Reactions of Patient and Family/Support System: Unable to Assess. The patients family will likely experience ongoing issues of adjustment given the nature of the injury, and this aspect of recovery will require ongoing monitoring. Emotional/Behavioral Status of Patient and Family/Support System: Unable to Assess. Pertinent issues, if appropriate to this patients clinical care, are described in detail above. Maximizing acute care outcome It is recommended that the patient be monitored for emergent behavioral impulsivity as the medical condition evolves. This patients neuropathological challenges may limit their rehabilitation potential going forward, and these challenges will require specialized therapeutic skills to maximize outcome. Additionally, the patients family is experiencing ongoing issues of adjustment given the traumatic nature of the injury, and they may benefit from ongoing psychological assistance. Anticipated Problems Ongoing areas of concern will include behavioral impulsivity, lack of insight and judgment, which is expected to improve with time and treatment. Presently , the patient is intubated and sedated. Treatment Plan This clinician will continue to follow with you throughout the course of this patients acute care treatment, and I will be available to meet with the patient s family/support system to facilitate their understanding and the ongoing care of their family member. The goals of neuropsychological intervention shall be both educational and supportive to the family/support system as is deemed clinically appropriate. [facility] Level: IV:Confused/Agitated-maximal assist Impression This patient sustained a severe traumatic brain injury with anticipated major neurocognitive disorder. Diagnosis: (1) Major neurocognitive disorder as late effect of traumatic brain injury without behavioral disturbance Status: Acute Progress Note Narrative Ongoing follow-up of patient seen during daily trauma rounds. This is day 15 post injury. The patient is successfully extubated, awake, alert but disoriented. Follows some commands. Issues have included resolving agitation, and as such discussed with Dr. Lopez about clinical treatments in light of CIR admission criteria. Trauma team consensus plan is to increase Valproic Acid to 250 TID, Propranolol 40 q6H, d/c Haldol PRN, and keep Geodon PRN on for one more day to gauge response of Valproic Acid. This patient is an improving Rancho IV. I will continue to follow. Tom Dunaway PhD Mar 08, 2017 11:03 am
[2017-03-08] MEDS: VALPROIC ACID SYRUP 250 MG/5 ML UDC PO SCH ×2 (12:11→17:25)
--- NOTE | 2017-03-08 14:33 | HHI.IDPN ---
Subjective Subjective Remarks febrile, mostly low grade, > 101 not talking, intelligible sounds but following commands Antibiotics cefepime zyvox flagyl Allergies: Coded Allergies: *MDRO Multi-Drug Resistant Organism (Verified Adverse Reaction, Unknown, ) MRSA PCR Screen POSITIVE 02/22/17 MRSA (bronc wash)-02/22/17 Objective . Vital Signs Date Time Temp Pulse Resp B/P Pulse Ox O2 Delivery O2 Flow Rate FiO2 03/08/17 12:00 98 03/08/17 12:00 100.1 98 24 120/81 92 03/08/17 10:00 96 03/08/17 09:32 97 21 03/08/17 08:00 99.8 92 23 147/73 100 03/08/17 08:00 101 03/08/17 06:00 107 03/08/17 04:00 88 03/08/17 04:00 100.2 98 20 120/79 100 03/08/17 02:00 92 03/08/17 00:00 89 03/08/17 00:00 99.8 106 22 114/73 97 03/07/17 22:00 98 03/07/17 21:00 100.5 88 19 107/61 100 03/07/17 20:07 100 Nasal Cannula 4.00 03/07/17 20:00 95 03/07/17 18:00 112 03/07/17 16:00 100.3 138 27 131/74 100 03/07/17 16:00 138 03/07/17 03/07/17 03/08/17 15:00 23:00 07:00 Intake Total 1062 ml 934 ml 1152 ml Output Total 950 ml 1145 ml 1950 ml Balance 112 ml -211 ml -798 ml Intake IV Total 1062 ml 825 ml 1011 ml Tube Feeding 109 ml 141 ml Output Urine Total 950 ml 1120 ml 1650 ml Stool Total 25 ml 300 ml # Bowel Movements 3 . Laboratory Tests Test 03/07/17 03/08/17 04:59 06:03 White Blood Count 41.7 TH/MM3 32.4 TH/MM3 Red Blood Count 3.38 MIL/MM3 3.48 MIL/MM3 Hemoglobin 10.0 GM/DL 10.3 GM/DL Hematocrit 29.0 % 30.3 % Mean Corpuscular Volume 85.9 FL 86.9 FL Mean Corpuscular Hemoglobin 29.4 PG 29.6 PG Mean Corpuscular Hemoglobin 34.3 % 34.0 % Concent Red Cell Distribution Width 12.6 % 13.0 % Platelet Count 1084 TH/MM3 1335 TH/MM3 Mean Platelet Volume 8.2 FL 8.6 FL Neutrophils (%) (Auto) 82.8 % 75.7 % Lymphocytes (%) (Auto) 5.4 % 7.8 % Monocytes (%) (Auto) 10.4 % 12.5 % Eosinophils (%) (Auto) 0.5 % 3.4 % Basophils (%) (Auto) 0.9 % 0.6 % Neutrophils # (Auto) 34.6 TH/MM3 24.5 TH/MM3 Lymphocytes # (Auto) 2.2 TH/MM3 2.5 TH/MM3 Monocytes # (Auto) 4.3 TH/MM3 4.0 TH/MM3 Eosinophils # (Auto) 0.2 TH/MM3 1.1 TH/MM3 Basophils # (Auto) 0.4 TH/MM3 0.2 TH/MM3 CBC Comment AUTO DIFF AUTO DIFF Differential Total Cells 100 100 Counted Neutrophils % (Manual) 72 % 64 % Band Neutrophils % 12 % 8 % Lymphocytes % 5 % 9 % Monocytes % 11 % 10 % Neutrophils # (Manual) 35.0 TH/MM3 24.9 TH/MM3 Differential Comment FINAL DIFF FINAL DIFF MANUAL MANUAL Platelet Estimate HIGH HIGH Platelet Morphology Comment NORMAL NORMAL Eosinophils % 4 % Myelocytes 4 % Promyelocytes 1 % Polychromasia 3.1 % Ovalocytes 1+ Laboratory Tests Test 03/07/17 03/07/17 03/08/17 04:59 22:46 06:03 Sodium Level 135 MEQ/L 138 MEQ/L Potassium Level 2.7 MEQ/L 3.1 MEQ/L 3.4 MEQ/L Chloride Level 97 MEQ/L 102 MEQ/L Carbon Dioxide Level 25.0 MEQ/L 23.4 MEQ/L Anion Gap 13 MEQ/L 13 MEQ/L Blood Urea Nitrogen 30 MG/DL 31 MG/DL Creatinine 0.75 MG/DL 0.89 MG/DL Estimat Glomerular Filtration 133 ML/MIN 109 ML/MIN Rate Random Glucose 120 MG/DL 130 MG/DL Calcium Level 8.2 MG/DL 8.4 MG/DL Phosphorus Level 3.1 MG/DL Magnesium Level 2.5 MG/DL 2.7 MG/DL Total Bilirubin 0.6 MG/DL 0.5 MG/DL Aspartate Amino Transf 34 U/L 37 U/L (AST/SGOT) Alanine Aminotransferase 50 U/L 46 U/L (ALT/SGPT) Alkaline Phosphatase 125 U/L 122 U/L Total Protein 6.8 GM/DL 7.0 GM/DL Albumin 2.3 GM/DL 2.4 GM/DL Imaging Last Impressions Chest X-Ray 03/08/17 0600 Signed Impressions: Service Date/Time: Wednesday, March 08, 2017 03:55 - CONCLUSION: Patchy non-consolidative bilateral infiltrates, stable. Rao Feliciano MD Abdomen X-Ray 03/07/17 0000 Signed Impressions: Service Date/Time: Tuesday, March 07, 2017 12:55 - CONCLUSION: Feeding tube in the stomach. Dylan Alejandre MD Chest CT 03/04/17 0000 Signed Impressions: Service Date/Time: February 10:56 - CONCLUSION: 1. Significant interval improvement in diffuse bilateral airspace consolidation with residual patchy airspace disease which appears slightly more nodular. Differential considerations include resolving aspiration and improving ARDS versus improving diffuse infection. 2. Mildly improved small left and trace right simple appearing pleural effusions. 3. Visualized portions of the upper abdomen demonstrate significant continued abnormal splenic enhancement consistent with splenic infarction and heterogeneous left adrenal mass consistent with possible adrenal hemorrhage. Serafin Mix MD Abdomen/Pelvis CT 03/04/17 0000 Signed Impressions: Service Date/Time: February 10:57 - CONCLUSION: 1. There are extensive bilateral pulmonary infiltrates concerning for a pneumonia. 2. No significant intra-abdominal fluid identified. There is a small bore drainage catheter in the right lower quadrant. There is a small amount of free fluid in the dependent portion of the pelvis. There is no evidence of gas within this. 3. Large splenic contusion without evidence of active bleeding. 4. Dobbhoff tube within the distal stomach. Jose Ramon Kaiser MD Head CT 02/28/17 0000 Signed Impressions: Service Date/Time: Tuesday, February 28, 2017 14:16 - CONCLUSION: 1. Resolution of left subdural hematoma. 2. Evolving intracranial hemorrhages in the right temporoparietal and left frontal lobes. No intercurrent hemorrhage. 3. Interval development of paranasal sinusitis. Serafin Mix MD Retroperitoneal Abscess Drainage 02/26/17 0000 Signed Impressions: Service Date/Time: Sunday, February 26, 2017 17:31 - CONCLUSION: Uncomplicated CT guided drainage of pelvic fluid collection. Culture and Gram stain are pending. Catheter can be removed if the fluid is not infected. Lincoln Kaiser MD FACR Pelvis X-Ray 02/21/171517 Signed Impressions: Service Date/Time: Tuesday, February 21, 2017 15:04 - CONCLUSION: Intact pelvis. Dylan Heck MD Maxillofacial CT 02/21/171517 Signed Impressions: Service Date/Time: Tuesday, February 21, 2017 15:36 - CONCLUSION: Comminuted fracture of the nose. The rest of the face is intact. Chronic-appearing sinus disease. Dylan Heck MD Cervical Spine CT 02/21/171517 Signed Impressions: Service Date/Time: Tuesday, February 21, 2017 15:36 - CONCLUSION: Intact cervical spine. Dylan Heck MD Splenic Arteriogram 02/21/17 0000 Signed Impressions: Service Date/Time: Tuesday, February 21, 2017 18:17 - CONCLUSION: 1. Selective angiography of the common hepatic artery shows no signs of hemorrhage involving the liver. 2. Selective splenic artery angiography showed no hemorrhage initially but followup angiograms did show hemorrhage within the inferior margin of the spleen. Successful embolization utilizing Gelfoam. Rao Santillan Jr., MD Lumbar Spine CT 02/21/17 0000 Signed Impressions: Service Date/Time: Tuesday, February 21, 2017 15:44 - CONCLUSION: 1. No acute fracture or subluxation in the lumbar spine. 2. Chronic L1 limbus vertebra. Dylan Heck MD Knee X-Ray 02/21/17 0000 Signed Impressions: Service Date/Time: Tuesday, February 21, 2017 15:04 - CONCLUSION: No evidence of knee fracture. Dylan Heck MD Physical Exam CONSTITUTIONAL/GENERAL: OOB in chair NAD TUBES/LINES/DRAINS: SKIN: No jaundice, no rash EYES: non icteric CARDIOVASCULAR: Regular rate and rhythm; no murmurs,rubs or gallops RESPIRATORY/CHEST: Symmetric, respirations. diffuse rhonchi b/l to auscultation. GASTROINTESTINAL: soft no reaction to palpaption, not distended dressing in place medial laparotomy inttact incontinent of liquid brown stool GENITOURINARY Reyes catheter in place w clear light yellow urine MUSCULOSKELETAL: Extremities without clubbing, cyanosis, or edema. NEUROLOGICAL: awake alert non focal PSYCHIATRIC: calm, cooperative Assessment & Plan Remarks Multitrauma, including TBI, splenic lac Acute VDRF, resolved Aspiration PNA, prehospital - growing H.flu and MRSA, repeat just MRSA - also growing yeast, - no clin significance Splenic lac with hemorrrage sp drainage, no e/o infx - sp embolisation of spelinc artery on admission, now sp splenectomy negative intraabd fluid clx Clinically improving, stable Leukocytosis, leukemoid reaction ? nectotic tissue from embolised spleen - improved p splenectomy HIgh fever: ? line, ?persistent PNA, ?related to spleen lac and accumulated blood products in abdominal cavity?: all abouve can be contributing - trending down REC's: dc cefpeime, flagyl cont zyvox, change to PO -fu repeat BC untioll final - fu WBC, fu clinically Pt will need to be vaccinated > 2 wks from splenectomy a dose of PCV13 , followed by PPSV23 at least eight weeks later. Hib vaccine - per mother pt was fully vaccinated with all recommended chilhood vaccine - meningococcal vaccine Discussed Condition With Dr Jessica Ulloa,Ayana Vo MD Mar 08, 2017 14:33
--- NOTE | 2017-03-08 15:22 | RADRPT ---
EXAM DATE/TIME: 03/08/2017 14:52 [facility] COMPARISON: ABDOMEN SINGLE VIEW, March 07, 2017, 12:55. INDICATIONS : Confirm NG tube placement. MEDICAL HISTORY : None. SURGICAL HISTORY : None. ENCOUNTER: Subsequent ACUITY: 2 days PAIN SCORE: Non-responsive. LOCATION: Bilateral abdomen FINDINGS: Portable AP supine view of the abdomen demonstrates a feeding tube in place with metallic tip in the region of the antropyloric region of the stomach. Freeland overlie the abdomen. No organomegaly is amrit reciated. Bones demonstrate no acute finding. There are clips overlying the left upper quadrant. CONCLUSION: Feeding tube distal tip in the antropyloric region of the stomach. Dylan Don MD on March 08, 2017 at 15:19 Board Certified Radiologist. This report was verified electronically.
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
[2017-03-08] MEDS: LINEZOLID 600 MG TAB PO SCH (17:25)
[2017-03-08] MEDS: PANTOPRAZOLE SODIUM 40 MG VIAL IVP SCH (17:25)
[2017-03-08] MEDS ORDERED: ZYVO600T PO (20:20)
[2017-03-08] MEDS ORDERED: PROP40TA3 PO (20:20)
[2017-03-08] MEDS ORDERED: VALP250UDC PO (20:20)
[2017-03-08] MEDS ORDERED: ENOX40P SQ (20:20)
[2017-03-08] MEDS ORDERED: OXYC-392 PO (20:20)
[2017-03-08] MEDS ORDERED: POLY17S PO (20:20)
[2017-03-08] MEDS ORDERED: ASPI325T PO (20:20)
[2017-03-08] MEDS ORDERED: FAMO1TAB37 PO (20:20)
[2017-03-08] MEDS ORDERED: DOCU1CAP39 PO (20:20)
[2017-03-09] VITALS (17 sets, daily range): BP systolic 131–143; BP diastolic 74–90; PULSE 84–128; RESP 16–39; TEMP 98–100; O2SAT 93–97
[2017-03-09] MEDS: METOCLOPRAMIDE HCL 10 MG/2 ML VIAL IV PUSH SCH ×3 (00:22→16:34)
[2017-03-09] MEDS: guaiFENesin SOLUTION 200 MG/10 ML CUP OG-TUBE SCH ×4 (00:22→17:40)
[2017-03-09] MEDS: PROPRANOLOL HCL 40 MG TAB PO SCH ×4 (00:22→17:40)
[2017-03-09] MEDS: POTASSIUM CHLOR 20 MEQ PREMIX 100 ML IV PRN (00:22)
[2017-03-09] MEDS: RESP: ALBUTEROL 2.5 MG/IPRATROPIUM 0.5 MG NEB (SCH) NEB ×4 (03:30→20:35)
[2017-03-09] MEDS: CHLORHEXIDINE GLUCONATE 2 % 1 PACK (2 CLOTHS) TOP SCH (04:00)
[2017-03-09 05:12] LABS: AUTOMATED NEUTROPHIL # 21.4 TH/MM3 (1.8-7.7); BASOPHIL # 0.7 TH/MM3 (0-0.2); BASOPHIL % 2.2 % (0.0-2.0); EOSINOPHIL # 1.5 TH/MM3 (0-0.4); HEMATOCRIT 32.2 % (39.0-51.0); LYMPH % 10.4 % (9.0-44.0); LYMPHOCYTE # 3.2 TH/MM3 (1.0-4.8); MEAN CELL VOLUME 88.4 FL (80.0-100.0); MEAN CORPUSCULAR HEMOGLOBIN 29.3 PG (27.0-34.0); MEAN CORPUSCULAR HGB CONC 33.2 % (32.0-36.0); MONO % 12.3 % (0.0-8.0); NEUT % 70.1 % (16.0-70.0); PLATELET COUNT 1420 TH/MM3 (150-450); RED BLOOD COUNT 3.65 MIL/MM3 (4.50-5.90); RED CELL DISTRIBUTION WIDTH 13.4 % (11.6-17.2); WHITE BLOOD COUNT 30.6 TH/MM3 (4.0-11.0)
[2017-03-09 05:15] LABS: HEMO FLAGS AUTO DIFF
[2017-03-09 05:41] LABS: ALT (GPT) 38 U/L (9-52); ANION GAP 10 MEQ/L (5-15); AST (GOT) 35 U/L (15-39); BICARBONATE 22.1 MEQ/L (21.0-32.0); BLOOD UREA NITROGEN 33 MG/DL (7-18); CHLORIDE 108 MEQ/L (98-107); GLOMERULAR FILTRATION RATE 118 ML/MIN (>89); MAGNESIUM 2.6 MG/DL (1.5-2.5); POTASSIUM 3.8 MEQ/L (3.5-5.1); SODIUM (NA) 140 MEQ/L (136-145)
[2017-03-09 05:44] LABS: ALKALINE PHOSPHATASE 117 U/L (45-117); TOTAL BILIRUBIN ADULT 0.4 MG/DL (0.2-1.0)
[2017-03-09] MEDS: LINEZOLID 600 MG TAB PO SCH ×2 (05:50→17:40)
[2017-03-09] MEDS: INSULIN NovoLIN REGULAR SUPPLEMENTAL SCALE SQ SCH ×2 (06:00)
[2017-03-09 07:12] LABS: BANDS 11 % (0-6); BASOPHILS 1 % (0-2); EOSINOPHILS 4 % (0-4); METAMYELOCYTES 3 % (0-1); NEUTROPHIL # MANUAL DIFF 23.6 TH/MM3 (1.8-7.7); POLYS (SEG NEUTROPHILS) 63 % (16-70); WBC DIFF SAMPLE 100
[2017-03-09 07:13] LABS: PLATELET ESTIMATE SMEAR HIGH (NORMAL); PLATELET MORPHOLOGY NORMAL (NORMAL); SCAN/DIFF FINAL DIFF MANUAL
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
[2017-03-09] MEDS: BACITRACIN TOP OINT 15 GM TUBE TOP SCH ×2 (08:16→20:58)
[2017-03-09] MEDS: POLYETHYLENE GLYCOL 17 GM PKG PO SCH ×2 (08:16→20:56)
[2017-03-09] MEDS: MUPIROCIN 2% OINT 1 APPLIC/GM SYR NASAL SCH ×2 (08:16→20:57)
[2017-03-09] MEDS: VALPROIC ACID SYRUP 250 MG/5 ML UDC PO SCH ×3 (08:17→17:40)
[2017-03-09] MEDS: NUTRISOURCE FIBER POWDER 1 PACK G-TUBE SCH ×2 (08:17→20:57)
[2017-03-09] MEDS: ASPIRIN 325 MG TAB PO SCH (08:17)
[2017-03-09] MEDS: FUROSEMIDE 20 MG/2 ML VIAL IV PUSH SCH (08:17)
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
[2017-03-09] MEDS: ENOXAPARIN SODIUM 40 MG/0.4 ML SYRINGE SQ SCH (10:58)
[2017-03-09] MEDS: HYDROmorphone HCL PF 1 MG/ML VIAL IV PUSH PRN (12:50)
[2017-03-09] MEDS ORDERED: FUROSEMIDE 40 MG/4 ML VIAL IV PUSH ONE (13:00)
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
[2017-03-09] MEDS: PANTOPRAZOLE SODIUM 40 MG VIAL IVP SCH (17:40)
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
--- NOTE | 2017-03-09 18:20 | RADRPT ---
EXAM DATE/TIME: 03/09/2017 17:44 [facility] COMPARISON: CHEST SINGLE AP, March 08, 2017, 3:55. INDICATIONS : Dyspnea today. MEDICAL HISTORY : None. SURGICAL HISTORY : None. ENCOUNTER: Subsequent ACUITY: 1 day PAIN SCORE: Non-responsive. LOCATION: Bilateral chest FINDINGS: There is a feeding tube seen in the esophagus with the tip directed off the inferior aspect of the im age into the stomach. Skin ophelia are seen over the midline in the upper abdomen. Clips are seen in the left upper quadrant. There is minimal patchy density identified in the right perihilar region. Th e left lung is grossly clear. The heart size is normal. CONCLUSION: Minimal patchy consolidation in the right perihilar region. The aeration of the lungs actually appear somewhat improved on the current exam. Dylan Alejandre MD on March 09, 2017 at 18:16 Board Certified Radiologist. This report was verified electronically.
[2017-03-09 20:11] LABS: BLOOD GAS BASE EXCESS -0.1 mmol/L (-2-2); BLOOD GAS CARBOXYHEMOGLOBIN 1.3 % (0-4); BLOOD GAS HCO3 23 mmol/L (22-26); BLOOD GAS METHEMOGLOBIN 0.8 % (0-2); BLOOD GAS O2 HGB SATURATION 95 % (90-100); BLOOD GAS OXYGEN CONTENT 15.2 Vol % (12.0-20.0); BLOOD GAS PCO2 28 mmHg (38-42); BLOOD GAS PO2 84 mmHg (61-120); BLOOD GAS TOTAL HGB 11.4 G/DL (12.0-16.0); TEMP CORR TO 98.6
[2017-03-09 20:12] LABS: CRITICAL VALUE YES; DRAW SITE RT RADIAL; FIO2 40 %; NUMBER OF ARTERIAL PUNCTURES 1; OXYGEN DEVICE BIPAP; STAT NO; ULNAR PULSE PRESENT; VENT SETTINGS IPAP 10/ EPAP 5
[2017-03-09] MEDS ORDERED: LORazepam 2 MG/ML VIAL IV PUSH ONE (20:45)
[2017-03-09] MEDS: METOPROLOL TARTRATE 5 MG/5 ML VIAL IV PUSH PRN (23:05)
[2017-03-10] VITALS (16 sets, daily range): BP systolic 114–136; BP diastolic 69–82; PULSE 98–130; RESP 22–48; TEMP 98.7–101.2; O2SAT 93–99
[2017-03-10] MEDS: ACETAMINOPHEN 1000 MG/100 ML VIAL IV PRN (00:38)
[2017-03-10] MEDS: CHLORHEXIDINE GLUCONATE 2 % 1 PACK (2 CLOTHS) TOP SCH (04:00)
[2017-03-10] MEDS: RESP: ALBUTEROL 2.5 MG/IPRATROPIUM 0.5 MG NEB (SCH) NEB ×4 (04:08→20:07)
[2017-03-10 04:17] LABS: AUTOMATED NEUTROPHIL # 24.5 TH/MM3 (1.8-7.7); BASOPHIL # 0.4 TH/MM3 (0-0.2); BASOPHIL % 1.2 % (0.0-2.0); EOSINOPHIL # 1.8 TH/MM3 (0-0.4); EOSINOPHIL % 5.3 % (0.0-4.0); HEMATOCRIT 33.6 % (39.0-51.0); LYMPH % 11.3 % (9.0-44.0); LYMPHOCYTE # 3.9 TH/MM3 (1.0-4.8); MEAN CELL VOLUME 88.9 FL (80.0-100.0); MEAN CORPUSCULAR HEMOGLOBIN 30.3 PG (27.0-34.0); MEAN CORPUSCULAR HGB CONC 34.1 % (32.0-36.0); MONO % 11.6 % (0.0-8.0); NEUT % 70.6 % (16.0-70.0); PLATELET COUNT 1577 TH/MM3 (150-450); RED BLOOD COUNT 3.78 MIL/MM3 (4.50-5.90); RED CELL DISTRIBUTION WIDTH 13.6 % (11.6-17.2); WHITE BLOOD COUNT 34.7 TH/MM3 (4.0-11.0)
[2017-03-10 04:18] LABS: HEMO FLAGS AUTO DIFF
[2017-03-10 04:50] LABS: ALT (GPT) 41 U/L (9-52); ANION GAP 10 MEQ/L (5-15); AST (GOT) 32 U/L (15-39); BICARBONATE 24.7 MEQ/L (21.0-32.0); BLOOD UREA NITROGEN 33 MG/DL (7-18); CHLORIDE 108 MEQ/L (98-107); GLOMERULAR FILTRATION RATE 101 ML/MIN (>89); SODIUM (NA) 143 MEQ/L (136-145)
[2017-03-10 04:52] LABS: ALKALINE PHOSPHATASE 114 U/L (45-117); TOTAL BILIRUBIN ADULT 0.5 MG/DL (0.2-1.0)
[2017-03-10] MEDS: guaiFENesin SOLUTION 200 MG/10 ML CUP OG-TUBE SCH ×2 (05:43)
[2017-03-10] MEDS: LINEZOLID 600 MG TAB PO SCH ×2 (05:43→17:30)
[2017-03-10] MEDS: PROPRANOLOL HCL 40 MG TAB PO SCH ×4 (05:43→17:31)
[2017-03-10 07:23] LABS: BANDS 8 % (0-6); EOSINOPHILS 5 % (0-4); METAMYELOCYTES 3 % (0-1); MYELOCYTES 7 % (0-0); NEUTROPHIL # MANUAL DIFF 26.4 TH/MM3 (1.8-7.7); POLYS (SEG NEUTROPHILS) 57 % (16-70); PROMYELOCYTES 1 % (0-0); WBC DIFF SAMPLE 100
[2017-03-10 07:26] LABS: OVALOCYTES 1+ (NORMAL); PLATELET ESTIMATE SMEAR HIGH (NORMAL); PLATELET MORPHOLOGY NORMAL (NORMAL); STOMATOCYTES 1+ (NORMAL)
[2017-03-10 07:27] LABS: SCAN/DIFF FINAL DIFF MANUAL
[2017-03-10] MEDS: ASPIRIN 325 MG TAB PO SCH (08:33)
[2017-03-10] MEDS: POLYETHYLENE GLYCOL 17 GM PKG PO SCH ×2 (08:33→21:00)
[2017-03-10] MEDS: METOCLOPRAMIDE HCL 10 MG/2 ML VIAL IV PUSH SCH ×3 (08:34→17:30)
[2017-03-10] MEDS: FUROSEMIDE 20 MG/2 ML VIAL IV PUSH SCH (08:35)
[2017-03-10] MEDS: VALPROIC ACID SYRUP 250 MG/5 ML UDC PO SCH ×3 (08:35→17:30)
[2017-03-10] MEDS: MUPIROCIN 2% OINT 1 APPLIC/GM SYR NASAL SCH ×2 (08:35→20:03)
[2017-03-10] MEDS: BACITRACIN TOP OINT 15 GM TUBE TOP SCH ×2 (08:38→21:00)
[2017-03-10] MEDS: NUTRISOURCE FIBER POWDER 1 PACK G-TUBE SCH ×2 (08:53→20:03)
[2017-03-10] MEDS ORDERED: ACETAMINOPHEN 325 MG TAB PO PRN (09:30)
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
[2017-03-10] MEDS ORDERED: PNEUMOCOCCAL POLYVALENT INJ 25 MCG/0.5 ML SYR IM ONE (10:00)
[2017-03-10] MEDS ORDERED: MENINGOCOCCAL CONJUGATE VACCINE 0.5 ML VIAL IM ONE (10:00)
[2017-03-10] MEDS ORDERED: HAEMOPH B POLYSACCH CONJ VACCINE 0.5 ML VIAL IM ONE (10:00)
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
[2017-03-10] MEDS: ENOXAPARIN SODIUM 40 MG/0.4 ML SYRINGE SQ SCH (10:33)
[2017-03-10] MEDS ORDERED: ALPRAZolam 0.5 MG TAB PO PRN (11:00)
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
--- NOTE | 2017-03-10 13:58 | HHI.IDPN ---
Subjective Subjective Remarks On NC O2 OOB in chair, tachypneic, sats low 90%s takes PO low grade fever yday had temp up to 101.2 Antibiotics zyvox Allergies: Coded Allergies: *MDRO Multi-Drug Resistant Organism (Verified Adverse Reaction, Unknown, ) MRSA PCR Screen POSITIVE 02/22/17 MRSA (bronc wash)-02/22/17 Objective . Vital Signs Date Time Temp Pulse Resp B/P Pulse Ox O2 Delivery O2 Flow Rate FiO2 03/10/17 11:30 94 40 03/10/17 10:00 120 03/10/17 08:46 95 Nasal Cannula 3.00 03/10/17 08:00 104 03/10/17 08:00 99.3 104 30 116/69 95 03/10/17 07:00 94 Nasal Cannula 3.00 40 Bi-Pap 03/10/17 06:00 100 03/10/17 05:00 98.7 03/10/17 04:00 107 03/10/17 04:00 99.1 107 23 120/69 95 03/10/17 02:00 102 03/10/17 00:00 101.2 112 23 136/80 94 03/10/17 00:00 112 03/09/17 22:00 128 03/09/17 21:00 94 Nasal Cannula 3.00 Bi-Pap 03/09/17 20:45 93 3.00 03/09/17 20:37 93 Nasal Cannula 3.00 03/09/17 20:00 104 03/09/17 20:00 99.3 104 29 141/85 96 03/09/17 19:00 97 Bi-Pap 03/09/17 18:00 122 03/09/17 17:20 97 40 03/09/17 16:00 98.8 108 31 136/85 96 03/09/17 16:00 108 03/09/17 14:00 104 03/09/17 03/09/17 03/10/17 15:00 23:00 07:00 Intake Total 335 ml 0 ml 283 ml Output Total 1675 ml 350 ml 250 ml Balance -1340 ml -350 ml 33 ml Intake Oral 200 ml IV Total 0 ml 0 ml 65 ml Tube Feeding 75 ml 158 ml Tube Irrigant 60 ml 60 ml Output Urine Total 1675 ml 350 ml 250 ml # Bowel Movements 1 0 0 . Laboratory Tests Test 03/09/17 03/10/17 04:53 03:49 White Blood Count 30.6 TH/MM3 34.7 TH/MM3 Red Blood Count 3.65 MIL/MM3 3.78 MIL/MM3 Hemoglobin 10.7 GM/DL 11.5 GM/DL Hematocrit 32.2 % 33.6 % Mean Corpuscular Volume 88.4 FL 88.9 FL Mean Corpuscular Hemoglobin 29.3 PG 30.3 PG Mean Corpuscular Hemoglobin 33.2 % 34.1 % Concent Red Cell Distribution Width 13.4 % 13.6 % Platelet Count 1420 TH/MM3 1577 TH/MM3 Mean Platelet Volume 7.9 FL 8.1 FL Neutrophils (%) (Auto) 70.1 % 70.6 % Lymphocytes (%) (Auto) 10.4 % 11.3 % Monocytes (%) (Auto) 12.3 % 11.6 % Eosinophils (%) (Auto) 5.0 % 5.3 % Basophils (%) (Auto) 2.2 % 1.2 % Neutrophils # (Auto) 21.4 TH/MM3 24.5 TH/MM3 Lymphocytes # (Auto) 3.2 TH/MM3 3.9 TH/MM3 Monocytes # (Auto) 3.8 TH/MM3 4.0 TH/MM3 Eosinophils # (Auto) 1.5 TH/MM3 1.8 TH/MM3 Basophils # (Auto) 0.7 TH/MM3 0.4 TH/MM3 CBC Comment AUTO DIFF AUTO DIFF Differential Total Cells 100 100 Counted Neutrophils % (Manual) 63 % 57 % Band Neutrophils % 11 % 8 % Lymphocytes % 6 % 7 % Monocytes % 12 % 12 % Eosinophils % 4 % 5 % Basophils % 1 % Neutrophils # (Manual) 23.6 TH/MM3 26.4 TH/MM3 Metamyelocytes 3 % 3 % Differential Comment FINAL DIFF FINAL DIFF MANUAL MANUAL Platelet Estimate HIGH HIGH Platelet Morphology Comment NORMAL NORMAL Red Cell Morphology Comment NORMAL Myelocytes 7 % Promyelocytes 1 % Ovalocytes 1+ Stomatocytes 1+ Laboratory Tests Test 03/08/17 03/09/17 03/10/17 17:03 04:53 03:49 Potassium Level 3.2 MEQ/L 3.8 MEQ/L 4.0 MEQ/L Sodium Level 140 MEQ/L 143 MEQ/L Chloride Level 108 MEQ/L 108 MEQ/L Carbon Dioxide Level 22.1 MEQ/L 24.7 MEQ/L Anion Gap 10 MEQ/L 10 MEQ/L Blood Urea Nitrogen 33 MG/DL 33 MG/DL Creatinine 0.83 MG/DL 0.95 MG/DL Estimat Glomerular Filtration 118 ML/MIN 101 ML/MIN Rate Random Glucose 110 MG/DL 97 MG/DL Calcium Level 8.5 MG/DL 8.5 MG/DL Magnesium Level 2.6 MG/DL Total Bilirubin 0.4 MG/DL 0.5 MG/DL Aspartate Amino Transf 35 U/L 32 U/L (AST/SGOT) Alanine Aminotransferase 38 U/L 41 U/L (ALT/SGPT) Alkaline Phosphatase 117 U/L 114 U/L B-Type Natriuretic Peptide 260 PG/ML Total Protein 6.8 GM/DL 7.6 GM/DL Albumin 2.4 GM/DL 2.7 GM/DL Procalcitonin 0.42 ng/mL Imaging Last Impressions Chest X-Ray 03/09/17 1744 Signed Impressions: Service Date/Time: Thursday, March 09, 2017 17:44 - CONCLUSION: Minimal patchy consolidation in the right perihilar region. The aeration of the lungs actually appear somewhat improved on the current exam. Dylan Alejandre MD Abdomen X-Ray 03/08/17 0000 Signed Impressions: Service Date/Time: Wednesday, March 08, 2017 14:52 - CONCLUSION: Feeding tube distal tip in the antropyloric region of the stomach. Dylan Don MD Chest CT 03/04/17 0000 Signed Impressions: Service Date/Time: February 10:56 - CONCLUSION: 1. Significant interval improvement in diffuse bilateral airspace consolidation with residual patchy airspace disease which appears slightly more nodular. Differential considerations include resolving aspiration and improving ARDS versus improving diffuse infection. 2. Mildly improved small left and trace right simple appearing pleural effusions. 3. Visualized portions of the upper abdomen demonstrate significant continued abnormal splenic enhancement consistent with splenic infarction and heterogeneous left adrenal mass consistent with possible adrenal hemorrhage. Serafin Mix MD Abdomen/Pelvis CT 03/04/17 0000 Signed Impressions: Service Date/Time: February 10:57 - CONCLUSION: 1. There are extensive bilateral pulmonary infiltrates concerning for a pneumonia. 2. No significant intra-abdominal fluid identified. There is a small bore drainage catheter in the right lower quadrant. There is a small amount of free fluid in the dependent portion of the pelvis. There is no evidence of gas within this. 3. Large splenic contusion without evidence of active bleeding. 4. Dobbhoff tube within the distal stomach. Jose Ramon Kaiser MD Head CT 02/28/17 0000 Signed Impressions: Service Date/Time: Tuesday, February 28, 2017 14:16 - CONCLUSION: 1. Resolution of left subdural hematoma. 2. Evolving intracranial hemorrhages in the right temporoparietal and left frontal lobes. No intercurrent hemorrhage. 3. Interval development of paranasal sinusitis. Serafin Mix MD Retroperitoneal Abscess Drainage 02/26/17 Signed Impressions: Service Date/Time: Sunday, February 26, 2017 17:31 - CONCLUSION: Uncomplicated CT guided drainage of pelvic fluid collection. Culture and Gram stain are pending. Catheter can be removed if the fluid is not infected. Lincoln Kaiser MD FACR Pelvis X-Ray 02/21/178 Signed Impressions: Service Date/Time: Tuesday, February 21, 2017 15:04 - CONCLUSION: Intact pelvis. Dylan Heck MD Maxillofacial CT 02/21/17 1518 Signed Impressions: Service Date/Time: Tuesday, February 21, 2017 15:36 - CONCLUSION: Comminuted fracture of the nose. The rest of the face is intact. Chronic-appearing sinus disease. Dylan Heck MD Cervical Spine CT 02/21/17 1518 Signed Impressions: Service Date/Time: Tuesday, February 21, 2017 15:36 - CONCLUSION: Intact cervical spine. Dylan Heck MD Splenic Arteriogram 02/21/17 0000 Signed Impressions: Service Date/Time: Tuesday, February 21, 2017 18:17 - CONCLUSION: 1. Selective angiography of the common hepatic artery shows no signs of hemorrhage involving the liver. 2. Selective splenic artery angiography showed no hemorrhage initially but followup angiograms did show hemorrhage within the inferior margin of the spleen. Successful embolization utilizing Gelfoam. Rao Santillan Jr., MD Lumbar Spine CT 02/21/17 0000 Signed Impressions: Service Date/Time: Tuesday, February 21, 2017 15:44 - CONCLUSION: 1. No acute fracture or subluxation in the lumbar spine. 2. Chronic L1 limbus vertebra. Dylan Heck MD Knee X-Ray 02/21/17 0000 Signed Impressions: Service Date/Time: Tuesday, February 21, 2017 15:04 - CONCLUSION: No evidence of knee fracture. Dylan Heck MD Physical Exam CONSTITUTIONAL/GENERAL: OOB in chair, moderate resp distress TUBES/LINES/DRAINS: SKIN: No jaundice, no rash EYES: non icteric CARDIOVASCULAR: Regular rate and rhythm; no murmurs,rubs or gallops RESPIRATORY/CHEST: Symmetric, respirations. few rales b/l to auscultation. GASTROINTESTINAL: soft not tender , not distended GENITOURINARY Reyes catheter in place w clear yellow urine MUSCULOSKELETAL: Extremities without clubbing, cyanosis, or edema. NEUROLOGICAL: awake alert, not much interactive though; per RN pt talks intermittely in full phrasses, appropriately PSYCHIATRIC: anxious Assessment & Plan Remarks Multitrauma, including TBI, splenic lac New apisode of acute VDRF, improved, but still tachypneic ? fluid overload, BNP is quite high Aspiration PNA, prehospital - growing H.flu and MRSA, repeat just MRSA - also growing yeast, - no clin significance Splenic lac with hemorrrage sp drainage, no e/o infx - sp embolisation of spelinc artery on admission, now sp splenectomy negative intraabd fluid clx Clinically worse from resp standpoint unstable Leukocytosis, leukemoid reaction - improved p splenectomy, but trending up agaian HIgh fever: ? line, ?persistent PNA, ?related to spleen lac and accumulated blood products in abdominal cavity?: all abouve can be contributing -new fever again ? PNA REC's: chk CXR cont zyvox PO -repeat sputum clx - fu WBC, fu clinically Pt will need to be vaccinated > 2 wks from splenectomy he still needs to receive PCV13 at least eight weeks later. Pt was given PPSV23 first Hib vaccine NOT needed - per mother pt was fully vaccinated with all recommended chilhood vaccine - meningococcal vaccine was given Discussed Condition With Ayana Aburto RN, MD Mar 10, 2017 13:58
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
[2017-03-11] VITALS (7 sets, daily range): BP systolic 12–116; BP diastolic 71–79; PULSE 84–106; RESP 22–29; TEMP 98.9–99.3; O2SAT 90–97
[2017-03-11] MEDS: PROPRANOLOL HCL 40 MG TAB PO SCH ×3 (00:11→13:11)
[2017-03-11] MEDS: METOCLOPRAMIDE HCL 10 MG/2 ML VIAL IV PUSH SCH ×2 (00:11→09:44)
[2017-03-11] MEDS: RESP: ALBUTEROL 2.5 MG/IPRATROPIUM 0.5 MG NEB (SCH) NEB ×2 (02:56→09:05)
[2017-03-11] MEDS: CHLORHEXIDINE GLUCONATE 2 % 1 PACK (2 CLOTHS) TOP SCH (04:00)
[2017-03-11 05:03] LABS: AUTOMATED NEUTROPHIL # 25.2 TH/MM3 (1.8-7.7); BASOPHIL # 0.5 TH/MM3 (0-0.2); BASOPHIL % 1.4 % (0.0-2.0); EOSINOPHIL # 2.8 TH/MM3 (0-0.4); EOSINOPHIL % 7.7 % (0.0-4.0); HEMATOCRIT 35.8 % (39.0-51.0); HEMO FLAGS AUTO DIFF; LYMPH % 12.5 % (9.0-44.0); LYMPHOCYTE # 4.6 TH/MM3 (1.0-4.8); MEAN CELL VOLUME 90.6 FL (80.0-100.0); MEAN CORPUSCULAR HEMOGLOBIN 30.5 PG (27.0-34.0); MEAN CORPUSCULAR HGB CONC 33.7 % (32.0-36.0); MONO % 10.4 % (0.0-8.0); PLATELET COUNT 1478 TH/MM3 (150-450); RED BLOOD COUNT 3.96 MIL/MM3 (4.50-5.90); RED CELL DISTRIBUTION WIDTH 14.4 % (11.6-17.2)
[2017-03-11] MEDS: LINEZOLID 600 MG TAB PO SCH (05:13)
[2017-03-11 05:32] LABS: BICARBONATE 26.1 MEQ/L (21.0-32.0)
--- NOTE | 2017-03-11 06:08 | RADRPT ---
EXAM DATE/TIME: 03/11/2017 04:33 [place] COMPARISON: CHEST SINGLE AP, March 08, 2017, 3:55. CT THORAX W CONTRAST, March 04, 2017, 10:56. CHEST SINGLE AP, March 09, 2017, 17:44. INDICATIONS : Shortness of breath. MEDICAL HISTORY : None. SURGICAL HISTORY : None. ENCOUNTER: Subsequent ACUITY: 2 weeks PAIN SCORE: Non-responsive. LOCATION: Bilateral chest FINDINGS: Patchy diffuse bilateral airspace opacities similar to prior. The heart is normal in size. Both hem idiaphragms well delineated. CONCLUSION: Stable severity to the patchy bilateral infiltrates. Rao Feliciano MD on March 11, 2017 at 6:05 Board Certified Radiologist. This report was verified electronically.
[2017-03-11 06:12] LABS: BANDS 11 % (0-6); BASOPHILS 2 % (0-2); CORRECTED NUCLEATED RBC 1 /100 WBC (0-0); EOSINOPHILS 2 % (0-4); METAMYELOCYTES 2 % (0-1); MYELOCYTES 1 % (0-0); NEUTROPHIL # MANUAL DIFF 25.2 TH/MM3 (1.8-7.7); PLATELET ESTIMATE SMEAR HIGH (NORMAL); POLYS (SEG NEUTROPHILS) 54 % (16-70); SCAN/DIFF FINAL DIFF MANUAL; WBC DIFF SAMPLE 100
[2017-03-11 06:13] LABS: PLATELET MORPHOLOGY NORMAL (NORMAL); TOXIC GRANULATION 1+ (NORMAL)
[2017-03-11] MEDS: POLYETHYLENE GLYCOL 17 GM PKG PO SCH (09:00)
[2017-03-11] MEDS ORDERED: FAMOTIDINE 20 MG TAB PO SCH (09:00)
[2017-03-11] MEDS: ASPIRIN 325 MG TAB PO SCH (09:43)
[2017-03-11] MEDS: ENOXAPARIN SODIUM 40 MG/0.4 ML SYRINGE SQ SCH (09:43)
[2017-03-11] MEDS: MUPIROCIN 2% OINT 1 APPLIC/GM SYR NASAL SCH (09:44)
[2017-03-11] MEDS: VALPROIC ACID SYRUP 250 MG/5 ML UDC PO SCH ×2 (09:44→13:11)
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
--- NOTE | 2017-03-11 11:46 | HHI.IDPN ---
Subjective Subjective Remarks doing mucvh better on RA, no resp distress afebrile, but had fever last night to 101.2 WBC going up Antibiotics zyvox Lines periferals only , no e/o infx Allergies: Coded Allergies: *MDRO Multi-Drug Resistant Organism (Verified Adverse Reaction, Unknown, ) MRSA PCR Screen POSITIVE 02/22/17 MRSA ([facility] wash)-02/22/17 Objective . Vital Signs Date Time Temp Pulse Resp B/P Pulse Ox O2 Delivery O2 Flow Rate FiO2 03/11/17 08:39 95 21 03/11/17 07:00 98 Room Air 21 03/11/17 06:00 90 03/11/17 04:00 92 03/11/17 04:00 98.9 92 28 1279 97 03/11/17 02:00 92 03/11/17 01:56 17 03/11/17 00:00 99.3 106 29 116/75 90 03/11/17 00:00 106 03/10/17 22:00 105 03/10/17 20:07 93 Nasal Cannula 4.00 03/10/17 20:00 99.1 110 48 119/77 94 03/10/17 20:00 110 03/10/17 19:00 95 Nasal Cannula 3.00 Bi-Pap 03/10/17 18:00 115 03/10/17 16:00 98 03/10/17 16:00 98.8 98 22 114/82 99 03/10/17 14:00 115 03/10/17 12:00 99.0 128 44 115/73 95 03/10/17 12:00 130 03/10/17 03/10/17 03/11/17 15:00 23:00 07:00 Intake Total 450 ml 240 ml 400 ml Output Total 600 ml 750 ml 350 ml Balance -150 ml -510 ml 50 ml Intake Oral 360 ml 240 ml 400 ml IV Total 0 ml Tube Feeding 40 ml Tube Irrigant 50 ml Output Urine Total 600 ml 750 ml 350 ml # Bowel Movements 1 2 . Laboratory Tests Test 03/10/17 03/11/17 03:49 04:14 White Blood Count 34.7 TH/MM3 37.0 TH/MM3 Red Blood Count 3.78 MIL/MM3 3.96 MIL/MM3 Hemoglobin 11.5 GM/DL 12.1 GM/DL Hematocrit 33.6 % 35.8 % Mean Corpuscular Volume 88.9 FL 90.6 FL Mean Corpuscular Hemoglobin 30.3 PG 30.5 PG Mean Corpuscular Hemoglobin 34.1 % 33.7 % Concent Red Cell Distribution Width 13.6 % 14.4 % Platelet Count 1577 TH/MM3 1478 TH/MM3 Mean Platelet Volume 8.1 FL 8.2 FL Neutrophils (%) (Auto) 70.6 % 68.0 % Lymphocytes (%) (Auto) 11.3 % 12.5 % Monocytes (%) (Auto) 11.6 % 10.4 % Eosinophils (%) (Auto) 5.3 % 7.7 % Basophils (%) (Auto) 1.2 % 1.4 % Neutrophils # (Auto) 24.5 TH/MM3 25.2 TH/MM3 Lymphocytes # (Auto) 3.9 TH/MM3 4.6 TH/MM3 Monocytes # (Auto) 4.0 TH/MM3 3.8 TH/MM3 Eosinophils # (Auto) 1.8 TH/MM3 2.8 TH/MM3 Basophils # (Auto) 0.4 TH/MM3 0.5 TH/MM3 CBC Comment AUTO DIFF AUTO DIFF Differential Total Cells 100 100 Counted Neutrophils % (Manual) 57 % 54 % Band Neutrophils % 8 % 11 % Lymphocytes % 7 % 19 % Monocytes % 12 % 9 % Eosinophils % 5 % 2 % Neutrophils # (Manual) 26.4 TH/MM3 25.2 TH/MM3 Metamyelocytes 3 % 2 % Myelocytes 7 % 1 % Promyelocytes 1 % Differential Comment FINAL DIFF FINAL DIFF MANUAL MANUAL Platelet Estimate HIGH HIGH Platelet Morphology Comment NORMAL NORMAL Ovalocytes 1+ Stomatocytes 1+ Basophils % 2 % Nucleated Red Blood Cells 1 /100 WBC Toxic Granulation 1+ Laboratory Tests Test 03/10/17 03/11/17 03:49 04:14 Sodium Level 143 MEQ/L 142 MEQ/L Potassium Level 4.0 MEQ/L 4.0 MEQ/L Chloride Level 108 MEQ/L 107 MEQ/L Carbon Dioxide Level 24.7 MEQ/L 26.1 MEQ/L Anion Gap 10 MEQ/L 9 MEQ/L Blood Urea Nitrogen 33 MG/DL 26 MG/DL Creatinine 0.95 MG/DL 0.86 MG/DL Estimat Glomerular Filtration 101 ML/MIN 113 ML/MIN Rate Random Glucose 97 MG/DL 102 MG/DL Calcium Level 8.5 MG/DL 8.8 MG/DL Total Bilirubin 0.5 MG/DL Aspartate Amino Transf 32 U/L (AST/SGOT) Alanine Aminotransferase 41 U/L (ALT/SGPT) Alkaline Phosphatase 114 U/L Total Protein 7.6 GM/DL Albumin 2.7 GM/DL B-Type Natriuretic Peptide 95 PG/ML Microbiology Date/Time Procedure Status Source Growth 03/10/17 22:30 Gram Stain - Final Resulted Sputum Expectorated Sputum 03/10/17 22:30 Sputum Culture - Preliminary Resulted Sputum Expectorated Sputum RESULTS PENDING Imaging Last Impressions Chest X-Ray 03/11/17 0600 Signed Impressions: Service Date/Time: February 04:33 - CONCLUSION: Stable severity to the patchy bilateral infiltrates. Rao Feliciano MD Abdomen X-Ray 03/08/17 0000 Signed Impressions: Service Date/Time: Wednesday, March 08, 2017 14:52 - CONCLUSION: Feeding tube distal tip in the antropyloric region of the stomach. Dylan Don MD Chest CT 03/04/17 0000 Signed Impressions: Service Date/Time: February 10:56 - CONCLUSION: 1. Significant interval improvement in diffuse bilateral airspace consolidation with residual patchy airspace disease which appears slightly more nodular. Differential considerations include resolving aspiration and improving ARDS versus improving diffuse infection. 2. Mildly improved small left and trace right simple appearing pleural effusions. 3. Visualized portions of the upper abdomen demonstrate significant continued abnormal splenic enhancement consistent with splenic infarction and heterogeneous left adrenal mass consistent with possible adrenal hemorrhage. Serafin Mix MD Abdomen/Pelvis CT 03/04/17 0000 Signed Impressions: Service Date/Time: February 10:57 - CONCLUSION: 1. There are extensive bilateral pulmonary infiltrates concerning for a pneumonia. 2. No significant intra-abdominal fluid identified. There is a small bore drainage catheter in the right lower quadrant. There is a small amount of free fluid in the dependent portion of the pelvis. There is no evidence of gas within this. 3. Large splenic contusion without evidence of active bleeding. 4. Dobbhoff tube within the distal stomach. Jose Ramon Kaiser MD Head CT 02/28/17 0000 Signed Impressions: Service Date/Time: Tuesday, February 28, 2017 14:16 - CONCLUSION: 1. Resolution of left subdural hematoma. 2. Evolving intracranial hemorrhages in the right temporoparietal and left frontal lobes. No intercurrent hemorrhage. 3. Interval development of paranasal sinusitis. Serafin Mix MD Retroperitoneal Abscess Drainage 02/26/17 Signed Impressions: Service Date/Time: Sunday, February 26, 2017 17:31 - CONCLUSION: Uncomplicated CT guided drainage of pelvic fluid collection. Culture and Gram stain are pending. Catheter can be removed if the fluid is not infected. Lincoln Kaiser MD FACR Pelvis X-Ray 02/21/171517 Signed Impressions: Service Date/Time: Tuesday, February 21, 2017 15:04 - CONCLUSION: Intact pelvis. Dylan Heck MD Maxillofacial CT 02/21/171517 Signed Impressions: Service Date/Time: Tuesday, February 21, 2017 15:36 - CONCLUSION: Comminuted fracture of the nose. The rest of the face is intact. Chronic-appearing sinus disease. Dylan Heck MD Cervical Spine CT 02/21/171517 Signed Impressions: Service Date/Time: Tuesday, February 21, 2017 15:36 - CONCLUSION: Intact cervical spine. Dylan eHck MD Splenic Arteriogram 02/21/17 Signed Impressions: Service Date/Time: Tuesday, February 21, 2017 18:17 - CONCLUSION: 1. Selective angiography of the common hepatic artery shows no signs of hemorrhage involving the liver. 2. Selective splenic artery angiography showed no hemorrhage initially but followup angiograms did show hemorrhage within the inferior margin of the spleen. Successful embolization utilizing Gelfoam. Rao Santillan Jr., MD Lumbar Spine CT 02/21/17 Signed Impressions: Service Date/Time: Tuesday, February 21, 2017 15:44 - CONCLUSION: 1. No acute fracture or subluxation in the lumbar spine. 2. Chronic L1 limbus vertebra. Dylan Heck MD Knee X-Ray 02/21/17 Signed Impressions: Service Date/Time: Tuesday, February 21, 2017 15:04 - CONCLUSION: No evidence of knee fracture. Dylan Heck MD Physical Exam CONSTITUTIONAL/GENERAL: OOB in chair, moderate resp distress TUBES/LINES/DRAINS: SKIN: No jaundice, no rash HEENT: temporal wasting noted EYES: non icteric CARDIOVASCULAR: Regular rate and rhythm; no murmurs,rubs or gallops RESPIRATORY/CHEST: Symmetric, respirations. few rales b/l to auscultation. GASTROINTESTINAL: soft not tender , not distended medial laparotomy incision dry and clean and healing nicely GENITOURINARY condom catheter in place w clear yellow urine MUSCULOSKELETAL: Extremities without clubbing, cyanosis, or edema. NEUROLOGICAL: awake alert, not much interactive though; RN reports pts was answering her in wispering , oriented x 1-2 PSYCHIATRIC:calm Assessment & Plan Remarks Multitrauma, including TBI, splenic lac New apisode of acute VDRF, improved, but still tachypneic ? fluid overload, BNP is quite high Aspiration PNA, prehospital - growing H.flu and MRSA, repeat just MRSA - also growing yeast, - no clin significance Splenic lac with hemorrrage sp drainage, no e/o infx - sp embolisation of spelinc artery on admission, now sp splenectomy negative intraabd fluid clx Clinically worse from resp standpoint unstable Leukocytosis, leukemoid reaction: persistent fever - persistent - improved p splenectomy, but trending up agaian HIgh fever: ? line, ?persistent PNA, ?related to spleen lac and accumulated blood products in abdominal cavity?: all abouve can be contributing -new fever again ? PNA REC's: chk CXR cont zyvox PO x 14 days total - monitor for bone marrow suppression, bicard - fu repeat sputum clx - fu WBC, fu clinically - rechk BC - monitor temps, with persistent fever will need re-imaging (abdomen and chest) Pt was vaccinated for 1st dose of meningicoccal and penumococcal (Pneumovax) yday he still needs to receive PCV13 at least eight weeks later. Pt was given PPSV23 first Hib vaccine NOT needed - per mother pt was fully vaccinated with all recommended chilhood vaccine Discussed Condition With S Ayana Ann RN, MD Mar 11, 2017 11:46
[2017-03-11] MEDS ORDERED: ZYVO600T PO (12:06)
[2017-03-11] MEDS: BACITRACIN TOP OINT 15 GM TUBE TOP SCH (13:12)
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
[2017-03-14] MEDS ORDERED: LINEZOLID 600 MG TAB PO SCH (18:00)
== END 2017-03-11 13:33 | DRG 955 ==
LOC: EDSEX → EDBD → NEPI 15:00 → N03A 15:49 → EDSEX 15:49 → EDBD 15:49 → UNMERGE 15:49 → MERGE 15:49
PROVIDERS: ADMIT Surgery; ATTEND Surgery
PROC: 0BH17EZ Insertion of Endotracheal Airway into Trachea, Via Natural or Artificial Opening (ICD-10-PCS; principal; 2017-02-21)
PROC: 00H632Z Insertion of Monitoring Device into Cerebral Ventricle, Percutaneous Approach (ICD-10-PCS; 2017-02-21)
PROC: 5A1955Z Respiratory Ventilation, Greater than 96 Consecutive Hours (ICD-10-PCS; 2017-02-21)
PROC: 4A103BD Monitoring of Intracranial Pressure, Percutaneous Approach (ICD-10-PCS; 2017-02-21)
PROC: 0HQ0XZZ Repair Scalp Skin, External Approach (ICD-10-PCS; 2017-02-21)
PROC: 0HQ1XZZ Repair Face Skin, External Approach (ICD-10-PCS; 2017-02-21)
PROC: 0HQ0XZZ Repair Scalp Skin, External Approach (ICD-10-PCS; 2017-02-21)
PROC: 05H533Z Insertion of Infusion Device into Right Subclavian Vein, Percutaneous Approach (ICD-10-PCS; 2017-02-21)
PROC: 03HY32Z Insertion of Monitoring Device into Upper Artery, Percutaneous Approach (ICD-10-PCS; 2017-02-21)
PROC: 4A133B1 Monitoring of Arterial Pressure, Peripheral, Percutaneous Approach (ICD-10-PCS; 2017-02-21)
PROC: 4A133J1 Monitoring of Arterial Pulse, Peripheral, Percutaneous Approach (ICD-10-PCS; 2017-02-21)
PROC: 0B9F8ZX Drainage of Right Lower Lung Lobe, Via Natural or Artificial Opening Endoscopic, Diagnostic (ICD-10-PCS; 2017-02-22)
PROC: 0B9C8ZX Drainage of Right Upper Lung Lobe, Via Natural or Artificial Opening Endoscopic, Diagnostic (ICD-10-PCS; 2017-02-22)
PROC: 0B9D8ZX Drainage of Right Middle Lung Lobe, Via Natural or Artificial Opening Endoscopic, Diagnostic (ICD-10-PCS; 2017-02-22)
PROC: 0B938ZX Drainage of Right Main Bronchus, Via Natural or Artificial Opening Endoscopic, Diagnostic (ICD-10-PCS; 2017-02-22)
PROC: 04V43DZ Restriction of Splenic Artery with Intraluminal Device, Percutaneous Approach (ICD-10-PCS; 2017-02-24)
PROC: 0BC78ZZ Extirpation of Matter from Left Main Bronchus, Via Natural or Artificial Opening Endoscopic (ICD-10-PCS; 2017-02-26)
PROC: 0BC38ZZ Extirpation of Matter from Right Main Bronchus, Via Natural or Artificial Opening Endoscopic (ICD-10-PCS; 2017-02-26)
PROC: 0W9G30Z Drainage of Peritoneal Cavity with Drainage Device, Percutaneous Approach (ICD-10-PCS; 2017-02-26)
PROC: 02HV33Z Insertion of Infusion Device into Superior Vena Cava, Percutaneous Approach (ICD-10-PCS; 2017-02-28)
PROC: 04HY32Z Insertion of Monitoring Device into Lower Artery, Percutaneous Approach (ICD-10-PCS; 2017-02-28)
PROC: 05HM33Z Insertion of Infusion Device into Right Internal Jugular Vein, Percutaneous Approach (ICD-10-PCS; 2017-02-28)
PROC: 07TP0ZZ Resection of Spleen, Open Approach (ICD-10-PCS; 2017-03-04)
PROC: 0WJJ0ZZ Inspection of Pelvic Cavity, Open Approach (ICD-10-PCS; 2017-03-04)
PROC: 0W9G0ZZ Drainage of Peritoneal Cavity, Open Approach (ICD-10-PCS; 2017-03-04)
DX: S36.032A Major laceration of spleen, initial encounter (principal); S06.5X0A Traumatic subdural hemorrhage without loss of consciousness, initial encounter; J96.01 Acute respiratory failure with hypoxia; R65.20 Severe sepsis without septic shock; J69.0 Pneumonitis due to inhalation of food and vomit; R57.9 Shock, unspecified; A41.9 Sepsis, unspecified organism; G93.40 Encephalopathy, unspecified; J15.212 Pneumonia due to Methicillin resistant Staphylococcus aureus; J14 Pneumonia due to Hemophilus influenzae; T17.890A Other foreign object in other parts of respiratory tract causing asphyxiation, initial encounter; J98.11 Atelectasis; S02.2XXA Fracture of nasal bones, initial encounter for closed fracture; S81.011A Laceration without foreign body, right knee, initial encounter; S01.312A Laceration without foreign body of left ear, initial encounter; S01.01XA Laceration without foreign body of scalp, initial encounter; S01.81XA Laceration without foreign body of other part of head, initial encounter; V47.5XXA Car driver injured in collision with fixed or stationary object in traffic accident, initial encounter; Y92.410 Unspecified street and highway as the place of occurrence of the external cause; Y93.89 Activity, other specified; Y99.9 Unspecified external cause status; R00.0 Tachycardia, unspecified; D47.3 Essential (hemorrhagic) thrombocythemia; F02.80 Dementia in other diseases classified elsewhere, unspecified severity, without behavioral disturbance, psychotic disturbance, mood disturbance, and anxiety; Z23 Encounter for immunization; E27.8 Other specified disorders of adrenal gland; Z78.1 Physical restraint status; I10 Essential (primary) hypertension; E87.70 Fluid overload, unspecified; D75.89 Other specified diseases of blood and blood-forming organs; D72.823 Leukemoid reaction
CPT/HCPCS: 31500; 36246; 36248; 36556; 36600; 36620; 37244; 49406; 61210; 70450; 70486; 71010; 71260; 72125; 72131; 72170; 73560; 74000; 74177; 75726; 75774; 76937; 80048; 80053; 80164; 80202; 80307; 81001; 82435; 82565; 82805; 82947; 82948; 83735; 83880; 84100; 84132; 84145; 84155; 84295; 84520; 85007; 85014; 85018; 85025; 85027; 85610; 85730; 86403; 86850; 86900; 86901; 86920; 87015; 87040; 87070; 87086; 87102; 87116; 87147; 87186; 87205; 87206; 87493; 87641; 88305; 90471; 90715; 90732; 90734; 93306; 94002; 94003; 94150; 94640; 94664; 94667; 94668; 94770; 96374; C1729; C1769; C1887; C1894; C9113; J0131; J0171; J0330; J0456; J0461; J0690; J0692; J1120; J1170; J1630; J1650; J1800; J1940; J1953; J1956; J2020; J2060; J2248; J2250; J2270; J2370; J2405; J2543; J2765; J3010; J3370; J3411; J3480; J3486; J7030; J7040; J7050; J7120; J7608; P9045; Q9967

== ENCOUNTER → 2017-11-24 | Emergency (ER) | payer BC, OTHER ==
[~2017-11-24] MED LIST changes: +DIVA250T PO; -LIDOCAINE HCL 2% 100 MG/5 ML SYRINGE IV PUSH ONE; +MELA5 PO; +WHEEMIS3
[2017-11-24 15:14] VITALS: BP 108/67; PULSE 80; RESP 16; TEMP 97.5; O2SAT 99
[2017-11-24 15:27] LABS: AUTOMATED NEUTROPHIL # 4.7 TH/MM3 (1.8-7.7); BASOPHIL # 0.3 TH/MM3 (0-0.2); BASOPHIL % 2.9 % (0.0-2.0); EOSINOPHIL # 0.7 TH/MM3 (0-0.4); HEMATOCRIT 44.9 % (39.0-51.0); HEMOGLOBIN 15.4 GM/DL (13.0-17.0); LYMPH % 32.5 % (9.0-44.0); LYMPHOCYTE # 3.2 TH/MM3 (1.0-4.8); MEAN CORPUSCULAR HGB CONC 34.4 % (32.0-36.0); MEAN PLATELET VOLUME 8.5 FL (7.0-11.0); MONO % 9.8 % (0.0-8.0); NEUT % 47.8 % (16.0-70.0); PLATELET COUNT 391 TH/MM3 (150-450); RED BLOOD COUNT 4.98 MIL/MM3 (4.50-5.90); RED CELL DISTRIBUTION WIDTH 13.3 % (11.6-17.2); WHITE BLOOD COUNT 9.8 TH/MM3 (4.0-11.0)
[2017-11-24 16:00] LABS: ALBUMIN 4.3 GM/DL (3.4-5.0); AST (GOT) 12 U/L (15-37); BICARBONATE 21.9 MEQ/L (21.0-32.0); BLOOD UREA NITROGEN 10 MG/DL (7-18); CHLORIDE 109 MEQ/L (98-107); CREATININE 0.93 MG/DL (0.60-1.30); GLOMERULAR FILTRATION RATE 103 ML/MIN (>89); GLUCOSE,RANDOM 99 MG/DL (74-106); SODIUM (NA) 140 MEQ/L (136-145)
[2017-11-24 16:04] LABS: ALKALINE PHOSPHATASE 70 U/L (45-117); ALT (GPT) 20 U/L (12-78); TOTAL BILIRUBIN ADULT 0.5 MG/DL (0.2-1.0); TOTAL PROTEIN 7.5 GM/DL (6.4-8.2)
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
[2017-11-24 17:53] VITALS: BP 134/64; PULSE 76; RESP 18; O2SAT 97
[2017-11-25 12:09] LABS: BACTERIA, URINE OCC /hpf; BILIRUBIN, URINE NEG (NEG); BLOOD, URINE NEG (NEG); GLUCOSE,URINE NEG (NEG); KETONE, URINE NEG (NEG); NITRITE,URINE NEG (NEG); PH, URINE 6.5 (5.0-8.5); SQUAMOUS EPITHELIAL CELL URINE <1 /hpf (0-5); URINE COLOR YELLOW (YELLW/STRAW); URINE LEUKOCYTE ESTERASE SMALL (NEG)
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
--- NOTE | 2017-11-25 14:22 | PD ---
Physical Exam Date Seen by Provider: Nov 25, 2017 Time Seen by Provider: 14:20 Data Data Last Documented VS Vital Signs Date Time Temp Pulse Resp B/P (MAP) Pulse Ox O2 Delivery O2 Flow Rate FiO2 11/24/17 17:53 76 18 134/64 (87) 97 Room Air 11/24/17 15:14 97.5 Orders Orders Complete Blood Count With Diff (11/24/17 15:04) Comprehensive Metabolic Panel (11/24/17 15:04) Urinalysis - C+S If Indicated (11/24/17 15:04) Psych Screen (11/24/17 15:04) Drug Screen, Random Urine (11/24/17 15:04) Alcohol (Ethanol) (11/24/17 15:04) Diet Regular Basic (11/24/17 Dinner) Diet Regular Basic (11/25/17 Breakfast) Diet Regular Basic (11/25/17 Lunch) Urine Culture (11/25/17 11:00) Ed Discharge Order (11/25/17 14:17) Labs Laboratory Tests Test 11/24/17 15:00 11/25/17 11:00 White Blood Count 9.8 TH/MM3 Red Blood Count 4.98 MIL/MM3 Hemoglobin 15.4 GM/DL Hematocrit 44.9 % Mean Corpuscular Volume 90.0 FL Mean Corpuscular Hemoglobin 31.0 PG Mean Corpuscular Hemoglobin Concent 34.4 % Red Cell Distribution Width 13.3 % Platelet Count 391 TH/MM3 Mean Platelet Volume 8.5 FL Neutrophils (%) (Auto) 47.8 % Lymphocytes (%) (Auto) 32.5 % Monocytes (%) (Auto) 9.8 % Eosinophils (%) (Auto) 7.0 % Basophils (%) (Auto) 2.9 % Neutrophils # (Auto) 4.7 TH/MM3 Lymphocytes # (Auto) 3.2 TH/MM3 Monocytes # (Auto) 1.0 TH/MM3 Eosinophils # (Auto) 0.7 TH/MM3 Basophils # (Auto) 0.3 TH/MM3 CBC Comment DIFF FINAL Differential Comment Blood Urea Nitrogen 10 MG/DL Creatinine 0.93 MG/DL Random Glucose 99 MG/DL Total Protein 7.5 GM/DL Albumin 4.3 GM/DL Calcium Level 10.0 MG/DL Alkaline Phosphatase 70 U/L Aspartate Amino Transf (AST/SGOT) 12 U/L Alanine Aminotransferase (ALT/SGPT) 20 U/L Total Bilirubin 0.5 MG/DL Sodium Level 140 MEQ/L Potassium Level 4.1 MEQ/L Chloride Level 109 MEQ/L Carbon Dioxide Level 21.9 MEQ/L Anion Gap 9 MEQ/L Estimat Glomerular Filtration Rate 103 ML/MIN Ethyl Alcohol Level LESS THAN 3 MG/DL Urine Color YELLOW Urine Turbidity HAZY Urine pH 6.5 Urine Specific [place] 1.024 Urine Protein NEG mg/dL Urine Glucose (UA) NEG mg/dL Urine Ketones NEG mg/dL Urine Occult Blood NEG Urine Nitrite NEG Urine Bilirubin NEG Urine Urobilinogen LESS THAN 2.0 MG/DL Urine Leukocyte Esterase SMALL Urine RBC 4 /hpf Urine WBC 18 /hpf Urine Squamous Epithelial Cells <1 /hpf Urine Bacteria OCC /hpf Urine Yeast (Budding) RARE Microscopic Urinalysis Comment CULTURE INDICATED Urine Opiates Screen NEG Urine Barbiturates Screen NEG Urine Amphetamines Screen POS Urine Benzodiazepines Screen POS Urine Cocaine Screen NEG Urine Cannabinoids Screen POS MDM Medical Record Reviewed: Yes Supervised Visit with BRANT: No Narrative Course 22-year-old male presents to the emergency room for evaluation of suicidal ideation after making a suicidal statement to his mother. He was placed under Walton act. He was seen by psychiatrist and Walton act was lifted. Patient denies suicidal homicidal ideation at this time. States he is anxious to leave. His brother is here to pick him up. Labs reviewed and stable. Will wait for urine culture. Vital signs stable. He is stable for outpatient follow -up. Diagnosis Primary Impression: Medical clearance for psychiatric admission Additional Impression: Adjustment disorder Qualified Codes: F43.20 - Adjustment disorder, unspecified Referrals: Primary Care Physician Additional Instruction: Follow-up per psychiatrist recommendations. Return to the emergency room for worsening symptoms. Scripts No Active Prescriptions or Reported Meds Disposition: 01 DISCHARGE HOME Condition: Stable Paula Degroot Nov 25, 2017 14:22
== END | disposition home or self-care (01) ==
LOC: NEDAMB 14:45
DX: F43.20 Adjustment disorder, unspecified (principal); F41.9 Anxiety disorder, unspecified; F12.90 Cannabis use, unspecified, uncomplicated; F17.210 Nicotine dependence, cigarettes, uncomplicated; Z88.8 Allergy status to other drugs, medicaments and biological substances
CPT/HCPCS: 80053; 80307; 81001; 85025; 87086; 99283